=== PATIENT | female | born 1950 | race Hispanic/Latino ===

== ENCOUNTER 2018-08-12 10:14 | Inpatient (IN) | payer MEDICARE ==
[~2018-08-12] VITALS: Ht 162.6 cm; Wt 86.7 kg
[2018-08-12] MEDS ORDERED: PANTOPRAZOLE 40 MG 10ML VIAL IV NR (10:49)
--- NOTE | 2018-08-12 11:32 | Diagnostic Imaging Report ---
Examination: Single AP view of the chest. COMPARISON: None. INDICATION: Jaundice, itching DISCUSSION: Lines/tubes: None. Lungs: The lungs are well inflated and clear. There is no evidence of pneumonia or pulmonary edema. Pleura: There is no pleural effusion or pneumothorax. Heart and mediastinum: The heart and the mediastinum are unremarkable with the exception of atherosclerotic calcification of the thoracic aorta.. Bones and soft tissues: No acute bony abnormalities. IMPRESSION: 1. No acute cardiopulmonary abnormalities. Signed by: Dr. Robert Mcgee M.D. on 08/12/2018 11:29 AM
[2018-08-12 11:59] LABS: BILIRUBIN,URINE 3+ (NEGATIVE); CLARITY,URINE SL CLOUDY (CLEAR); COLOR,URINE AMBER (YELLOW); KETONES,URINE TRACE (NEGATIVE); LEUKOCYTE ESTERASE ,URINE TRACE (NEGATIVE); NITRITE,URINE NEGATIVE (NEGATIVE); PROTEIN,URINE DIPSTICK TRACE (NEGATIVE); URINE UROBILINOGEN 0.2 mg/dL (0.2 - 1)
--- NOTE | 2018-08-12 11:59 | NUR ---
UNABLE TO OBTAIN IV ACCESS AT THIS TIME.
[2018-08-12 12:00] LABS: CALCIUM OXALATE CRYSTALS,UR MANY (FEW); EPITHELIAL CELLS,URINE RARE /LPF
[2018-08-12 13:23] LABS: BASOPHILS % 0.3 % (0.0-1.0); EOSINOPHILS % 0.3 % (0.0-6.0); HEMATOCRIT 30.9 % (34.2-44.1); HEMOGLOBIN 11.4 g/dL (12.0-16.0); LYMPHOCYTES # (AUTO) 1.3 (1.0-3.2); LYMPHOCYTES % 20.5 % (18.0-39.1); MEAN CORPUSCULAR HEMOGLOBIN 31.1 pg (28-32); MEAN CORPUSCULAR HGB CONC 36.9 g/dL (31-35); MEAN CORPUSCULAR VOLUME 84.4 fL (81-99); MONOCYTES # (AUTO) 0.6 (0.2-0.8); MONOCYTES % 9.6 % (4.4-11.3); NEUTROPHILS # (AUTO) 4.4 (2.1-6.9); NEUTROPHILS % 68.8 % (38.7-80.0); PLATELET COUNT 234 x10e3/uL (140-360); RED BLOOD COUNT 3.66 x10e6/uL (3.6-5.1); RED CELL DISTRIBUTION WIDTH 19.5 % (11.7-14.4)
[2018-08-12 14:07] LABS: INR 1.23; PARTIAL THROMBOPLASTIN TIME 35.9 seconds (23.8-35.5); PROTHROMBIN TIME 16.6 seconds (11.9-14.5)
[2018-08-12 14:15] LABS: ALANINE AMINOTRANSFERASE 44 IU/L (0-55); ALBUMIN 3.4 g/dL (3.5-5.0); ALBUMIN/GLOBULIN RATIO 0.9 (0.8-2.0); ALKALINE PHOSPHATASE 506 IU/L (40-150); ANION GAP 15.8 mmol/L (8-16); BLOOD UREA NITROGEN 17 mg/dL (7-26); BUN/CREATININE RATIO 25 (6-25); CALCIUM 9.6 mg/dL (8.4-10.2); CARBON DIOXIDE 20 mmol/L (22-29); CHLORIDE 101 mmol/L (98-107); CREATINE KINASE 55 IU/L (29-168); CREATININE, SERUM 0.69 mg/dL (0.57-1.11); EST GLOMERULAR FILTRATION RATE > 60 ML/MIN (60-); GLUCOSE 139 mg/dL (74-118); LIPASE 20 U/L (8-78); MAGNESIUM 1.7 MG/DL (1.3-2.1); POTASSIUM 3.8 mmol/L (3.5-5.1); SODIUM 133 mmol/L (136-145)
[2018-08-12] MEDS ORDERED: SODIUM CHLORIDE 0.9% 1000ML 1,000 ML IV ONE (15:18)
[2018-08-12] MEDS: CEFTRIAXONE SOD 1 GM/NS 50 ML 50 ML IV SCH (16:43)
--- OUTSIDE RECORDS SUMMARY | 2018-08-12 16:45 | XMS REPORT ---
Author [facility] Address Unknown Phone Unavailable Care Team Providers Care Potato Sorter Name Role Phone Jonathan PATTERSON Unavailable Unavailable Problems This patient has no known problems. Allergies, Adverse Reactions, Alerts This patient has no known allergies or adverse reactions. Medications This patient has no known medications. Results Test Description Test Time Test Comments Text Results Atomic Results Result Comments CHEST SINGLE (PORTABLE) 2018-08-12 11:26:00 [place] [address] Patient Name: CHONG FISCHER MR #: [id number] : 1950 Age/Sex: 68/F Req #: [id number] Adm Physician: Ordered by: TAYA PATTERSON MD Report #: [id number] Location: ER Room/Bed: Procedure: [id number] DX/CHEST SINGLE (PORTABLE) Exam Date: 08/12/18 Exam Time: 1114 REPORT STATUS: Signed Examination: Single AP view of the chest. COM PARISON: None. INDICATION: Jaundice, itching DISCUSSION: Lines/tubes: None. Lungs: The lungs are well inflated and clear. There is no evidence of pneumonia or pulmonary edema. Pleura: There is no pleural effusion or pneumothorax. Heart and mediastinum: The heart and the mediastinum are unremarkable with the exception of atherosclerotic calcification of the thoracic aorta.. Bones and soft tissues: No acute bony abnormalities. IMPRESSION: 1. No acute cardiopulmonary abnormalities. Signed by: Dr. Mazin Cruz M.D. on 08/12/2018 11:29 AM Dictated By: MAZIN CRUZ MD 112 Transcribed By: VALERIE on 08/12/181128 COPY TO: TAYA PATTERSON MD
[2018-08-12] MEDS: SODIUM CHLORIDE 0.9% 1000ML 1,000 ML IV SCH (17:25)
--- NOTE | 2018-08-12 18:23 | Diagnostic Imaging Report ---
EXAM: CT Abdomen and Pelvis WITH contrast INDICATION: ^JAUNDICE. Itching all over. COMPARISON: None. TECHNIQUE: Abdomen and pelvis were scanned utilizing a multidetector helical scanner from the lung base to the pubic symphysis after administration of IV contrast. Coronal and sagittal reformations were obtained. Routine protocol was performed. Scan was performed when during portal venous phase. IV CONTRAST: 100 mL of Isovue 370 ORAL CONTRAST: Water COMPLICATIONS: None RADIATION DOSE: Total DLP: 719.05 mGy*cm Estimated effective dose: (DLP x 0.015 x size factor) mSv CTDIvol has been reviewed. It is below the limits set by the Radiation Protocol Committee (RPC). FINDINGS: LINES and TUBES: None. LOWER THORAX: There is bibasilar atelectasis. HEPATOBILIARY: No focal hepatic lesions. Significant intrahepatic and extra hepatic biliary dilatation. At the confluence of the intrahepatic bile ducts and the cystic duct it measures up to 2.0 cm (series 301, image 58). There is an acute bend resulting in mild narrowing measuring 0.9 cm (series 301, image 58). There is abrupt cut off near the ampulla measuring up to 1.1 cm (series 301, image 57). Questionable ampullary lesion measuring 1.0 cm (series 301, image 57). GALLBLADDER: There are cholecystectomy clips. SPLEEN: No splenomegaly. PANCREAS: No focal masses or ductal dilatation. Diffuse pancreatic atrophy. ADRENALS: No adrenal nodules KIDNEYS/URETERS: Kidneys enhance symmetrically. No hydronephrosis. 1.2 cm cyst in the anterior interpolar region of the right kidney. No stones. GI TRACT: Diffuse colonic wall thickening of the transverse colon and ascending colon. There is sparing of the cecum. No abnormal distention, wall thickening, or evidence of bowel obstruction in the small bowel. Appendix is not clearly identified. There is however no fat stranding or adenopathy in the right lower quadrant to suggest appendicitis. PELVIC ORGANS/BLADDER: Unremarkable. LYMPH NODES: No lymphadenopathy. VESSELS: Unremarkable. PERITONEUM / RETROPERITONEUM: No free air or fluid. BONES: Unremarkable. SOFT TISSUES: Unremarkable. IMPRESSION: 1. Significant intrahepatic and extra hepatic biliary dilatation with abrupt cutoff near the ampulla with a questionable 1.0 cm ampullary lesion. Recommend ERCP. 2. Ascending colon and transverse colonic wall thickening. This may be infectious or inflammatory. This may also be reactive secondary to hepatobiliary issues. Signed by: Dr. Sy Lazaro M.D. on 08/12/2018 6:20 PM
[2018-08-12 20:31] VITALS: BP 119/63
[2018-08-12 20:37] VITALS: BP 119/63
--- NOTE | 2018-08-12 20:40 | NUR ---
RECEIVED PATIENT FROM ER. AAOX4. NO RESP DISTRESS AT THIS TIME. DENIES PAIN. HAS IV TO L SHOULDER ARRIVED WITH BRUISING AND SWELLING, BUT NO LEAKS. C/O BURNING SENSATION WITH N/S FLUSH. NO OPEN WOUNDS. ORIENTED TO ROOM. CALL LIGHT WITHIN REACH AND INSTRUCTED TO CALL FOR ASSISTANCE. PATIENT VERBALIZED UNDERSTANDING.
[2018-08-12] MEDS ORDERED: METFORMIN HCL1000 MG PO (20:41)
[2018-08-12] MEDS ORDERED: LISINOPRIL2.5 MG PO (20:43)
[2018-08-12] MEDS ORDERED: PIOGLITAZONE HC45 MG PO (20:43)
[2018-08-12] MEDS ORDERED: LOVASTATIN20 MG (20:44)
[2018-08-12] MEDS ORDERED: VITAMIN D1000 UNI1 PO (20:46)
[2018-08-12] MEDS: INSULIN LISPRO 100 UNIT/1 ML 3ML VIAL SQ SCH (21:24)
[2018-08-12 21:30] VITALS: BP 119/63
[2018-08-12] MEDS ORDERED: SODIUM CHLORIDE 0.9% 50ML 50 ML ONE (21:51)
[2018-08-12] MEDS ORDERED: IOPAMIDOL 370 MG/ML 200 ML INFUS..BTL INJ ONE (21:51)
--- NOTE | 2018-08-12 22:30 | NUR ---
ATTEMPTED TO ACCESS NEW IV BUT WAS UNSUCCESSFUL. REPORTED TO CHARGE NURSE.
[2018-08-13] VITALS (8 sets, daily range): BP systolic 109–126; BP diastolic 54–59
[2018-08-13] MEDS: SODIUM CHLORIDE 0.9% 1000ML 1,000 ML IV SCH ×3 (02:35→22:35)
--- NOTE | 2018-08-13 06:38 | NUR ---
NEW IV ACCESS OBTAINED AT THIS TIME. OLD IV REMOVED WITH TIP INTACT. PATIENT TOLERATED PROCEDURE WELL.
[2018-08-13 06:52] LABS: BASOPHILS % 0.6 % (0.0-1.0); EOSINOPHILS # (AUTO) 0.1 (0.0-0.4); EOSINOPHILS % 0.9 % (0.0-6.0); HEMATOCRIT 30.6 % (34.2-44.1); HEMOGLOBIN 11.1 g/dL (12.0-16.0); LYMPHOCYTES # (AUTO) 0.8 (1.0-3.2); LYMPHOCYTES % 14.4 % (18.0-39.1); MEAN CORPUSCULAR HEMOGLOBIN 31.4 pg (28-32); MEAN CORPUSCULAR HGB CONC 36.3 g/dL (31-35); MEAN CORPUSCULAR VOLUME 86.4 fL (81-99); MONOCYTES # (AUTO) 0.6 (0.2-0.8); MONOCYTES % 11.6 % (4.4-11.3); NEUTROPHILS # (AUTO) 3.9 (2.1-6.9); NEUTROPHILS % 71.9 % (38.7-80.0); PLATELET COUNT 223 x10e3/uL (140-360); RED BLOOD COUNT 3.54 x10e6/uL (3.6-5.1); RED CELL DISTRIBUTION WIDTH 20.5 % (11.7-14.4)
--- NOTE | 2018-08-13 07:08 | NUR ---
RECEIVED PATIENT RESTING IN BED. RESPIRATIONS EVEN AND UNLABORED, NO ACUTE DISTRESS NOTED. CALL LIGHT WITHIN REACH. BED IN THE LOWEST POSITION.
[2018-08-13] MEDS: INSULIN LISPRO 100 UNIT/1 ML 3ML VIAL SQ SCH ×4 (07:30→21:42)
[2018-08-13 07:36] LABS: ALANINE AMINOTRANSFERASE 41 IU/L (0-55); BLOOD UREA NITROGEN 14 mg/dL (7-26); BUN/CREATININE RATIO 19 (6-25); CALCIUM 9.4 mg/dL (8.4-10.2); CARBON DIOXIDE 19 mmol/L (22-29); CHLORIDE 103 mmol/L (98-107); CREATININE, SERUM 0.72 mg/dL (0.57-1.11); EST GLOMERULAR FILTRATION RATE > 60 ML/MIN (60-); GLUCOSE 138 mg/dL (74-118); SODIUM 132 mmol/L (136-145)
[2018-08-13 07:37] LABS: ALBUMIN/GLOBULIN RATIO 0.8 (0.8-2.0); ALKALINE PHOSPHATASE 466 IU/L (40-150)
[2018-08-13] MEDS ORDERED: HYDRALAZINE HCL 20 MG/ML VIAL IV PRN (08:15)
[2018-08-13] MEDS ORDERED: DIPHENHYDRAMINE HCL 25 MG CAP PO PRN (08:15)
[2018-08-13] MEDS: PANTOPRAZOLE 40 MG 10ML VIAL IV SCH (09:02)
[2018-08-13] MEDS ORDERED: CHOLESTYRAMINE 4 GM PACKET PO PRN (11:15)
--- NOTE | 2018-08-13 11:20 | NUR ---
CALLED DR. Amadeo TERRY'S OFFICE AND SPOKE TO SUNNI IN REGARDS TO PATIENT CONSULT. SUNNI PARISH MD.
--- NOTE | 2018-08-13 11:25 | Consultation ---
DATE OF CONSULTATION: August 13, 2018 WOUND CARE CONSULTATION REASON FOR CONSULTATION: Generalized rash. HISTORY OF PRESENT ILLNESS: This 68-year-old female patient has been having extensive pruritus with scratch gross and skin breakdown to the extremities and abdomen. The patient also was getting jaundiced. She was evaluated in the ER. The patient had severe hyperbilirubinemia with bilirubin above 10. CT showed evidence of a 1.1-cm ampullary filling defect consistent with an ampullary lesion. The patient was being treated at for the rash for a few weeks. PAST MEDICAL HISTORY: Diabetes mellitus and hypertension. SURGICAL HISTORY: Cholecystectomy. PERSONAL HISTORY: Denies smoking and alcohol. GENERAL PHYSICAL EXAMINATION VITALS: Blood pressure 118/70, pulse 80. HEENT: Normal. NECK: No JVD. LUNGS: Clear. ABDOMEN: Soft. Bowel sounds present. LOWER EXTREMITIES: No edema. SKIN: She is icteric and has dry skin with scratch gross and papular eruption from chronic pruritus and itching. 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 Also, the patient has steatosis. PLAN: GI consultation and workup for ampullary lesion, most likely pancreatic cancer. May apply moist dressing and Marisol and start cholestyramine. Job#: [id number] TRINITY TAMEZ
[2018-08-13] MEDS ORDERED: DIPHENHYDRAMINE HCL INJ 50 MG/ML VIAL IV ONE (11:30)
--- NOTE | 2018-08-13 15:32 | NUR ---
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 Labs and meds reviewed. 68yo F, who was admitted for generalized rash and jaundice. GI consulted for possible ERCP. 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 Pt denied chewing/swallowing problems and nausea/vomiting. Pt was NPO; clear liquid was later ordered. Will cont to monitor. Please consult as needed. Current Diet: clear liquid diet Malnutrition Evaluation (08/13/2018) The patient does not meet criteria for a specified degree of malnutrition at this time. Will re-evaluate at follow-up as appropriate. Diet Education Needs Assessment: Diet education not indicated. Nutrition Care Level: low Signed: Christine Marsh, MS, RD, LD
[2018-08-13] MEDS: AMMONIUM LACTATE 12% LOTION 225GM BTL TOP SCH (16:19)
[2018-08-13] MEDS: PIOGLITAZONE HCL 45 MG TAB PO SCH (16:19)
[2018-08-13] MEDS: LISINOPRIL 2.5 MG TAB PO SCH (16:19)
[2018-08-13] MEDS: CEFTRIAXONE SOD 1 GM/NS 50 ML 50 ML IV SCH (16:19)
--- NOTE | 2018-08-13 19:34 | NUR ---
REPORT GIVEN TO ONCOMING NURSE, WALKING ROUNDS DONE. PATIENT RESTING IN BED. NO ACUTE DISTRESS NOTED. FAMILY AT BEDSIDE. CALL LIGHT WITHIN REACH. BED IN THE LOWEST POSITION.
[2018-08-13] MEDS ORDERED: PERMETHRIN60 GM TOP (20:02)
[2018-08-13] MEDS: SIMVASTATIN 20 MG TAB PO SCH (21:42)
[2018-08-14] VITALS: BP 112/54
--- NOTE | 2018-08-14 00:46 | NUR ---
Received patient from day nurse, patient is alert and oriented, introduced myself to patient and patient made aware of the importance of calling for help, patient verbalized understanding. safety and fall precaution maintained as per hospital protocol:bed in lowest position and locked, needed items beside bed and call hyman placed close to patient, yellow socks on patient, bed alarm set, and room made free of clutter. patient is currently stable will continue to monitor.
--- NOTE | 2018-08-14 00:51 | NUR ---
2000: patient rounded : bed in lowest position and locked, needed items beside bed and call hyman placed close to patient, yellow socks on patient, bed alarm is on, room is free of clutter. patient is currently stable will continue to monitor. 2200: patient rounded : bed in lowest position and locked, needed items beside bed and call hyman placed close to patient, yellow socks on patient, bed alarm is on, room is free of clutter. patient is currently stable will continue to monitor
[2018-08-14 04:00] VITALS: BP 126/60
[2018-08-14 06:10] LABS: BASOPHILS % 0.4 % (0.0-1.0); EOSINOPHILS # (AUTO) 0.1 (0.0-0.4); EOSINOPHILS % 1.1 % (0.0-6.0); HEMATOCRIT 28.1 % (34.2-44.1); HEMOGLOBIN 10.1 g/dL (12.0-16.0); LYMPHOCYTES # (AUTO) 1.2 (1.0-3.2); LYMPHOCYTES % 23.3 % (18.0-39.1); MEAN CORPUSCULAR HEMOGLOBIN 31.1 pg (28-32); MEAN CORPUSCULAR HGB CONC 35.9 g/dL (31-35); MEAN CORPUSCULAR VOLUME 86.5 fL (81-99); MONOCYTES # (AUTO) 0.6 (0.2-0.8); MONOCYTES % 10.9 % (4.4-11.3); NEUTROPHILS # (AUTO) 3.4 (2.1-6.9); NEUTROPHILS % 63.5 % (38.7-80.0); PLATELET COUNT 224 x10e3/uL (140-360); RED BLOOD COUNT 3.25 x10e6/uL (3.6-5.1); RED CELL DISTRIBUTION WIDTH 20.2 % (11.7-14.4)
--- NOTE | 2018-08-14 06:19 | NUR ---
0200: patient rounded : bed in lowest position and locked, needed items beside bed and call hyman placed close to patient, yellow socks on patient, bed alarm is on, room is free of clutter. patient is currently stable will continue to monitor. 0600: patient rounded : bed in lowest position and locked, needed items beside bed and call hyman placed close to patient, yellow socks on patient, bed alarm is on, room is free of clutter. patient is currently stable will continue to monitor.
[2018-08-14 06:35] LABS: ANION GAP 12.7 mmol/L (8-16); BLOOD UREA NITROGEN 10 mg/dL (7-26); BUN/CREATININE RATIO 14 (6-25); CALCIUM 9.1 mg/dL (8.4-10.2); CARBON DIOXIDE 21 mmol/L (22-29); CHLORIDE 103 mmol/L (98-107); CREATININE, SERUM 0.69 mg/dL (0.57-1.11); EST GLOMERULAR FILTRATION RATE > 60 ML/MIN (60-); GLUCOSE 94 mg/dL (74-118); MAGNESIUM 1.3 MG/DL (1.3-2.1); POTASSIUM 3.7 mmol/L (3.5-5.1); SODIUM 133 mmol/L (136-145)
--- NOTE | 2018-08-14 06:46 | NUR ---
Patient condition throughout the night was stable, report given to Nurse Mcmullen for continuity of care.
[2018-08-14 07:02] LABS: FREE T4 (FREE THYROXINE) 1.07 ng/dL (0.9-1.8); THYROID STIMULATING HORMONE 3.683 uIU/mL (0.350-4.940)
[2018-08-14] MEDS: INSULIN LISPRO 100 UNIT/1 ML 3ML VIAL SQ SCH ×4 (07:30→21:00)
[2018-08-14 08:00] VITALS: BP 129/58
[2018-08-14] MEDS: SODIUM CHLORIDE 0.9% 1000ML 1,000 ML IV SCH ×2 (08:35→18:25)
[2018-08-14 08:48] VITALS: BP 129/58
[2018-08-14] MEDS: LISINOPRIL 2.5 MG TAB PO SCH (08:48)
[2018-08-14] MEDS: PIOGLITAZONE HCL 45 MG TAB PO SCH (08:48)
[2018-08-14] MEDS: PANTOPRAZOLE 40 MG 10ML VIAL IV SCH (08:48)
[2018-08-14] MEDS: AMMONIUM LACTATE 12% LOTION 225GM BTL TOP SCH ×2 (09:25→17:08)
[2018-08-14 12:00] VITALS: BP 120/56
[2018-08-14] MEDS ORDERED: IOPAMIDOL 610MG/1ML 300 MG/ML VIAL IV ONE (13:37)
[2018-08-14] MEDS ORDERED: INDOMETHACIN 50 MG SUPP.RECT RC ONE (14:07)
[2018-08-14] MEDS ORDERED: LIDOCAINE HCL 2% LOCAL INJ 5 ML SDV VIAL INJ ONE (14:20)
[2018-08-14] MEDS ORDERED: GLUCAGON FOR INJ 1 MG VIAL ONE (14:20)
[2018-08-14] MEDS ORDERED: ROCURONIUM BROMIDE 10 MG/ML 5ML VIAL ONE (14:20)
[2018-08-14] MEDS ORDERED: LABETALOL HCL 5 MG/ML 20ML VIAL ONE (14:20)
[2018-08-14] MEDS ORDERED: PROPOFOL IV EMULSION 10 MG/ML 20 ML VIAL ONE (14:20)
[2018-08-14] MEDS ORDERED: SUCCINYLCHOLINE 200 MG/10 ML SYR ONE (14:20)
--- NOTE | 2018-08-14 15:19 | NUR ---
PT OUT FOR TESTS. CM UNABLE TO ASSESS AND GET IMM.
[2018-08-14] MEDS: CEFTRIAXONE SOD 1 GM/NS 50 ML 50 ML IV SCH (16:08)
--- NOTE | 2018-08-14 16:31 | NUR ---
Spoke with Dr. Omer regarding new surgical consult for patient.
[2018-08-14] MEDS ORDERED: MIDAZOLAM HCL 2 MG/2 ML VIAL ONE (18:21)
[2018-08-14] MEDS ORDERED: FENTANYL CITRATE/PF 100MCG/2 ML INJ ONE (18:21)
[2018-08-14 20:00] VITALS: BP 134/60
[2018-08-14] MEDS: SIMVASTATIN 20 MG TAB PO SCH (21:00)
--- NOTE | 2018-08-14 23:11 | Operative Report ---
DATE OF PROCEDURE: 08/14/2018 PROCEDURE: Endoscopic retrograde cholangiopancreatography with biopsies. ADDITIONAL REFERRING PHYSICIAN: Dr. Lj Najera. INDICATION FOR PROCEDURE: Obstructive jaundice, ampullary lesion on CT scan of the abdomen. MEDICATIONS: The patient was done under general endotracheal anesthesia. Please see anesthesiologist's note. PROCEDURE IN DETAIL: With the patient after induction of adequate general endotracheal anesthesia and in the prone position, the flexible fiberoptic Olympus ERCP scope was introduced into the esophagus and all the way down into the second portion of the duodenum. An ulcerated friable lesion was noted in the periampullary area that was impinging upon the ampulla. Despite multiple attempts, the ampulla could not be away in a common bile duct cannulating position and the common bile duct could not be cannulated. Biopsies were obtained from the lesion. The scope was subsequently withdrawn. The patient tolerated procedure well. IMPRESSION: Ulcerated friable lesion, periampullary area impinging upon the ampulla. Ampulla could not be away in common bile duct position for CBD cannulation. PLAN: Followup pathology. The patient will need IR consult for external drainage and general surgical consultation. MD RENA Ackerman/AVEL /[id number] cc: Lj Bravo MD
[2018-08-15] VITALS (7 sets, daily range): BP systolic 119–155; BP diastolic 56–68
[2018-08-15] MEDS: SODIUM CHLORIDE 0.9% 1000ML 1,000 ML IV SCH ×2 (04:45→14:42)
--- NOTE | 2018-08-15 06:00 | NUR ---
0200: patient rounded : bed in lowest position and locked, needed items beside bed and call hyman placed close to patient, yellow socks on patient, bed alarm is on, room is free of clutter. patient is currently stable will continue to monitor. 0600: patient rounded : bed in lowest position and locked, needed items beside bed and call hyman placed close to patient, yellow socks on patient, bed alarm is on, room is free of clutter. patient is currently stable will continue to monitor. 0645: Report given to telly Quarles
[2018-08-15 06:14] LABS: BASOPHILS % 0.3 % (0.0-1.0); EOSINOPHILS # (AUTO) 0.1 (0.0-0.4); EOSINOPHILS % 1.3 % (0.0-6.0); HEMATOCRIT 26.1 % (34.2-44.1); HEMOGLOBIN 9.6 g/dL (12.0-16.0); LYMPHOCYTES # (AUTO) 1.2 (1.0-3.2); MEAN CORPUSCULAR HEMOGLOBIN 31.5 pg (28-32); MEAN CORPUSCULAR HGB CONC 36.8 g/dL (31-35); MEAN CORPUSCULAR VOLUME 85.6 fL (81-99); MONOCYTES # (AUTO) 0.6 (0.2-0.8); MONOCYTES % 10.1 % (4.4-11.3); NEUTROPHILS # (AUTO) 4.4 (2.1-6.9); NEUTROPHILS % 68.8 % (38.7-80.0); PLATELET COUNT 218 x10e3/uL (140-360); RED BLOOD COUNT 3.05 x10e6/uL (3.6-5.1); RED CELL DISTRIBUTION WIDTH 20.7 % (11.7-14.4)
--- NOTE | 2018-08-15 06:15 | NUR ---
patient condition throughout the night was stable, patient endorsed to next shit(telly Quarles) for continuity of care
[2018-08-15 06:31] LABS: INR 1.31; PROTHROMBIN TIME 17.4 seconds (11.9-14.5)
[2018-08-15 06:53] LABS: ALANINE AMINOTRANSFERASE 38 IU/L (0-55); ALBUMIN 2.8 g/dL (3.5-5.0); ALBUMIN/GLOBULIN RATIO 0.8 (0.8-2.0); ALKALINE PHOSPHATASE 443 IU/L (40-150); ANION GAP 12.1 mmol/L (8-16); BLOOD UREA NITROGEN 14 mg/dL (7-26); BUN/CREATININE RATIO 20 (6-25); CALCIUM 8.9 mg/dL (8.4-10.2); CARBON DIOXIDE 22 mmol/L (22-29); CHLORIDE 107 mmol/L (98-107); CREATININE, SERUM 0.71 mg/dL (0.57-1.11); EST GLOMERULAR FILTRATION RATE > 60 ML/MIN (60-); GLUCOSE 89 mg/dL (74-118); POTASSIUM 4.1 mmol/L (3.5-5.1); SODIUM 137 mmol/L (136-145)
[2018-08-15] MEDS: INSULIN LISPRO 100 UNIT/1 ML 3ML VIAL SQ SCH ×4 (07:30→21:00)
[2018-08-15] MEDS: LISINOPRIL 2.5 MG TAB PO SCH (08:15)
[2018-08-15] MEDS: PIOGLITAZONE HCL 45 MG TAB PO SCH (08:15)
[2018-08-15] MEDS ORDERED: CHLORASEPTIC SPRAY 177 ML BTL MM PRN (09:30)
[2018-08-15] MEDS: AMMONIUM LACTATE 12% LOTION 225GM BTL TOP SCH ×2 (09:31→16:38)
[2018-08-15] MEDS: PANTOPRAZOLE 40 MG 10ML VIAL IV SCH (09:31)
--- NOTE | 2018-08-15 13:42 | Consultation ---
DATE OF CONSULTATION: August 15, 2018 CHIEF COMPLAINT: Jaundice and pleuritis. HISTORY OF PRESENT ILLNESS: Patient is a 68-year-old female who was in good health until approximately 3 months ago when she experienced increasing evidence of skin jaundice and itching. She denies abdominal pain or vomiting. No diarrhea. No fever or chills. The patient's appetite has been normal until recently. No significant weight loss. PAST MEDICAL HISTORY: Significant for hypertension and diabetes. SURGICAL HISTORY: Positive for cholecystectomy. REVIEW OF SYSTEMS: No chest pain, shortness of breath or cough. Low back pain. ALLERGIES: SHE HAS NO DRUG ALLERGIES. SOCIAL HABITS: No history of smoking or alcohol abuse. PHYSICAL EXAMINATION VITAL SIGNS: Afebrile. Vital signs are stable. GENERAL: She is awake, alert, in no apparent distress. HEENT: Sclerae are nonicteric. NECK: Supple. LUNGS: Clear. HEART: Regular rate and rhythm. ABDOMEN: Soft with some guarding in the epigastric area without rebound tenderness. EXTREMITIES: Without cyanosis or edema. LABS: White cell count 6, hemoglobin 9.6. Creatinine of 0.7. Bilirubin showed 10.6 with alkaline phosphatase of 443. CT of the abdomen revealed intrahepatic and extrahepatic biliary dilatation with cutoff near the ampulla, possible 1-cm ampullary lesion. ERCP showed ulcerated, friable lesion in the ampullary regions precluding access into the common bile duct. ASSESSMENT: Jaundice and pruritus secondary to biliary tree obstruction at the ampullary region. Biopsy pending. PLAN: Clear liquid diet. Will follow the patient's pending pathology findings. Job#: [id number]
[2018-08-15] MEDS: CEFTRIAXONE SOD 1 GM/NS 50 ML 50 ML IV SCH (16:38)
--- NOTE | 2018-08-15 20:23 | NUR ---
RECEIVED PT IN BED AOX3 RESPIRATIONS ARE EVEN AND UNLABORED .DENIES PAIN .FAMILY AT THE BEDSIDE
[2018-08-15] MEDS: SIMVASTATIN 20 MG TAB PO SCH (21:22)
[2018-08-16] VITALS (9 sets, daily range): BP systolic 123–138; BP diastolic 57–64
[2018-08-16] MEDS: SODIUM CHLORIDE 0.9% 1000ML 1,000 ML IV SCH (02:44)
[2018-08-16 03:14] LABS: BASOPHILS % 0.5 % (0.0-1.0); EOSINOPHILS # (AUTO) 0.1 (0.0-0.4); EOSINOPHILS % 1.3 % (0.0-6.0); HEMATOCRIT 26.7 % (34.2-44.1); HEMOGLOBIN 9.8 g/dL (12.0-16.0); LYMPHOCYTES # (AUTO) 1.2 (1.0-3.2); LYMPHOCYTES % 19.9 % (18.0-39.1); MEAN CORPUSCULAR HEMOGLOBIN 31.5 pg (28-32); MEAN CORPUSCULAR HGB CONC 36.7 g/dL (31-35); MEAN CORPUSCULAR VOLUME 85.9 fL (81-99); MONOCYTES # (AUTO) 0.6 (0.2-0.8); MONOCYTES % 9.5 % (4.4-11.3); NEUTROPHILS # (AUTO) 4.1 (2.1-6.9); NEUTROPHILS % 68.1 % (38.7-80.0); PLATELET COUNT 205 x10e3/uL (140-360); RED BLOOD COUNT 3.11 x10e6/uL (3.6-5.1); RED CELL DISTRIBUTION WIDTH 21.6 % (11.7-14.4)
[2018-08-16 03:32] LABS: ALANINE AMINOTRANSFERASE 40 IU/L (0-55); ALBUMIN 2.8 g/dL (3.5-5.0); ALKALINE PHOSPHATASE 479 IU/L (40-150); ANION GAP 14.7 mmol/L (8-16); BILIRUBIN,DIRECT 8.4 mg/dL (0.0-0.5); BLOOD UREA NITROGEN 11 mg/dL (7-26); BUN/CREATININE RATIO 16 (6-25); CALCIUM 8.9 mg/dL (8.4-10.2); CARBON DIOXIDE 18 mmol/L (22-29); CHLORIDE 106 mmol/L (98-107); CREATININE, SERUM 0.68 mg/dL (0.57-1.11); EST GLOMERULAR FILTRATION RATE > 60 ML/MIN (60-); GLUCOSE 85 mg/dL (74-118); POTASSIUM 3.7 mmol/L (3.5-5.1); SODIUM 135 mmol/L (136-145)
--- NOTE | 2018-08-16 06:01 | NUR ---
PT RESTING .DENIES PAIN .FAMILY AT THE BEDSIDE .CALL LIGHT WITH IN REACH .CONTINUE TO MONITOR
--- NOTE | 2018-08-16 07:08 | NUR ---
RECEIVED PATIENT RESTING IN BED. RESPIRATIONS EVEN AND UNLABORED. NO ACUTE DISTRESS NOTED. DENIES PAIN OR DISCOMFORT. DAUGHTER AT BEDSIDE. CALL LIGHT WITHIN REACH. BED IN THE LOWEST POSITION.
--- NOTE | 2018-08-16 07:22 | NUR ---
REPORT GIVEN TOT HE ON COMING NURSE
[2018-08-16] MEDS: INSULIN LISPRO 100 UNIT/1 ML 3ML VIAL SQ SCH ×4 (07:30→21:00)
[2018-08-16] MEDS: LISINOPRIL 2.5 MG TAB PO SCH (08:42)
[2018-08-16] MEDS: PANTOPRAZOLE 40 MG 10ML VIAL IV SCH (08:42)
[2018-08-16] MEDS: PIOGLITAZONE HCL 45 MG TAB PO SCH (08:42)
[2018-08-16] MEDS: AMMONIUM LACTATE 12% LOTION 225GM BTL TOP SCH ×2 (08:42→16:50)
--- NOTE | 2018-08-16 09:15 | NUR ---
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 CM/SW role and care transitions discussed. Anticipated discharge plan discussed along with duration of care. CM/SW discussed patients right to make decisions in care. CM/SW work hours given. Patient lives: [place] Admit/Transfer: ER Hospital/ER visits since last admit: NONE POA/Emergency contact: @ [phone] Current/Previous Home Health: NONE PCP/Follow-up Care: Current/Previous DME: NONE Other Services: NONE Employment Status: UNEMPLOYED Areas of Concerns: JAUNDICE AND ITCHING Referral Needs: WILL ASSESS Education Needs: NOT AT THIS TIME IMM/SALINAS given and signed (if applicable): GIVEN Goal for discharge: RETURN HOME SAFELY CM/SW left business card at the bedside with contact information. Name and number was also written on the patients whiteboard. Patient verbalized understanding of discussion. CM will follow-up with ongoing discharge and transition of care needs.
--- NOTE | 2018-08-16 14:27 | Diagnostic Imaging Report ---
EXAM: Magnetic Resonance Cholangiopancreatography (M.R.C.P.) INDICATION: ^OBSTRUCTIVE JAUNDICE COMPARISON: CT abdomen and pelvis 08/12/2018. ERCP 08/14/2018 TECHNIQUE: Multiplanar, multisequence MRCP was performed, with sequences including coronal turbo spin-echo T1-weighted scans, [facility] MRCP scans, coronal spin, coronal MPR 2, SMRCP 3D HR, [facility] MRCP KELLY performed on the scanner workstation by the technologist. IV Contrast: None Oral Contrast: None Medications: None COMPLICATIONS: None FINDINGS: LOWER THORAX: Unremarkable. HEPATOBILIARY: No focal hepatic lesions. * Significant intrahepatic biliary dilatation with being in appearance. The left biliary radicals measure up to 1.2 cm (series 8, image 20). * Multifocal beaded appearance of the intrahepatic bile ducts. * Questionable filling defects identified in the intrahepatic bile ducts (series 12, image 14) (series 11, image 15). * Common bile duct is dilated measuring 1.9 cm in diameter (series 8, image 18). * Acute tortuosity with distal common bile duct measuring 1.2 cm in diameter (series 8, image 19). This abruptly terminates at a 2.0 x 2.6 cm hypointense mass within the pancreatic head. GALLBLADDER: There are blooming artifacts at the gallbladder fossa, consistent with cholecystectomy clips. SPLEEN: No splenomegaly. PANCREAS: No focal masses or ductal dilatation. See above in hepatobiliary section. ADRENALS: No adrenal nodules KIDNEYS/URETERS: No hydronephrosis. 1.2 cm cyst in the anterior superior pole of the right kidney. 0.9 cm cyst in superior pole of the left kidney. No stones. GI TRACT: No abnormal distention, wall thickening, or evidence of bowel obstruction. LYMPH NODES: No lymphadenopathy. VESSELS: Unremarkable. PERITONEUM / RETROPERITONEUM: No free air or fluid. BONES: Unremarkable. SOFT TISSUES: Unremarkable. IMPRESSION: 1. Exam is performed without gadolinium which limits evaluation for cholangiocarcinoma. 2. 2.0 x 2.6 cm hypointense mass within the pancreatic head/ampulla causing significant intrahepatic and extra hepatic biliary dilatation. 3. Filling defects identified in the intrahepatic bile ducts, worrisome for stones or hemorrhagic products. This is less likely air related to ERCP. 4. Beaded appearance of the intrahepatic bile ducts. This raises the possibility of primary sclerosing cholangitis versus [place] cholangitis (related to the filling defects that may represent stones). Signed by: Dr. Sy Lazaro M.D. on 08/16/2018 2:23 PM
[2018-08-16] MEDS: CEFTRIAXONE SOD 1 GM/NS 50 ML 50 ML IV SCH (16:50)
--- NOTE | 2018-08-16 17:05 | NUR ---
PT OUT FOR TESTS TODAY
--- NOTE | 2018-08-16 19:27 | NUR ---
REPORT GIVEN TO ONCOMING NURSE, WALKING ROUNDS DONE. PATIENT IS RESTING IN BED. NO ACUTE DISTRESS NOTED. DAUGHTERS AT BEDSIDE. CALL LIGHT WITHIN REACH. BED IN THE LOWEST POSITION.
--- NOTE | 2018-08-16 19:44 | NUR ---
PT IS RESTING IN BED WITH FAMILY AT BEDSIDE. NO RESPIRATORY DISTRESS NOTED. BED IN THE LOWEST POSITION, LOCKED, AND CALL LIGHT WITHIN REACH. WILL CONTINUE TO MONITOR.
[2018-08-16] MEDS: SIMVASTATIN 20 MG TAB PO SCH (22:16)
[2018-08-17] VITALS (9 sets, daily range): BP systolic 115–140; BP diastolic 56–65
[2018-08-17 04:09] LABS: BASOPHILS % 0.4 % (0.0-1.0); EOSINOPHILS # (AUTO) 0.1 (0.0-0.4); EOSINOPHILS % 1.7 % (0.0-6.0); HEMATOCRIT 25.8 % (34.2-44.1); HEMOGLOBIN 9.2 g/dL (12.0-16.0); LYMPHOCYTES % 18.2 % (18.0-39.1); MEAN CORPUSCULAR HEMOGLOBIN 30.9 pg (28-32); MEAN CORPUSCULAR HGB CONC 35.7 g/dL (31-35); MEAN CORPUSCULAR VOLUME 86.6 fL (81-99); MONOCYTES # (AUTO) 0.6 (0.2-0.8); MONOCYTES % 11.8 % (4.4-11.3); NEUTROPHILS # (AUTO) 3.7 (2.1-6.9); NEUTROPHILS % 67.2 % (38.7-80.0); PLATELET COUNT 202 x10e3/uL (140-360); RED BLOOD COUNT 2.98 x10e6/uL (3.6-5.1); RED CELL DISTRIBUTION WIDTH 21.5 % (11.7-14.4)
[2018-08-17 04:30] LABS: BLOOD UREA NITROGEN 8 mg/dL (7-26); BUN/CREATININE RATIO 12 (6-25); CALCIUM 9.1 mg/dL (8.4-10.2); CHLORIDE 107 mmol/L (98-107); CREATININE, SERUM 0.68 mg/dL (0.57-1.11); EST GLOMERULAR FILTRATION RATE > 60 ML/MIN (60-); GLUCOSE 98 mg/dL (74-118); MAGNESIUM 1.4 MG/DL (1.3-2.1); POTASSIUM 3.7 mmol/L (3.5-5.1); SODIUM 136 mmol/L (136-145)
[2018-08-17 05:32] LABS: ANION GAP 12.7 mmol/L (8-16); CARBON DIOXIDE 20 mmol/L (22-29)
--- NOTE | 2018-08-17 07:00 | NUR ---
RECEIVED PATIENT RESTING IN BED. RESPIRATIONS EVEN AND UNLABORED, NO ACUTE DISTRESS NOTED. PATIENT DENIES PAIN OR DISCOMFORT AT THIS TIME. DAUGHTER AT BEDSIDE. CALL LIGHT WITHIN REACH. BED IN THE LOWEST POSITION.
[2018-08-17] MEDS: INSULIN LISPRO 100 UNIT/1 ML 3ML VIAL SQ SCH ×4 (07:30→21:00)
[2018-08-17] MEDS: PANTOPRAZOLE 40 MG 10ML VIAL IV SCH (08:03)
[2018-08-17] MEDS: PIOGLITAZONE HCL 45 MG TAB PO SCH (08:03)
[2018-08-17] MEDS: LISINOPRIL 2.5 MG TAB PO SCH (08:04)
[2018-08-17] MEDS: AMMONIUM LACTATE 12% LOTION 225GM BTL TOP SCH ×2 (08:04→16:48)
[2018-08-17] MEDS: CEFTRIAXONE SOD 1 GM/NS 50 ML 50 ML IV SCH (15:42)
--- NOTE | 2018-08-17 19:28 | NUR ---
REPORT GIVEN TO ONCOMING NURSE, WALKING ROUNDS DONE. PATIENT IS RESTING IN BED. NO ACUTE DISTRESS NOTED. DAUGHTER AT BEDSIDE. DENIES PAIN OR DISCOMFORT. CALL LIGHT WITHIN REACH. BED IN THE LOWEST POSITION.
[2018-08-17] MEDS: SIMVASTATIN 20 MG TAB PO SCH (22:03)
[2018-08-18] VITALS (8 sets, daily range): BP systolic 112–139; BP diastolic 53–63
[2018-08-18 05:57] LABS: BASOPHILS % 0.6 % (0.0-1.0); EOSINOPHILS # (AUTO) 0.1 (0.0-0.4); EOSINOPHILS % 1.7 % (0.0-6.0); HEMATOCRIT 28.9 % (34.2-44.1); HEMOGLOBIN 10.4 g/dL (12.0-16.0); LYMPHOCYTES # (AUTO) 0.9 (1.0-3.2); LYMPHOCYTES % 16.9 % (18.0-39.1); MEAN CORPUSCULAR HEMOGLOBIN 30.5 pg (28-32); MEAN CORPUSCULAR VOLUME 84.8 fL (81-99); MONOCYTES # (AUTO) 0.6 (0.2-0.8); MONOCYTES % 11.9 % (4.4-11.3); NEUTROPHILS # (AUTO) 3.7 (2.1-6.9); NEUTROPHILS % 68.2 % (38.7-80.0); PLATELET COUNT 193 x10e3/uL (140-360); RED BLOOD COUNT 3.41 x10e6/uL (3.6-5.1); RED CELL DISTRIBUTION WIDTH 22.2 % (11.7-14.4)
[2018-08-18 06:20] LABS: ALANINE AMINOTRANSFERASE 38 IU/L (0-55); ALBUMIN 2.7 g/dL (3.5-5.0); ALKALINE PHOSPHATASE 449 IU/L (40-150); ANION GAP 12.8 mmol/L (8-16); BILIRUBIN,DIRECT 8.7 mg/dL (0.0-0.5); BLOOD UREA NITROGEN 7 mg/dL (7-26); BUN/CREATININE RATIO 11 (6-25); CALCIUM 9.2 mg/dL (8.4-10.2); CARBON DIOXIDE 22 mmol/L (22-29); CHLORIDE 106 mmol/L (98-107); CREATININE, SERUM 0.64 mg/dL (0.57-1.11); EST GLOMERULAR FILTRATION RATE > 60 ML/MIN (60-); GLUCOSE 96 mg/dL (74-118); POTASSIUM 3.8 mmol/L (3.5-5.1); SODIUM 137 mmol/L (136-145)
--- NOTE | 2018-08-18 07:08 | NUR ---
Report given to oncoming nurse,walking round done.
--- NOTE | 2018-08-18 07:08 | NUR ---
RECEIVED PATIENT RESTING IN BED. NO ACUTE DISTRESS NOTED. DAUGHTER AT BEDSIDE. CALL LIGHT WITHIN REACH. BED IN THE LOWEST POSITION.
[2018-08-18] MEDS: INSULIN LISPRO 100 UNIT/1 ML 3ML VIAL SQ SCH ×4 (07:30→21:27)
[2018-08-18] MEDS: PIOGLITAZONE HCL 45 MG TAB PO SCH (09:02)
[2018-08-18] MEDS: LISINOPRIL 2.5 MG TAB PO SCH (09:02)
[2018-08-18] MEDS: PANTOPRAZOLE 40 MG 10ML VIAL IV SCH (09:02)
[2018-08-18] MEDS: AMMONIUM LACTATE 12% LOTION 225GM BTL TOP SCH ×2 (09:02→16:00)
[2018-08-18] MEDS: CEFTRIAXONE SOD 1 GM/NS 50 ML 50 ML IV SCH (15:35)
--- NOTE | 2018-08-18 19:27 | NUR ---
REPORT GIVEN TO ONCOMING NURSE, WALKING ROUNDS DONE. NO ACUTE DISTRESS NOTED. CALL LIGHT WITHIN REACH. BED IN THE LOWEST POSITION.
--- NOTE | 2018-08-18 19:44 | NUR ---
PT IS RESTING IN BED. NO RESPIRATORY DISTRESS NOTED. BED IN THE LOWEST POSITION, LOCKED, AND CALL LIGHT WITHIN REACH. WILL CONTINUE TO MONITOR.
[2018-08-18] MEDS: SIMVASTATIN 20 MG TAB PO SCH (21:23)
[2018-08-19 00:56] VITALS: BP 128/61
[2018-08-19 04:05] LABS: HEMATOCRIT 26.8 % (34.2-44.1); HEMOGLOBIN 9.7 g/dL (12.0-16.0); MEAN CORPUSCULAR HEMOGLOBIN 31.4 pg (28-32); MEAN CORPUSCULAR HGB CONC 36.2 g/dL (31-35); MEAN CORPUSCULAR VOLUME 86.7 fL (81-99); PLATELET COUNT 207 x10e3/uL (140-360); RED BLOOD COUNT 3.09 x10e6/uL (3.6-5.1); RED CELL DISTRIBUTION WIDTH 22.3 % (11.7-14.4)
[2018-08-19 04:25] LABS: ALANINE AMINOTRANSFERASE 38 IU/L (0-55); ALBUMIN 2.8 g/dL (3.5-5.0); ALKALINE PHOSPHATASE 443 IU/L (40-150); ANION GAP 11.7 mmol/L (8-16); BILIRUBIN,DIRECT 9.3 mg/dL (0.0-0.5); BLOOD UREA NITROGEN 7 mg/dL (7-26); BUN/CREATININE RATIO 10 (6-25); CALCIUM 9.3 mg/dL (8.4-10.2); CARBON DIOXIDE 22 mmol/L (22-29); CHLORIDE 103 mmol/L (98-107); CREATININE, SERUM 0.68 mg/dL (0.57-1.11); EST GLOMERULAR FILTRATION RATE > 60 ML/MIN (60-); GLUCOSE 115 mg/dL (74-118); MAGNESIUM 1.5 MG/DL (1.3-2.1); POTASSIUM 3.7 mmol/L (3.5-5.1); SODIUM 133 mmol/L (136-145)
[2018-08-19 06:09] VITALS: BP 146/65
[2018-08-19 06:41] LABS: PLATELET ESTIMATE ADEQUATE
[2018-08-19 06:42] LABS: ANISOCYTOSIS MODERATE; HYPOCHROMASIA MODERATE; MICROCYTOSIS MODERATE; PLATELET MORPHOLOGY COMMENT MODERATE LARGE; RBC MORPHOLOGY COMMENT ABNORMAL
[2018-08-19 08:00] VITALS: BP 124/58
[2018-08-19 08:01] VITALS: BP 124/58
--- NOTE | 2018-08-19 08:15 | NUR ---
Visit made by the Spiritual Care Department Pastoral Visitor, Kaleb Cortez. PV provided pastoral presence, hospitality, communion, and supportive listening. Pastoral Visitor informed pt/family of the scope of [employer] and availability. DOMONIQUE PICHARDO Property Handler Spiritual Care Department O: [phone] Pager: [phone] ([phone] number calling from)
[2018-08-19] MEDS: INSULIN LISPRO 100 UNIT/1 ML 3ML VIAL SQ SCH ×4 (09:19→21:00)
[2018-08-19] MEDS: PIOGLITAZONE HCL 45 MG TAB PO SCH (09:20)
[2018-08-19] MEDS: LISINOPRIL 2.5 MG TAB PO SCH (09:20)
[2018-08-19] MEDS: PANTOPRAZOLE 40 MG 10ML VIAL IV SCH (09:20)
[2018-08-19] MEDS: AMMONIUM LACTATE 12% LOTION 225GM BTL TOP SCH ×2 (09:20→18:16)
[2018-08-19 12:00] VITALS: BP 117/58
--- NOTE | 2018-08-19 16:45 | NUR ---
Received call from Dr. Jim Paz to let me know that biopsy results are negative and for me to call Dr. Montes De Oca and let him know. Paged Dr. Monets De Oca and spoke with him and let him know biopsy results and read MRCP results to him @ [phone]. Dr. Montes De Oca was here to see pt and and family. Dr. Montes De Oca explained procedure to family and patient.
--- NOTE | 2018-08-19 18:00 | NUR ---
After speaking to family pt has agreed to do procedure. Dr. Omer was came back to speak to patient and family.
--- NOTE | 2018-08-19 19:20 | NUR ---
Patient not in room (Rm 299) at this time. Pt visiting as a patient in room 206. Patient appear slightly jaundiced due to elevated bilirubin levels. Family with patient. Patient ambulatory prn. Patient denies any discomfort or pain at this time.
[2018-08-19 20:00] VITALS: BP 132/60
[2018-08-19] MEDS: SIMVASTATIN 20 MG TAB PO SCH (21:03)
[2018-08-20] VITALS: BP 114/53
--- NOTE | 2018-08-20 03:00 | NUR ---
Dr. Jim Paz saw patient during early rounds.
[2018-08-20 04:00] VITALS: BP 143/65
[2018-08-20 04:49] LABS: BASOPHILS % 0.4 % (0.0-1.0); EOSINOPHILS # (AUTO) 0.1 (0.0-0.4); EOSINOPHILS % 1.4 % (0.0-6.0); HEMATOCRIT 25.4 % (34.2-44.1); HEMOGLOBIN 9.3 g/dL (12.0-16.0); LYMPHOCYTES # (AUTO) 1.1 (1.0-3.2); LYMPHOCYTES % 18.6 % (18.0-39.1); MEAN CORPUSCULAR HEMOGLOBIN 31.2 pg (28-32); MEAN CORPUSCULAR HGB CONC 36.6 g/dL (31-35); MEAN CORPUSCULAR VOLUME 85.2 fL (81-99); MONOCYTES # (AUTO) 0.7 (0.2-0.8); MONOCYTES % 11.8 % (4.4-11.3); NEUTROPHILS # (AUTO) 3.8 (2.1-6.9); NEUTROPHILS % 67.3 % (38.7-80.0); PLATELET COUNT 191 x10e3/uL (140-360); RED BLOOD COUNT 2.98 x10e6/uL (3.6-5.1); RED CELL DISTRIBUTION WIDTH 22.4 % (11.7-14.4)
[2018-08-20 05:00] LABS: ANION GAP 10.9 mmol/L (8-16); BLOOD UREA NITROGEN 6 mg/dL (7-26); BUN/CREATININE RATIO 9 (6-25); CALCIUM 9.2 mg/dL (8.4-10.2); CARBON DIOXIDE 24 mmol/L (22-29); CHLORIDE 103 mmol/L (98-107); CREATININE, SERUM 0.64 mg/dL (0.57-1.11); EST GLOMERULAR FILTRATION RATE > 60 ML/MIN (60-); GLUCOSE 111 mg/dL (74-118); MAGNESIUM 1.4 MG/DL (1.3-2.1); POTASSIUM 3.9 mmol/L (3.5-5.1); SODIUM 134 mmol/L (136-145)
[2018-08-20 06:44] LABS: ANISOCYTOSIS SLIGHT; HYPOCHROMASIA SLIGHT; PLATELET ESTIMATE ADEQUATE; PLATELET MORPHOLOGY COMMENT FEW LARGE; RBC MORPHOLOGY COMMENT NORMAL; STOMATOCYTES SLIGHT
[2018-08-20 08:00] VITALS: BP 132/60
[2018-08-20] MEDS: PANTOPRAZOLE 40 MG 10ML VIAL IV SCH (09:07)
[2018-08-20] MEDS: PIOGLITAZONE HCL 45 MG TAB PO SCH (09:07)
[2018-08-20] MEDS: LISINOPRIL 2.5 MG TAB PO SCH (09:07)
[2018-08-20] MEDS: AMMONIUM LACTATE 12% LOTION 225GM BTL TOP SCH ×2 (09:08→17:26)
[2018-08-20] MEDS: INSULIN LISPRO 100 UNIT/1 ML 3ML VIAL SQ SCH ×4 (09:29→20:26)
[2018-08-20 12:00] VITALS: BP 130/60
--- NOTE | 2018-08-20 12:30 | NUR ---
Dr. Omer here to see pt and states that procedure can be done at this hospital. Procedure will probably be done this week per Dr. Omer, waiting for OR to become available.
[2018-08-20 16:00] VITALS: BP 131/59
--- NOTE | 2018-08-20 17:37 | NUR ---
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 Labs and meds reviewed. BG 120 190. Visited pt in the room. Pt tolerated full liquids well. Possible procedure tomorrow. Pt denied any nausea or vomiting. LBM 08/20. No chewing or swallowing difficulty noted. Will cont to monitor. Please consult as needed. (08/13) Chart reviewed. Labs and meds reviewed. 68yo F, who was admitted for generalized rash and jaundice. GI consulted for possible ERCP. 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 Pt denied chewing/swallowing problems and nausea/vomiting. Pt was NPO; clear liquid was later ordered. Will cont to monitor. Please consult as needed. Current Diet: full liquid diet Malnutrition Evaluation (08/20/2018) Energy intake: <75% of estimated energy requirements for >7 days Weight loss: None per chart Fat loss: N/A Muscle loss: N/A Diet Education Needs Assessment: Diet education not indicated. Nutrition Care Level: mod Signed: Christine Marsh, , RD, LD
--- NOTE | 2018-08-20 19:20 | NUR ---
Patient visited in room during nursing rounds. Patient alert and oriented x3 but Welsh speaking only. Family at bedside visiting pt. Pt and pt family aware of possible surgery by Dr. Omer sometime this week and that it will be done here at [facility]. Pt appear jaundiced due to elevated bilirubin levels. No c/o pain or discomfort. Call hyman within reach. Will monitor closely.
[2018-08-20 20:00] VITALS: BP 126/58
[2018-08-20] MEDS: SIMVASTATIN 20 MG TAB PO SCH (20:26)
--- NOTE | 2018-08-20 21:00 | NUR ---
Dr. Bravo on the unit and visited patient. MD aware of patient condition. MD ordered AM labs (08/21/18).
[2018-08-21] VITALS (8 sets, daily range): BP systolic 101–144; BP diastolic 54–65
[2018-08-21 06:07] LABS: BASOPHILS % 0.3 % (0.0-1.0); EOSINOPHILS # (AUTO) 0.1 (0.0-0.4); HEMATOCRIT 27.7 % (34.2-44.1); HEMOGLOBIN 10.1 g/dL (12.0-16.0); LYMPHOCYTES # (AUTO) 1.2 (1.0-3.2); LYMPHOCYTES % 20.1 % (18.0-39.1); MEAN CORPUSCULAR HEMOGLOBIN 31.3 pg (28-32); MEAN CORPUSCULAR HGB CONC 36.5 g/dL (31-35); MEAN CORPUSCULAR VOLUME 85.8 fL (81-99); MONOCYTES # (AUTO) 0.7 (0.2-0.8); MONOCYTES % 11.8 % (4.4-11.3); NEUTROPHILS # (AUTO) 3.9 (2.1-6.9); NEUTROPHILS % 66.3 % (38.7-80.0); PLATELET COUNT 204 x10e3/uL (140-360); RED BLOOD COUNT 3.23 x10e6/uL (3.6-5.1); RED CELL DISTRIBUTION WIDTH 22.7 % (11.7-14.4)
[2018-08-21 06:25] LABS: ALANINE AMINOTRANSFERASE 39 IU/L (0-55); ALBUMIN 2.9 g/dL (3.5-5.0); ALKALINE PHOSPHATASE 483 IU/L (40-150); BILIRUBIN,DIRECT 9.8 mg/dL (0.0-0.5); BLOOD UREA NITROGEN 7 mg/dL (7-26); BUN/CREATININE RATIO 10 (6-25); CALCIUM 9.7 mg/dL (8.4-10.2); CARBON DIOXIDE 25 mmol/L (22-29); CHLORIDE 100 mmol/L (98-107); EST GLOMERULAR FILTRATION RATE > 60 ML/MIN (60-); GLUCOSE 116 mg/dL (74-118); SODIUM 133 mmol/L (136-145)
--- NOTE | 2018-08-21 07:08 | NUR ---
RECEIVED PATIENT SITTING UP IN CHAIR. NO ACUTE DISTRESS NOTED. DENIES PAIN OR DISCOMFORT. CALL LIGHT WITHIN REACH. BED IN THE LOWEST POSITION.
[2018-08-21] MEDS: INSULIN LISPRO 100 UNIT/1 ML 3ML VIAL SQ SCH ×4 (07:30→22:05)
[2018-08-21 08:08] LABS: ANISOCYTOSIS MODERATE; HYPOCHROMASIA MODERATE; RBC MORPHOLOGY COMMENT ABNORMAL; TARGET CELLS FEW
[2018-08-21 08:09] LABS: PLATELET ESTIMATE ADEQUATE; PLATELET MORPHOLOGY COMMENT NORMAL; STOMATOCYTES SLIGHT
[2018-08-21] MEDS: PIOGLITAZONE HCL 45 MG TAB PO SCH (09:00)
[2018-08-21] MEDS: LISINOPRIL 2.5 MG TAB PO SCH (09:00)
[2018-08-21] MEDS: AMMONIUM LACTATE 12% LOTION 225GM BTL TOP SCH ×2 (09:00→16:32)
[2018-08-21] MEDS: PANTOPRAZOLE 40 MG 10ML VIAL IV SCH (09:00)
--- NOTE | 2018-08-21 14:47 | NUR ---
PER DR. MCKOY PATIENT IS HAVING SX TOMORROW MORNING, SHE IS TO RECEIVED FFP TONIGHT, WILL NOTIFY NIGHT NURSE.
[2018-08-21] MEDS ORDERED: HEPARIN SOD/SOD CHLORIDE 1,000 ML ONE (15:51)
[2018-08-21] MEDS ORDERED: SODIUM CHLORIDE 0.9% 250ML 250 ML IV ONE (16:30)
--- NOTE | 2018-08-21 19:23 | NUR ---
REPORT GIVEN TO ONCOMING NURSE, WALKING ROUNDS COMPLETED. PATIENT IS RESTING IN BED. NO ACUTE DISTRESS NOTED. FAMILY AT BEDSIDE. CALL LIGHT WITHIN REACH. BED IN THE LOWEST POSITION.
[2018-08-21] MEDS: SIMVASTATIN 20 MG TAB PO SCH (22:03)
--- NOTE | 2018-08-21 23:20 | NUR ---
STONER OUT LINE USE FOR CONSENT FOR BLOOD PRODUCT. STONER OUT NUMBER [id number]. WILL CONTINUE TO MONITOR.
[2018-08-21] MEDS ORDERED: SODIUM CHLORIDE 0.9% 250ML 250 ML ONE (23:56)
[2018-08-22] VITALS (10 sets, daily range): BP systolic 106–136; BP diastolic 49–61
[2018-08-22] MEDS ORDERED: SODIUM CHLORIDE 0.9% 250ML 250 ML ONE (01:57)
[2018-08-22] MEDS ORDERED: HEPARIN SOD (PORCINE) 5,000 UNIT/ML VIAL SC ONE (06:00)
[2018-08-22 06:33] LABS: BASOPHILS % 0.2 % (0.0-1.0); EOSINOPHILS % 0.5 % (0.0-6.0); HEMATOCRIT 26.1 % (34.2-44.1); HEMOGLOBIN 9.4 g/dL (12.0-16.0); LYMPHOCYTES # (AUTO) 0.8 (1.0-3.2); LYMPHOCYTES % 14.9 % (18.0-39.1); MEAN CORPUSCULAR HEMOGLOBIN 30.9 pg (28-32); MEAN CORPUSCULAR VOLUME 85.9 fL (81-99); MONOCYTES # (AUTO) 0.6 (0.2-0.8); MONOCYTES % 11.3 % (4.4-11.3); NEUTROPHILS % 72.7 % (38.7-80.0); PLATELET COUNT 192 x10e3/uL (140-360); RED BLOOD COUNT 3.04 x10e6/uL (3.6-5.1); RED CELL DISTRIBUTION WIDTH 22.9 % (11.7-14.4)
[2018-08-22 06:43] LABS: INR 1.18
--- NOTE | 2018-08-22 06:50 | NUR ---
REPORT RECEIVED FROM NIGHT NURSE. PATIENT OFF THE UNIT AND IS IN THE OR FOR PROCEDURE TODAY.
[2018-08-22 06:51] LABS: ANION GAP 13.9 mmol/L (8-16); BLOOD UREA NITROGEN 6 mg/dL (7-26); BUN/CREATININE RATIO 9 (6-25); CALCIUM 9.7 mg/dL (8.4-10.2); CARBON DIOXIDE 23 mmol/L (22-29); CHLORIDE 101 mmol/L (98-107); CREATININE, SERUM 0.69 mg/dL (0.57-1.11); EST GLOMERULAR FILTRATION RATE > 60 ML/MIN (60-); GLUCOSE 138 mg/dL (74-118); POTASSIUM 3.9 mmol/L (3.5-5.1); SODIUM 134 mmol/L (136-145)
[2018-08-22] MEDS: INSULIN LISPRO 100 UNIT/1 ML 3ML VIAL SQ SCH ×4 (07:30→21:00)
[2018-08-22] MEDS: AMMONIUM LACTATE 12% LOTION 225GM BTL TOP SCH ×2 (09:00→17:00)
[2018-08-22] MEDS ORDERED: VECURONIUM BROMIDE FOR INJ 20 MG VIAL ONE (09:07)
[2018-08-22 11:11] LABS: HEMATOCRIT 23.9 % (34.2-44.1); HEMOGLOBIN 8.6 g/dL (12.0-16.0)
[2018-08-22] MEDS ORDERED: CEFOXITIN SOD 1 GM VIAL ONE ×2 (13:59→17:44)
[2018-08-22 14:23] LABS: HEMATOCRIT 27.4 % (34.2-44.1); HEMOGLOBIN 9.8 g/dL (12.0-16.0)
[2018-08-22] MEDS ORDERED: MUPIROCIN 2% OINT 22 GM TUBE ONE (14:51)
--- NOTE | 2018-08-22 15:55 | Diagnostic Imaging Report ---
Examination: Single AP view of the chest. COMPARISON: Chest radiograph 08/12/2018. INDICATION: Status post central line placement. DISCUSSION: Limited study secondary to patient rotation and portable technique. Lines/tubes: Interval placement of right IJ central line with tip in the expected position of the cavoatrial junction. Interval placement of enteric tube which terminates in the expected location of the stomach, with the side port below the GE junction. Lungs: Interval development of perihilar and interstitial opacities as well as patchy opacities in the bilateral upper lungs. Pleura: There is no pleural effusion or pneumothorax. Heart and mediastinum: Apparent mild widening of the left upper mediastinum likely reflects patient rotation and vascular congestion. There is mild cardiomegaly. Atherosclerotic calcifications of the aortic arch. Bones and soft tissues: No acute osseous abnormality. Upper abdomen: There are surgical dee overlying the upper abdomen. There is an upper abdominal drain which terminates in the left upper quadrant. IMPRESSION: Interval placement of right IJ central line which terminates at the cavoatrial junction. No evidence of pneumothorax. Interval development of perihilar / interstitial opacities with patchy upper lung opacities, which could represent pulmonary edema or pneumonia in the appropriate clinical setting. Follow chest radiograph is recommended. Signed by: Dr. Serge Virk MD on 08/22/2018 3:51 PM
[2018-08-22] MEDS: MORPHINE SULFATE INJ 4 MG/ML INJ 1ML IV PRN ×2 (16:25→22:40)
[2018-08-22] MEDS ORDERED: CEFOXITIN 2GM/ D5W 50ML 50 ML IV SCH (16:30)
[2018-08-22] MEDS: LACTATED RINGER'S 1,000 ML IV SCH ×2 (16:48→23:28)
--- NOTE | 2018-08-22 17:00 | NUR ---
PATIENT WITH LOW TEMP 93 ORAL. APPLIED ABIMAEL HACKETT
[2018-08-22] MEDS: PANTOPRAZOLE 40 MG 10ML VIAL IV SCH (17:30)
[2018-08-22] MEDS ORDERED: LIDOCAINE HCL 2% LOCAL INJ 5 ML SDV VIAL INJ ONE (17:44)
[2018-08-22] MEDS ORDERED: NEOSTIGMINE 5 MG/5ML SYR ONE (17:44)
[2018-08-22] MEDS ORDERED: GLYCOPYRROLATE INJ 1MG/ 5 ML SYR ONE (17:44)
[2018-08-22] MEDS ORDERED: PHENYLEPHRINE HCL 1% 10 MG/ML VIAL ONE (17:44)
[2018-08-22] MEDS ORDERED: EPHEDRINE SULFATE INJ 50 MG/10 ML SYR ONE (17:44)
[2018-08-22] MEDS ORDERED: ROCURONIUM BROMIDE 10 MG/ML 5ML VIAL ONE (17:44)
[2018-08-22] MEDS ORDERED: SEVOFLURANE INHAL SOLN 250 ML PEN BTL ONE (17:44)
[2018-08-22] MEDS ORDERED: ONDANSETRON HCL INJ 2MG/ML 2ML 2 MG/ML VIAL ONE (17:44)
[2018-08-22] MEDS ORDERED: PROPOFOL IV EMULSION 10 MG/ML 20 ML VIAL ONE (17:44)
[2018-08-22] MEDS ORDERED: KETAMINE HCL INJ 50 MG/ML 10 ML VIAL ONE (17:54)
[2018-08-22] MEDS ORDERED: MIDAZOLAM HCL 2 MG/2 ML VIAL ONE (17:54)
[2018-08-22] MEDS ORDERED: FENTANYL CITRATE/PF 100MCG/2 ML INJ ONE (17:54)
--- NOTE | 2018-08-22 19:30 | NUR ---
Received patient hemodynamically stable, on a Ángel hugger temp of 95.5. NGT on LCS, minimal output. ARMANDO drain active complains of pain a score of 5, pain medicine already administered. Reassured
--- NOTE | 2018-08-22 21:00 | NUR ---
Temp improved to 97.3, taken off the Ángel hugger, for close monitoring. Patient remains lethargic.
[2018-08-22] MEDS: ONDANSETRON HCL INJ 2MG/ML 2ML 2 MG/ML VIAL IV PRN (21:30)
--- NOTE | 2018-08-22 23:00 | NUR ---
Temp remains stable off the Ángel hugger, 98,3, Patient given morphine for pain and reassured. Vitals remain stable
[2018-08-22] MEDS: ENOXAPARIN SOD INJ 40 MG/0.4 ML SYR SC SCH (23:29)
[2018-08-23] VITALS (27 sets, daily range): BP systolic 78–128; BP diastolic 26–61
[2018-08-23 04:47] LABS: BASOPHILS % 0.1 % (0.0-1.0); HEMOGLOBIN 8.9 g/dL (12.0-16.0); LYMPHOCYTES # (AUTO) 0.5 (1.0-3.2); LYMPHOCYTES % 3.9 % (18.0-39.1); MEAN CORPUSCULAR HEMOGLOBIN 30.9 pg (28-32); MEAN CORPUSCULAR HGB CONC 35.6 g/dL (31-35); MEAN CORPUSCULAR VOLUME 86.8 fL (81-99); MONOCYTES # (AUTO) 0.6 (0.2-0.8); MONOCYTES % 4.3 % (4.4-11.3); NEUTROPHILS % 91.3 % (38.7-80.0); PLATELET COUNT 199 x10e3/uL (140-360); RED BLOOD COUNT 2.88 x10e6/uL (3.6-5.1); RED CELL DISTRIBUTION WIDTH 21.6 % (11.7-14.4)
[2018-08-23 06:04] LABS: ALANINE AMINOTRANSFERASE 40 IU/L (0-55); ALBUMIN 2.3 g/dL (3.5-5.0); ALKALINE PHOSPHATASE 335 IU/L (40-150); ANION GAP 11.2 mmol/L (8-16); BLOOD UREA NITROGEN 12 mg/dL (7-26); BUN/CREATININE RATIO 14 (6-25); CALCIUM 8.1 mg/dL (8.4-10.2); CARBON DIOXIDE 22 mmol/L (22-29); CHLORIDE 106 mmol/L (98-107); CREATININE, SERUM 0.88 mg/dL (0.57-1.11); EST GLOMERULAR FILTRATION RATE > 60 ML/MIN (60-); GLUCOSE 190 mg/dL (74-118); MAGNESIUM 1.4 MG/DL (1.3-2.1); PHOSPHORUS 4.8 MG/DL (2.3-4.7); POTASSIUM 4.2 mmol/L (3.5-5.1); SODIUM 135 mmol/L (136-145)
[2018-08-23 06:28] LABS: CALCIUM IONIZED 1.1 mmol/L (1.09-1.30)
[2018-08-23] MEDS: MORPHINE SULFATE INJ 4 MG/ML INJ 1ML IV PRN ×2 (06:30→18:50)
--- NOTE | 2018-08-23 06:30 | NUR ---
Patient repositioned given a CHG wipe and pain medicine. Calm no complaints raised
--- NOTE | 2018-08-23 07:06 | NUR ---
Handed over stable
[2018-08-23 07:26] LABS: BAND NEUTROPHILS % (MANUAL) 2 %; LYMPHOCYTES % (MANUAL) 5 % (19-48); MONOCYTES % (MANUAL) 1 % (3.4-9.0); NEUTROPHILS % (MANUAL) 92 % (40-74)
[2018-08-23 07:28] LABS: PLATELET ESTIMATE ADEQUATE; PLATELET MORPHOLOGY COMMENT NORMAL; RBC MORPHOLOGY COMMENT ABNORMAL
[2018-08-23] MEDS: INSULIN LISPRO 100 UNIT/1 ML 3ML VIAL SQ SCH ×4 (07:30→21:52)
[2018-08-23 07:31] LABS: TARGET CELLS MANY
[2018-08-23 07:32] LABS: STOMATOCYTES SLIGHT
[2018-08-23 07:33] LABS: ANISOCYTOSIS MODERATE
[2018-08-23] MEDS: CEFOXITIN 2GM/ D5W 50ML 50 ML IV SCH ×3 (07:45→16:00)
--- NOTE | 2018-08-23 08:30 | NUR ---
Dr Omer to bedside.
[2018-08-23] MEDS: AMMONIUM LACTATE 12% LOTION 225GM BTL TOP SCH ×2 (09:06→18:59)
[2018-08-23] MEDS: LACTATED RINGER'S 1,000 ML IV SCH (09:06)
[2018-08-23] MEDS: PANTOPRAZOLE 40 MG 10ML VIAL IV SCH (09:06)
[2018-08-23] MEDS ORDERED: SODIUM CHLORIDE 0.9% 1000ML 1,000 ML ONE (09:55)
[2018-08-23] MEDS ORDERED: SODIUM CHLORIDE 0.9% 1000ML 1,000 ML IV ONE (10:00)
[2018-08-23] MEDS ORDERED: CENTRAL TPN FORMULA 1 BAG IV SCH ×2 (11:45→20:00)
[2018-08-23 14:00] LABS: BILIRUBIN,DIRECT 7.6 mg/dL (0.0-0.5); TRIGLYCERIDES 137 MG/DL (0-149)
[2018-08-23] MEDS ORDERED: SODIUM CHLORIDE 0.9% 1000ML 1,000 ML IV SCH (14:15)
--- NOTE | 2018-08-23 15:00 | NUR ---
Nutrition Intervention Note RD Recommendation(s) for Physician: -Current standard PN (30% dextrose, 10% AA) order at 57mL/hr with daily 25g lipids, providing 1200kcal, 69g protein, and 1368mL fluids. meet 100% of est calorie need and 83% of est protein need -Rec to increase AA to 15% to more adequately meet her protein needs -Check BMP, Phos, Mag daily; Prealbumin, LFT and TG levels weekly -Continue with TPN per MD until diet is advanced and intake is >50%. Plan of Care: RD following, monitoring for tolerance and adequacy, TPN Nutrition reason for involvement: Follow up RD Assessment (08/23) Pt was discussed during AM rounds. Pt remained severely jaundice. 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 Pt hasnt pass gas since surgery. Pt has been NPO/clear liquid/full liquid x 10days. PN was scheduled to start TPN this evening; order has been placed. Will continue to monitor and follow. (08/20) Chart reviewed. Labs and meds reviewed. BG 120 190. Visited pt in the room. Pt tolerated full liquids well. Possible procedure tomorrow. Pt denied any nausea or vomiting. LBM 08/20. No chewing or swallowing difficulty noted. Will cont to monitor. Please consult as needed. (08/13) Chart reviewed. Labs and meds reviewed. 68yo F, who was admitted for generalized rash and jaundice. GI consulted for possible ERCP. Visited pt in room who denied significant wt loss, denied decrease in appetite [employer]IC[employer]ICER. Pt denied chewing/swallowing problems and nausea/vomiting. Pt was NPO; clear liquid was later ordered. Will cont to monitor. Please consult as needed. 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 Will re-evaluate at follow-up as appropriate. Energy intake: <75% of estimated energy requirements for >7 days Weight loss: Unable to evaluate since weights have been inconsistent Fat loss: N/A Muscle loss: N/A Supporting Evidence: Fluid accumulation: unable to evaluate Functional Status: no changes Nutrition Prescription (Diet Order): NPO Estimated Nutritional Needs: Calories: 1210 1375kcal(22-25kcal/kg/d) Weight used: IBW Protein: 83 138g (1.5-2.5g/kg/d) Weight used: IBW Diet Adequacy: Not meeting calorie needs, Not meeting protein needs Diet Education Needs Assessment: Diet education indicated, but patient not appropriate for education at this time. Nutrition Care Level: high Nutrition Diagnosis: Inadequate oral intake related to acute illness as evidenced by pt requiring PN as main source of nutrition. Goal: Patient will meet 75-100% of estimated needs by follow up Progress: N/A Interventions: Composition, Rate, Route Monitoring/Evaluation: Total energy intake, Total protein intake, Formula/Solution, Weight change Signed: Christine Marsh, MS, RD, LD
[2018-08-23] MEDS: VASOPRESSIN 100 UNIT in DEXTROSE 5% 100ML 100 ML IV SCH (15:15)
[2018-08-23] MEDS ORDERED: SODIUM CHLORIDE 0.9% 250ML 250 ML IV ONE (16:00)
--- NOTE | 2018-08-23 16:43 | NUR ---
1st unit PRBCs infusing after receiving orders from Dr Omer for 2 FFP and 2 PRBCs. Language line utilized to update patient and family on condition and interventions. Dr Lang informed of consult and orders rec'd.
--- NOTE | 2018-08-23 17:04 | Operative Report ---
DATE OF PROCEDURE: 08/22/2018 SURGEON: Robert Omer MD PREOPERATIVE DIAGNOSIS: Ampullary tumor. POSTOPERATIVE DIAGNOSIS: Ampullary tumor. OPERATIVE PROCEDURE: Pancreaticoduodenectomy. MEASUREMENT TECHNICIAN: None. ANESTHESIA: General endotracheal, Dr. Maldonado. INDICATIONS: A 68-year-old female, presented with abdominal pain and jaundice and was found to have ampullary lesions both during ERCP and on CT scan of abdomen. The patient has consented for the surgical procedure of pancreaticoduodenectomy with all attendant risks discussed. 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 DESCRIPTION OF PROCEDURE: The patient was brought to the OR, intubated. Abdomen was prepped with alcohol and draped in a sterile fashion. Bilateral subcostal chevron incision was made extending to the fascia and the rectus muscles were bilaterally divided entering the peritoneal cavity. The liver was noted to be mildly cirrhotic and no palpable mets noted. The celiac regions showed no enlarged nodes. The roots of the mesentery were also free. We then approached the ciara hepatis area and the gallbladder had been removed from prior surgery. Adhesions were taken down with cautery. Dilated bile duct was noted overlying bile duct was clear. We proceeded to dissect out the gastroduodenal artery, which was then doubly ligated with 2-0 stitch tie and divided. The duodenum was kocherized bilaterally for palpation of the head of the pancreas. Since the tumor seemed to be resectable, we will proceed with mobilizations of the distal stomach and using a LASHAUN stapler, the antrum was divided just proximal to the pylorus. Following the middle colic vein, the inferior border of the pancreas was exposed and a tunnel created beneath the neck of the pancreas without difficulty, lifting it off the portal vein and superior mesenteric vein with a Janett vein. The bile duct was then divided at this point just above the first portion of the duodenum with the distal bile duct ligated with 2-0 silk ties and the proximal end controlled with the large clips and bile duct divided. The ligament of Treitz was taken down and the proximal jejunum was divided with a LASHAUN stapler approximately 10 cm distal to the ligament of Treitz and the mesentery to this portion was taken down with the LigaSure instrument and the proximal jejunum was then passed behind the superior mesenteric vessels to the right side of it. The neck of the pancreas was then divided with knife with proximal end on the side of the head of pancreas controlled with TL30 stapler. Bleeding from the posterior aspect of the pancreatic stump, we controlled with [id number] stitch of 3-0 Vicryl. At all times, the pancreatic duct opening controlled with a pediatric 8-[place] Islander catheter. We then proceeded to remove the uncinate process of the pancreas, which was noted to be large and fibrotic and this was controlled with a combination of 2-0 silk stitch tie and finally the TL60 stapler was used to remove the uncinate process after it was mobilized flush to the portal vein. Specimens were removed and submitted to pathology, which confirmed clear margin at the pancreatic neck. Hemostasis was achieved. We then proceeded to reconstitute the digestive tract. The jejunum was then brought to the right side of the transverse colon mesentery and a biliary-jejunostomy anastomosis was created first with interrupted 4-0 Vicryl stitches. Approximately 10 cm to the staple line, which will be the area of the gastrojejunostomy. Next, the jejunum was divided with LASHAUN stapler approximately 40 to 50 cm to the biliary-jejunostomy anastomosis and the efferent loop was then brought to the left side of the middle colic vessel of the transverse mesocolon to position for the pancreaticojejunostomy, which was carried out in two layers with 3-0 silk stitch for the pancreatic parenchyma and seromuscular wall of jejunum in an end-to-side fashion according to the Geoffreyumgart technique. Duct mucosal anastomosis was carried out with interrupted 4-0 Vicryl stitch with the pediatric indwelling tube in place to ensure patency. After the stitches were placed, the stent was removed. Additional stiches placed to complete the layers between the pancreatic capsule and seromuscular of the jejunum. We then performed the gastrojejunostomy next between the distal stomach to the jejunum at the staple ends 10 cm proximal to the biliary-jejunostomy anastomosis. This was carried out in 2 layers with external seromuscular stitch of 3-0 silk and running interlocking inner layers of 3-0 Vicryl. The last anastomosis was jejunojejunostomy between the afferent loop coming off the biliary-jejunostomy anastomosis to the jejunal loops 40 cm from the pancreaticojejunostomy anastomosis. This was established with LASHAUN stapler and TL60 instrument. A mesenteric defect to this anastomosis was closed with running 3-0 silk stitch. Operative field was irrigated with copious saline solution. Hemostasis was achieved. A 19-[place] Islander Morgan drain placed in the Rizo pouch area adjacent to the separate anastomosis and taken out through separate stab wound incision in the right upper quadrant. We then closed the abdomen by approximating the peritoneum with running 0 Vicryl, the anterior fascia was closed with running 0 PDS, skin was closed with dee. The patient was then extubated and transported to ICU in guarded condition. ESTIMATED BLOOD LOSS: 800 mL. Robert Omer MD DNSandra/MODL /[id number]
[2018-08-23] MEDS: ENOXAPARIN SOD INJ 40 MG/0.4 ML SYR SC SCH (18:59)
[2018-08-23 19:07] LABS: ALBUMIN 2.2 g/dL (3.5-5.0); ALBUMIN/GLOBULIN RATIO 0.7 (0.8-2.0); ANION GAP 13.7 mmol/L (8-16); CALCIUM 8.1 mg/dL (8.4-10.2); CREATININE, SERUM 1.67 mg/dL (0.57-1.11); POTASSIUM 4.7 mmol/L (3.5-5.1)
[2018-08-23 23:31] LABS: HEMOGLOBIN 8.7 g/dL (12.0-16.0)
[2018-08-23 23:36] LABS: INR 1.44; PROTHROMBIN TIME 18.1 seconds (11.9-14.5)
[2018-08-24] VITALS (29 sets, daily range): BP systolic 74–128; BP diastolic 33–56
[2018-08-24] MEDS ORDERED: SODIUM CHLORIDE 0.9% 250ML 250 ML IV ONE ×4 (00:15→20:00)
--- NOTE | 2018-08-24 00:50 | NUR ---
2245 08/23/18 blood lab results given to Dr. Alexandre Omer whom ordered 1prbc to give now, hold 1prbc. give 2nd unit if hr remains >100bpm. Give 1 jumbo ffp as well. I called blood bank, tech stated 1prbc ready at this time and can pick unit up now. When I retrieved blood from blood bank, blood not ready and need to order unit to give. Blood bank will call unit when available to be administered.
[2018-08-24] MEDS: CEFOXITIN 2GM/ D5W 50ML 50 ML IV SCH ×3 (01:01→16:32)
[2018-08-24] MEDS: INSULIN LISPRO 100 UNIT/1 ML 3ML VIAL SQ SCH ×4 (01:45→17:12)
[2018-08-24 04:25] LABS: BASOPHILS % 0.2 % (0.0-1.0); HEMATOCRIT 23.2 % (34.2-44.1); HEMOGLOBIN 7.9 g/dL (12.0-16.0); LYMPHOCYTES # (AUTO) 0.8 (1.0-3.2); LYMPHOCYTES % 5.9 % (18.0-39.1); MEAN CORPUSCULAR HEMOGLOBIN 30.3 pg (28-32); MEAN CORPUSCULAR HGB CONC 34.1 g/dL (31-35); MEAN CORPUSCULAR VOLUME 88.9 fL (81-99); MONOCYTES # (AUTO) 0.9 (0.2-0.8); MONOCYTES % 6.8 % (4.4-11.3); NEUTROPHILS # (AUTO) 11.2 (2.1-6.9); NEUTROPHILS % 86.4 % (38.7-80.0); PLATELET COUNT 150 x10e3/uL (140-360); RED BLOOD COUNT 2.61 x10e6/uL (3.6-5.1); RED CELL DISTRIBUTION WIDTH 19.9 % (11.7-14.4)
[2018-08-24 04:45] LABS: ANION GAP 11.4 mmol/L (8-16); CALCIUM 7.7 mg/dL (8.4-10.2); CREATININE, SERUM 2.23 mg/dL (0.57-1.11); POTASSIUM 4.4 mmol/L (3.5-5.1)
[2018-08-24] MEDS ORDERED: FUROSEMIDE INJ 10 MG/ML 2 ML VIAL IV ONE (04:45)
--- NOTE | 2018-08-24 05:25 | NUR ---
I called lab and spoke with Christina at [phone]. blood not ready at this time and should be ready soon. lab to call ICU when ready for fruit or nut picker. updated family with delay and blood will be ready soon.
--- NOTE | 2018-08-24 05:26 | NUR ---
nursing supervisor gas meter repair updated earlier of blood status.
--- NOTE | 2018-08-24 06:39 | NUR ---
notified Dr. Omer of blood status and am labs and vital signs and output. waiting for blood to be ready from lab
[2018-08-24 07:25] LABS: MAGNESIUM 1.7 MG/DL (1.3-2.1)
[2018-08-24] MEDS: AMMONIUM LACTATE 12% LOTION 225GM BTL TOP SCH ×2 (09:39→16:48)
[2018-08-24] MEDS: PANTOPRAZOLE 40 MG 10ML VIAL IV SCH (09:39)
[2018-08-24] MEDS ORDERED: LORAZEPAM INJ 2 MG/ML VIAL IV PRN ×2 (10:30)
[2018-08-24] MEDS ORDERED: PHYTONADIONE 10 MG/ML AMP SQ ONE (11:15)
[2018-08-24] MEDS: VASOPRESSIN 100 UNIT in DEXTROSE 5% 100ML 100 ML IV SCH (15:15)
[2018-08-24] MEDS ORDERED: ROCURONIUM BROMIDE 10 MG/ML 5ML VIAL ONE (15:19)
[2018-08-24] MEDS ORDERED: CEFAZOLIN SOD 1 GM VIAL ONE (15:19)
[2018-08-24] MEDS ORDERED: LIDOCAINE HCL 2% LOCAL INJ 5 ML SDV VIAL INJ ONE (15:19)
[2018-08-24] MEDS ORDERED: SEVOFLURANE INHAL SOLN 250 ML PEN BTL ONE (15:19)
[2018-08-24] MEDS ORDERED: LIDOCAINE HCL 2% JELLY 5 ML TUBE ONE (15:19)
[2018-08-24] MEDS ORDERED: ETOMIDATE 2 MG/ML 10 ML INJ IV ONE (15:19)
--- NOTE | 2018-08-24 16:33 | Consultation ---
DATE OF CONSULTATION: 08/24/2018 Nephrology Consultation Note REASON FOR CONSULTATION: Acute kidney injury, oliguric. HISTORY OF PRESENT ILLNESS: The patient is a 68-year-old female, who was in good health until approximately 3 months ago, when she experienced increasing pruritus and itching. At that time, she denies any abdominal pain or any vomiting, diarrhea, fevers, or chills. Imaging studies were consistent with hematuria with an extrahepatic biliary dilatation . ERCP showed ulceration and friable lesion in the ampulla region occluding access in the common bile duct according to the reports. The patient underwent a pancreaticoduodenectomy performed on 08/22/2018 by General Surgery, Dr. Omer. Nephrology was consulted due to underlying acute kidney injury and worsening urine output. Currently, the patient's urine output is about 345 mL over the last 24 hours. Total output shows 1030 some blood in the ARMANDO drain. Creatinine shows to be 2.3, with prior creatinines showing consistent to be normal on admission. The patient was hypotensive and required some blood products yesterday, likely leading to the etiology of her acute kidney injury. Currently, her urine output is good and very dark in color. The patient is seen and evaluated at bedside in the ICU. Currently, she is stable. Blood pressure 116/51. She was doing well and I talked to the daughter at bedside. . She was found to have jaundice. REVIEW OF SYSTEMS: Pertinent negatives: No reports of any chest pain, palpitation, nausea, vomiting, diarrhea, dysuria, hematuria, frequency, urgency, lightheadedness, dizziness, abdominal pain, headaches, shortness of breath, cough, congestion, fever, or any other complaints. The rest of the 14-point review of systems are reviewed with the patient and are negative. ALLERGIES: NO KNOWN DRUG ALLERGIES. HOME MEDICATIONS: She takes 20 mg a day, metformin 1000 mg p.o. b.i.d., lisinopril 2.5 mg daily, pioglitazone 45 mg daily. PAST MEDICAL HISTORY: Hypertension, hyperlipidemia, ampullary lesions. PAST SURGICAL HISTORY: Recent pancreaticoduodenectomy. FAMILY HISTORY: Diabetes. SOCIAL HISTORY: good social support. PHYSICAL EXAMINATION: VITAL SIGNS: Temperature is 99.5, pulse 96, respiratory rate , blood pressure systolic is 122/51 on the arterial line. She is 99% on 2 L nasal cannula. GENERAL: Not in acute distress. Alert and oriented x3. Cooperative on examination. HEENT: Head is normocephalic, atraumatic. Eyes, pupils equal and reactive to light bilaterally. Extraocular movements are intact bilaterally. NECK: Supple. Good range of motion throughout. No evidence of erythema or exudates in the posterior pharynx. Has poor dentition. PULMONARY: Clear to auscultation bilaterally. No wheezing, rales, or rhonchi. No crackles appreciated. CARDIOVASCULAR: Positive S1 and S2. No murmur or gallop appreciated. ABDOMEN: Soft, nondistended, and nontender to palpation. Bowel sounds present. MUSCULOSKELETAL: Strength is 5/5 throughout . NEUROLOGIC: Cranial nerves II through XII grossly intact. . PSYCHIATRIC: Normal affect and mood. EXTREMITIES: No edema. Good range of motion throughout. LABORATORY DATA: Lab findings show a white count of 12.9, hemoglobin 7.9, hematocrit is 23, platelets of 150. Coagulation; PT 18, INR 1.44, PTT 35.9. Chemistry; sodium 135, potassium 4.4, chloride 103, bicarb 22, anion gap 11.4, BUN 34, creatinine is 2.2, glucose is 330. A1c 6.9. Magnesium is 1.7, phosphorus is 4.8. CA-19-9 was found to be elevated. UA none. Microbiology and urine cultures were negative. IMAGING STUDIES: Chest x-ray on 08/22/2018 showed some evidence of interstitial opacity and upper lung opacities, concerning for underlying pulmonary edema, possible pneumonia. IMPRESSION: 1. Acute kidney injury, likely secondary to hypotension leading to likely acute tubular necrosis. 2. Oliguric. 3. Status post pancreatoduodenectomy. 4. Hypotension, now resolved. PLAN: At this time, from a renal standpoint, her kidney function in the past was normal. This was all acute in nature. It seems like it started rising yesterday . Yesterday, the patient had significant amount of blood loss from her ARMANDO drain and was found to be hypotensive. underlying etiology of the rise in creatinine is from hypotension. creatinine now is 2.23. At this time, there is no indication for and rest of the electrolytes are stable and her labs are stable as well. Her urine output is good. We are going to match TPN with fluids up to 100 mL/h, but she is currently getting significant amount of blood products due to a low hemoglobin level. So at this time, we are just going to wait for the blood products to be completed and monitor urine output closely. Once she is better and she has significant edema, I will consider giving her some diuretics later today. I will go ahead and get a repeat chemistry later this afternoon at 1700 hours. I will go ahead and order some urine electrolytes, urine sodium, urine chloride, urine creatinine as well. They did not do renal ultrasounds here on the weekend, so we will defer that hopefully on Sunday. She is otherwise stable from a renal standpoint, but we will have to monitor very closely. MD JOCELYN Finley/MITCHL /[id number]
[2018-08-24 17:32] LABS: HEMATOCRIT 22.7 % (34.2-44.1); HEMOGLOBIN 7.8 g/dL (12.0-16.0)
[2018-08-24 17:33] LABS: INR 0.91; PROTHROMBIN TIME 12.7 seconds (11.9-14.5)
[2018-08-24 17:37] LABS: CALCIUM 8.3 mg/dL (8.4-10.2); CREATININE, SERUM 1.65 mg/dL (0.57-1.11)
[2018-08-24] MEDS ORDERED: FENTANYL CITRATE/PF 100MCG/2 ML INJ ONE (18:18)
[2018-08-24] MEDS ORDERED: MORPHINE SULFATE INJ 10 MG/ML ONE (18:18)
--- NOTE | 2018-08-24 19:00 | NUR ---
Rec'd pt lethargic, resp rate even and unlabored, VSS. pt has ARMANDO draining excessive amount of sanguineous drainage. called nuclear Med for ETA of staff for VQ scan, waiting on follow up call. will continue to monitor
--- NOTE | 2018-08-24 19:02 | NUR ---
Rec'd order per Dr. Omer to infuse 1 unit PRBCs.
--- NOTE | 2018-08-24 19:18 | NUR ---
started infusing PRBCs
[2018-08-24] MEDS ORDERED: HEPARIN SOD/SOD CHLORIDE 1,000 ML ONE (20:28)
[2018-08-24] MEDS: CENTRAL TPN FORMULA 1 BAG IV SCH (20:53)
[2018-08-24] MEDS: INSULIN GLARGINE 100 UNITS/ML VIAL SQ SCH (21:00)
--- NOTE | 2018-08-24 21:02 | NUR ---
pt departed ICU to OR with OR nursing staff, Anesthesiologist and Surgeon Dr. Omer
[2018-08-25] VITALS (27 sets, daily range): BP systolic 91–141; BP diastolic 43–71
[2018-08-25] MEDS: CEFOXITIN 2GM/ D5W 50ML 50 ML IV SCH
[2018-08-25] MEDS ORDERED: PROPOFOL IV EMULSION 10MG/ML 100 ML ONE (00:40)
[2018-08-25] MEDS: PROPOFOL IV EMULSION 10MG/ML 100 ML IV SCH ×2 (00:45→09:19)
[2018-08-25] MEDS ORDERED: SODIUM CHLORIDE 0.9% 1000ML 1,000 ML ONE (00:46)
[2018-08-25 01:12] LABS: BASOPHILS % 0.2 % (0.0-1.0); HEMATOCRIT 31.9 % (34.2-44.1); HEMOGLOBIN 10.9 g/dL (12.0-16.0); LYMPHOCYTES # (AUTO) 0.8 (1.0-3.2); LYMPHOCYTES % 8.5 % (18.0-39.1); MEAN CORPUSCULAR HEMOGLOBIN 29.3 pg (28-32); MEAN CORPUSCULAR HGB CONC 34.2 g/dL (31-35); MONOCYTES # (AUTO) 0.7 (0.2-0.8); MONOCYTES % 8.2 % (4.4-11.3); NEUTROPHILS # (AUTO) 7.2 (2.1-6.9); NEUTROPHILS % 80.7 % (38.7-80.0); PLATELET COUNT 151 x10e3/uL (140-360); RED BLOOD COUNT 3.72 x10e6/uL (3.6-5.1); RED CELL DISTRIBUTION WIDTH 17.9 % (11.7-14.4)
[2018-08-25 01:21] LABS: MEAN CORPUSCULAR VOLUME 85.8 fL (81-99)
[2018-08-25 01:22] LABS: CALCIUM 8.1 mg/dL (8.4-10.2); CREATININE, SERUM 1.29 mg/dL (0.57-1.11)
--- NOTE | 2018-08-25 02:07 | Diagnostic Imaging Report ---
EXAMINATION: CHEST SINGLE (PORTABLE) COMPARISON: Chest x-ray 08/22/2018 INDICATION: ^check ETT placement ^[id number] ^0115 DISCUSSION: Frontal view of the chest obtained at 0112 hours. HEART AND MEDIASTINUM: The heart is top normal in size and stable LINES: Endotracheal tube terminates approximately 4 cm above the rafa. Right IJ catheter terminates in the SVC. Enteric tube extends past the diaphragm. LUNGS: Mild vascular congestion. Perihilar interstitial opacities show some improvement. There is posterior right basilar atelectasis and retrocardiac airspace disease. PLEURA: No large effusions. No pneumothorax. BONES AND SOFT TISSUES: Stable degenerative changes of the spine. No focal osseous lesions. The soft tissues are normal. IMPRESSION: 1. Support devices as described above. 2. Improved perihilar interstitial opacities. Persistent vascular congestion. Bibasilar airspace opacities suggestive of atelectasis or infiltrate. Signed by: Dr. Jose E Scott MD on 08/25/2018 2:04 AM
[2018-08-25] MEDS: SODIUM CHLORIDE 0.9% 1000ML 1,000 ML IV SCH ×2 (03:05→23:23)
[2018-08-25 05:15] LABS: BASOPHILS % 0.2 % (0.0-1.0); HEMATOCRIT 31.1 % (34.2-44.1); HEMOGLOBIN 10.6 g/dL (12.0-16.0); LYMPHOCYTES # (AUTO) 0.7 (1.0-3.2); LYMPHOCYTES % 8.4 % (18.0-39.1); MEAN CORPUSCULAR HEMOGLOBIN 29.7 pg (28-32); MEAN CORPUSCULAR HGB CONC 34.1 g/dL (31-35); MEAN CORPUSCULAR VOLUME 87.1 fL (81-99); MONOCYTES # (AUTO) 0.7 (0.2-0.8); NEUTROPHILS # (AUTO) 6.5 (2.1-6.9); NEUTROPHILS % 80.6 % (38.7-80.0); PLATELET COUNT 136 x10e3/uL (140-360); RED BLOOD COUNT 3.57 x10e6/uL (3.6-5.1); RED CELL DISTRIBUTION WIDTH 17.9 % (11.7-14.4)
[2018-08-25] MEDS: CEFOXITIN 1GM/ D5W 50ML 50 ML IV SCH ×3 (05:15→18:39)
[2018-08-25 05:44] LABS: ANION GAP 11.1 mmol/L (8-16); CALCIUM 8.1 mg/dL (8.4-10.2); CREATININE, SERUM 1.18 mg/dL (0.57-1.11); MAGNESIUM 2.1 MG/DL (1.3-2.1); POTASSIUM 4.1 mmol/L (3.5-5.1)
[2018-08-25] MEDS: INSULIN LISPRO 100 UNIT/1 ML 3ML VIAL SQ SCH ×4 (06:41→18:26)
[2018-08-25 07:01] LABS: CLARITY,URINE HAZY (CLEAR); COLOR,URINE AMBER (YELLOW); LEUKOCYTE ESTERASE ,URINE NEGATIVE (NEGATIVE); NITRITE,URINE NEGATIVE (NEGATIVE)
[2018-08-25 07:02] LABS: BACTERIA,URINE FEW /HPF; BILIRUBIN,URINE 2+ (NEGATIVE); EPITHELIAL CELLS,URINE FEW /LPF; KETONES,URINE NEGATIVE (NEGATIVE); PROTEIN,URINE DIPSTICK 1+ (NEGATIVE); RBC,URINE >50 /HPF (0-5); URINE UROBILINOGEN 0.2 mg/dL (0.2 - 1); WBC,URINE (MAN) 0-5 /HPF (0-5)
[2018-08-25 07:28] LABS: CREATININE,URINE RANDOM 64.62 mg/dL (47-110); SODIUM,URINE 33 mmol/L
[2018-08-25 08:53] LABS: EOSINOPHIL SMEAR,URINE NONE SEEN (NONE SEEN)
[2018-08-25] MEDS: PANTOPRAZOLE 40 MG 10ML VIAL IV SCH (09:18)
[2018-08-25] MEDS: ONDANSETRON HCL INJ 2MG/ML 2ML 2 MG/ML VIAL IV PRN (09:19)
[2018-08-25] MEDS: AMMONIUM LACTATE 12% LOTION 225GM BTL TOP SCH ×2 (09:27→16:30)
--- NOTE | 2018-08-25 10:27 | Operative Report ---
DATE OF PROCEDURE: 08/24/2018 SURGEON: Robert Omer MD PREOPERATIVE DIAGNOSIS: Intraabdominal bleeding, post whipping procedure. POSTOPERATIVE DIAGNOSIS: Intraabdominal bleeding, post whipping procedure. OPERATIVE PROCEDURE: Resection of jejunojejunostomy with recreations of jejunojejunostomy. ANESTHESIA: General endotracheal. INDICATIONS FOR SURGERY: A 68-year-old female, 2 days status post whipping procedure for ampullary tumor with evidence of intraabdominal bleeding from drainage output of sanguinous fluid along with multiple units of packed red cell and FFP transfusion without improvement in the hemoglobin level. At this point in time, the family has consented for reexploration and control of intraabdominal bleeding. PROCEDURE FINDING: Large intraluminal and extraluminal clots at the jejunojejunostomy anastomosis secondary to staple line bleeding. DESCRIPTION OF PROCEDURE: The patient was brought to the OR, intubated. Abdomen was then prepped with alcohol and draped in a sterile fashion. The staple and suture from prior procedure were removed entering the peritoneal cavity without difficulty. The previous anastomosis area was then approached at the upper abdomen above the transverse colon. All the anastomosis seemed to be intact with no active bleeding seen at this area of the Morgan drain in the Rizo pouch. At this point, irrigation was carried out. The omentum was then placed to feel the area of the biliary jejunostomy and pancreaticojejunostomy anastomosis. We then looked in the lower abdomen at the side of the jejunojejunostomy and found large amount of clots both intraluminal and extraluminal at the jejunojejunostomy. At this point, decision was made to resect the jejunojejunostomy and recreations of the intestinal continuity by jejunojejunostomy anastomosis x2. This was carried out first between the rg limb to the pancreatojejunostomy to establish continuity of the jejunum using the staple technique with a firing of LASHAUN and TL-60 instrument. Prior to closure of opening in the bowel, the staple line was examined and some oozing from staple line was oversewed with [id number] stitch of 3-0 Vicryl. This ensured hemostasis inside the lumen. Approximately 20 cm distal to this anastomosis, the afferent limb from the biliary jejunostomy anastomosis was then reconnected to the rg limb off the pancreatojejunostomy using hand sewing techniques in 2 layers with Lembert stitch of 3-0 silk for the external layers and the inner layers of 3-0 Vicryl full thickness running stitch. Mesenteric defects were closed with interrupted 3-0 silk stitches. Operative field was irrigated with copious saline solution, hemostasis was achieved. We removed approximately total of a liter of clots both intraluminal and extraluminal. With hemostasis achieved, we closed the abdomen approximating the posterior fascia running 0 Vicryl, anterior fascia closure running 0 PDS, skin was closed with dee. The patient was then transported and intubated in guarded condition to recovery room. Estimated blood loss as mentioned, total of 1 L including clots. The patient was transfused with 2 units of Paxil, 1 unit of FFP and 1 unit of platelets intraoperatively. MD AGAPITO Kitchen/AVEL /[id number]
[2018-08-25 11:56] LABS: ABG HCO3 21 mmol/L (23-28); ABG PCO2 36 mmHg (41-51); ABG PH 7.38 (7.31-7.41); ABG PO2 92 mmHg (80-105)
[2018-08-25] MEDS: FENTANYL CITRATE INJ 2,000 MCG in SODIUM CHLORIDE 0.9% 250ML 210 ML IV PRN ×2 (12:53→21:10)
--- NOTE | 2018-08-25 13:13 | Progress Note ---
DATE: 08/25/2018 Nephrology Progress Note SUBJECTIVE: The patient overnight had to be intubated due to respiratory failure. From a renal standpoint, she is doing much better. She has good urine output improved. She is not hypotensive. OBJECTIVE: VITAL SIGNS: Temperature is 98.6, pulse is 100, respiratory rate is 14. Pulse ox is 100%. She is on mechanical ventilator. Blood pressure is 109/49. GENERAL: She is intubated and sedated. HEENT: Head is normocephalic and atraumatic. Eyes; pupils are equal, round, and reactive to light bilaterally. Extraocular movements are intact bilaterally. NECK: Supple. Good range of motion. No evidence of . PULMONARY: Clear to auscultation bilaterally. No wheezing, no rales, no rhonchi. She is intubated. CARDIOVASCULAR: Positive S1 and S2. No murmur or gallop appreciated. ABDOMEN: Soft, nondistended, and nontender to palpation. Bowel sounds are present. MUSCULOSKELETAL: She is intubated. NEUROLOGIC: Intubated. PSYCHIATRIC: Intubated. EXTREMITIES: No edema. Good range of motion throughout. LABORATORY DATA: Lab findings show white count 8.1, hemoglobin 10.6, hematocrit is 31, platelets are 136. Coagulation; PT 12, INR 0.91. Chemistry; sodium 138, potassium 4.1, chloride 110, bicarb 21, anion gap is 11, BUN 37, creatinine is 1.1, glucose is 342, calcium is 8.1, magnesium is 2.1. IMAGING STUDIES: Chest x-ray shows persistent vascular congestion. It shows infiltrate. IMPRESSION: 1. Acute kidney injury secondary to hypotension leading to acute ATN. 2. Oliguria. 3. Status post pancreaticoduodenectomy. 4. Hypotension. 5. Respiratory failure, now intubated. PLAN: At this time, her renal function actually improved blood pressure. Urine output was 1.6 L produced. Her creatinine today is 1.18. . Her electrolytes are stable. She is not acidotic. At this time, from the renal standpoint, we will continue same plan of care and monitor her very closely. Get mann.mckay kang. MD JOCELYN Finley/AVEL /[id number]
[2018-08-25 14:35] LABS: BASOPHILS % 0.3 % (0.0-1.0); EOSINOPHILS % 0.1 % (0.0-6.0); HEMATOCRIT 35.2 % (34.2-44.1); HEMOGLOBIN 11.8 g/dL (12.0-16.0); LYMPHOCYTES # (AUTO) 1.2 (1.0-3.2); LYMPHOCYTES % 10.7 % (18.0-39.1); MEAN CORPUSCULAR HEMOGLOBIN 29.6 pg (28-32); MEAN CORPUSCULAR HGB CONC 33.5 g/dL (31-35); MEAN CORPUSCULAR VOLUME 88.2 fL (81-99); MONOCYTES # (AUTO) 1.3 (0.2-0.8); MONOCYTES % 11.1 % (4.4-11.3); NEUTROPHILS # (AUTO) 8.6 (2.1-6.9); NEUTROPHILS % 75.7 % (38.7-80.0); PLATELET COUNT 169 x10e3/uL (140-360); RED BLOOD COUNT 3.99 x10e6/uL (3.6-5.1); RED CELL DISTRIBUTION WIDTH 18.9 % (11.7-14.4)
[2018-08-25] MEDS: VASOPRESSIN 100 UNIT in DEXTROSE 5% 100ML 100 ML IV SCH (14:43)
[2018-08-25 14:51] LABS: ANION GAP 12.2 mmol/L (8-16); CALCIUM 8.5 mg/dL (8.4-10.2); CREATININE, SERUM 1.47 mg/dL (0.57-1.11); POTASSIUM 4.2 mmol/L (3.5-5.1)
--- NOTE | 2018-08-25 15:10 | NUR ---
Visit made by the Spiritual Care Department Pastoral Visitor, Jenni Cervantes. PV provided pastoral presence, communion, prayer, hospitality, and supportive listening. Pastoral Visitor informed pt/family of the scope of [employer] and availability. DOMONIQUE PICHARDO Cashier Clerk Spiritual Care Department O: [phone] Pager: [phone] ([phone] number calling from)
--- NOTE | 2018-08-25 18:43 | Consultation ---
DATE OF CONSULTATION: 08/25/2018 Pulmonary Critical Care Consultation REASON FOR CONSULTATION: ICU management, ventilator management. HISTORY OF PRESENT ILLNESS: Ms. Goodwin is a 68-year-old female, initially admitted on the with a complaint of jaundice for 2 months. She was evaluated by Surgery. The patient had diarrhea at that time, surgical evaluation was done by Dr. Omer. 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 The patient tolerated the procedure, however, over a period of next 3 days, the patient had episodes of bleeding from the abdomen. She was taken back to the OR last night and operative note shows that the patient had large intraluminal and extraluminal clots at jejunojejunostomy from staple line bleeding. This was repaired. The patient had a ARMANDO drain and she was transferred back to ICU, intubated. She has a 7.0 tube. She was on 500 tidal volume at the rate of 14 and a PEEP of 4. She has developed renal failure since she has been in the hospital. Her creatinine on the 1st was 1.67 and now it is 1.18. She is arousable. She is on propofol, following commands. REVIEW OF SYSTEMS: Unable to elicit any because the patient is sedated. PAST MEDICAL HISTORY: Pancreatoduodenectomy, Whipple's procedure. The patient possibly was not diabetic, but now she is on insulin and her blood sugars were high. PAST SURGICAL HISTORY: History of cholecystectomy. FAMILY AND SOCIAL HISTORY: She does not smoke, does not drink. PHYSICAL EXAMINATION: VITAL SIGNS: Temperature 97.4, pulse of 99, blood pressure 105/46, respiratory rate of 18, O2 sat is 100%. She is on mechanical ventilator with a FiO2 of 40%. HEENT: Head is atraumatic and normocephalic. Pupils are reactive. NECK: Supple. CHEST: Clear to auscultation bilaterally. She has ARMANDO drain. ABDOMEN: Soft. EXTREMITIES: No pedal edema. NEUROLOGIC: She is sedated and intubated. LABORATORY DATA: Sodium 138, potassium 4.1, chloride 110, BUN 37, creatinine 1.18. Creatinine was 1.67 on the 1st. INR is 0.91. White count of 8000, hemoglobin 10.6, platelets 136. Chest x-ray, reviewed the images. It is showing some increased infiltrate on the right lower lobe and vascular congestion, possibly left lower lobe atelectasis, but no focal infiltrate. ASSESSMENT: Ms. Goodwin is a [id number], status post Whipple's procedure, postoperative complications with intraluminal bleeding and bleeding from jejunojejunostomy anastomosis site, status post exploratory laparotomy with removal of hematoma, now has ARMANDO drain and the patient is intubated with a 7.0 tube. She is currently on TPN. Current problems: 1. Status post Whipple's procedure. 2. Acute respiratory insufficiency in postoperative period. 3. Possibly diabetes, no history of diabetes. 4. Anemia. 5. 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 PLAN: Check the ABG, reduce the tidal volume to 450, increase the PEEP to 5, add fentanyl for better pain control. Blood pressure has been marginal, we will hold off on the Lasix. At this point, may need some diuretics as the patient appears to be fluid overload with TPN. Consider diuretics once the blood pressure is somewhat stable, possibly in a.m. Not ready for extubation at this point. The patient is postoperative, cannot start on DVT prophylaxis with Lovenox, the patient has SCDs. Discussed with daughter at bedside in detail. Critical care time spent is 45 minutes. MD GALI Cruz/AVEL /[id number]
[2018-08-25] MEDS: CENTRAL TPN FORMULA 1 BAG IV SCH (20:56)
[2018-08-25] MEDS ORDERED: INSULIN GLARGINE 100 UNITS/ML VIAL SQ SCH (21:00)
[2018-08-25] MEDS: INSULIN GLARGINE 100 UNITS/ML VIAL SQ SCH (21:12)
[2018-08-26] VITALS (26 sets, daily range): BP systolic 88–128; BP diastolic 38–76
[2018-08-26 05:07] LABS: BASOPHILS % 0.4 % (0.0-1.0); EOSINOPHILS # (AUTO) 0.1 (0.0-0.4); EOSINOPHILS % 0.6 % (0.0-6.0); HEMATOCRIT 32.3 % (34.2-44.1); HEMOGLOBIN 10.7 g/dL (12.0-16.0); LYMPHOCYTES # (AUTO) 0.9 (1.0-3.2); LYMPHOCYTES % 9.9 % (18.0-39.1); MEAN CORPUSCULAR HEMOGLOBIN 29.6 pg (28-32); MEAN CORPUSCULAR HGB CONC 33.1 g/dL (31-35); MEAN CORPUSCULAR VOLUME 89.2 fL (81-99); MONOCYTES # (AUTO) 1.1 (0.2-0.8); NEUTROPHILS # (AUTO) 7.2 (2.1-6.9); NEUTROPHILS % 75.1 % (38.7-80.0); PLATELET COUNT 151 x10e3/uL (140-360); RED BLOOD COUNT 3.62 x10e6/uL (3.6-5.1); RED CELL DISTRIBUTION WIDTH 19.1 % (11.7-14.4)
[2018-08-26 05:35] LABS: ANION GAP 9.4 mmol/L (8-16); CALCIUM 8.4 mg/dL (8.4-10.2); CREATININE, SERUM 1.01 mg/dL (0.57-1.11); MAGNESIUM 2.4 MG/DL (1.3-2.1); POTASSIUM 4.4 mmol/L (3.5-5.1)
[2018-08-26] MEDS: CEFOXITIN 1GM/ D5W 50ML 50 ML IV SCH ×4 (06:28→18:08)
[2018-08-26] MEDS: INSULIN LISPRO 100 UNIT/1 ML 3ML VIAL SQ SCH ×4 (06:38→19:23)
[2018-08-26] MEDS: PANTOPRAZOLE 40 MG 10ML VIAL IV SCH (08:38)
[2018-08-26] MEDS: AMMONIUM LACTATE 12% LOTION 225GM BTL TOP SCH ×2 (09:00→17:00)
[2018-08-26] MEDS: FENTANYL CITRATE INJ 2,000 MCG in SODIUM CHLORIDE 0.9% 250ML 210 ML IV PRN ×2 (09:00→20:43)
--- NOTE | 2018-08-26 09:06 | NUR ---
attempted to wean vent with dr. simms present. hr 130's, bp 128/57, rr 14-17. pt calm and denies any distress at this time. sats 98% abg completed. will attempt wean of vent again tomorrow as patient is not ready today. Family at bedside and updated with plan of care.
[2018-08-26] MEDS ORDERED: SODIUM BICARBONATE 8.4% INJ 50 ML SYR IV STA (10:14)
--- NOTE | 2018-08-26 10:28 | NUR ---
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
[2018-08-26 11:04] LABS: ABG HCO3 19 mmol/L (23-28); ABG PCO2 41 mmHg (41-51); ABG PH 7.27 (7.31-7.41); ABG PO2 106 mmHg (80-105)
[2018-08-26] MEDS ORDERED: CENTRAL TPN FORMULA 1 BAG IV SCH ×2 (12:15→20:00)
--- NOTE | 2018-08-26 13:04 | Progress Note ---
DATE: 08/26/2018 Nephrology Progress Note SUBJECTIVE: The patient is doing much better. She is still intubated, but she is off sedation. Her pH was 7.25, but unexplanatory, could be from the hyperchloremic metabolic acidosis leading to lower bicarb. She is still very tachycardic and difficult to extubate. LABORATORY DATA: Lab findings show white count is 9.5, hemoglobin is 10.7, hematocrit is 32, platelets of 161. Sodium 138, potassium 4.4, chloride 113, bicarb 20, anion gap of , BUN 40, creatinine 1, and glucose 195. Urinalysis; urine eosinophils was none seen. OBJECTIVE: VITAL SIGNS: Temperature is 97.8, pulse 135, blood pressure 128/57, respiratory rate is 14. She is saturating 100% on mechanical ventilator. GENERAL: Not in acute distress, alert and oriented x2, cooperative on examination. HEENT: Head is normocephalic, atraumatic. Eyes, pupils equal and reactive to light bilaterally. Extraocular movements are intact bilaterally. NECK: Supple. Good range of motion throughout. No evidence of erythema or exudates in the posterior pharynx. Has poor dentition. PULMONARY: Clear to auscultation bilaterally. No wheezing, rales, rhonchi, or crackles appreciated. CARDIOVASCULAR: Positive S1 and S2. No murmur, rub or gallop appreciated. ABDOMEN: Soft, nondistended, and nontender to palpation. Bowel sounds present. MUSCULOSKELETAL: Strength is 5/5 throughout . NEUROLOGIC: Cranial nerves II through XII are grossly intact. IMPRESSION: 1. Acute kidney injury secondary to hypotension leading to acute tubular necrosis, now resolved. 2. Nonoliguria. 3. Status post pancreatoduodenectomy. 4. Hypotension, improved. 5. Respiratory failure, still intubated. 6. Non-anion gap hyperchloremic metabolic acidosis. PLAN: At this time her slight acidosis is due to hyperchloremia from MS. Her net positive is only approximately 300 mL in 24 hours. She shows no evidence of any edema on examination. At this time, I will continue with TPN and normal saline. I will give one amp of sodium bicarbonate. There is no indication for any bicarb drip or any Lasix. However, she is making good urine and electrolytes are stable. We will continue same plan of care. Monitor very closely. We will repeat labs in the morning. MD JOCELYN Finley/AVEL /[id number]
--- NOTE | 2018-08-26 15:15 | NUR ---
Nutrition Intervention Note RD Recommendation(s) for Physician: -Current standard PN (30% dextrose, 10% AA) order at 57mL/hr with daily 25g lipids, providing 1200kcal, 69g protein, and 1368mL fluids. meet 100% of est calorie need and 83% of est protein need -Rec to increase AA to 15% to more adequately meet her protein needs -Check BMP, Phos, Mag daily; Prealbumin, LFT and TG levels weekly -Continue with TPN per MD until diet is advanced and intake is >50%. Plan of Care: RD following, monitoring for tolerance and adequacy, TPN Nutrition reason for involvement: Follow up RD Assessment (08/26) Pt went into OR for repair of large intraluminal and extraluminal clots at jejunojejunostomy from staple line bleeding on 08/25. Pt remained intubated. NGT to suction. No pressor meds. Last phosphorus was drawn on 08/23. No sign of refeeding syndrome with normal K and Na, high Mg. Flatus absent. No BM since 08/21. Current PN was appropriate. Will continue to monitor and follow. (08/23) Pt was discussed during AM rounds. Pt remained severely jaundice. 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 Pt hasnt pass gas since surgery. Pt has been NPO/clear liquid/full liquid x 10days. PN was scheduled to start TPN this evening; order has been placed. Will continue to monitor and follow. (08/20) Chart reviewed. Labs and meds reviewed. BG 120 190. Visited pt in the room. Pt tolerated full liquids well. Possible procedure tomorrow. Pt denied any nausea or vomiting. LBM 08/20. No chewing or swallowing difficulty noted. Will cont to monitor. Please consult as needed. (08/13) Chart reviewed. Labs and meds reviewed. 68yo F, who was admitted for generalized rash and jaundice. GI consulted for possible ERCP. 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 Pt denied chewing/swallowing problems and nausea/vomiting. Pt was NPO; clear liquid was later ordered. Will cont to monitor. Please consult as needed. 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 Will re-evaluate at follow-up as appropriate. Energy intake: <75% of estimated energy requirements for >7 days Weight loss: Unable to evaluate since weights have been inconsistent Fat loss: N/A Muscle loss: N/A Supporting Evidence: Fluid accumulation: unable to evaluate Functional Status: no changes Nutrition Prescription (Diet Order): NPO Estimated Nutritional Needs: Calories: 1210 1375kcal (22-25kcal/kg/d) Weight used: IBW Protein: 83 138g (1.5-2.5g/kg/d) Weight used: IBW Diet Adequacy: meeting calorie needs, meeting protein needs Diet Education Needs Assessment: Diet education indicated, but patient not appropriate for education at this time. Nutrition Care Level: high Nutrition Diagnosis: Inadequate oral intake related to acute illness as evidenced by pt requiring PN as main source of nutrition. Goal: Patient will meet 75-100% of estimated needs by follow up Progress: Goal met Interventions: Composition, Rate, Route Monitoring/Evaluation: Total energy intake, Total protein intake, Formula/Solution, Weight change Signed: Christine Marsh, MS, RD, LD
--- NOTE | 2018-08-26 20:11 | NUR ---
nursing report givne to scene shifter
[2018-08-26] MEDS: SODIUM CHLORIDE 0.9% 1000ML 1,000 ML IV SCH (20:34)
[2018-08-26] MEDS: ENOXAPARIN SOD INJ 40 MG/0.4 ML SYR SC SCH (21:11)
[2018-08-26] MEDS: INSULIN GLARGINE 100 UNITS/ML VIAL SQ SCH (21:12)
[2018-08-27] VITALS (25 sets, daily range): BP systolic 102–168; BP diastolic 42–95
[2018-08-27] MEDS: INSULIN LISPRO 100 UNIT/1 ML 3ML VIAL SQ SCH ×4 (00:12→18:44)
[2018-08-27] MEDS: CEFOXITIN 1GM/ D5W 50ML 50 ML IV SCH ×4 (00:15→18:45)
[2018-08-27 05:08] LABS: BASOPHILS % 0.4 % (0.0-1.0); EOSINOPHILS # (AUTO) 0.1 (0.0-0.4); HEMATOCRIT 30.8 % (34.2-44.1); LYMPHOCYTES # (AUTO) 0.7 (1.0-3.2); MEAN CORPUSCULAR HEMOGLOBIN 29.9 pg (28-32); MEAN CORPUSCULAR HGB CONC 32.5 g/dL (31-35); MONOCYTES # (AUTO) 1.2 (0.2-0.8); MONOCYTES % 13.4 % (4.4-11.3); NEUTROPHILS # (AUTO) 6.9 (2.1-6.9); NEUTROPHILS % 74.9 % (38.7-80.0); PLATELET COUNT 149 x10e3/uL (140-360); RED BLOOD COUNT 3.34 x10e6/uL (3.6-5.1); RED CELL DISTRIBUTION WIDTH 19.8 % (11.7-14.4)
[2018-08-27 05:10] LABS: MEAN CORPUSCULAR VOLUME 92.2 fL (81-99)
[2018-08-27 05:22] LABS: INR 0.99; PROTHROMBIN TIME 13.6 seconds (11.9-14.5)
[2018-08-27 05:23] LABS: PARTIAL THROMBOPLASTIN TIME 42.8 seconds (23.8-35.5)
[2018-08-27 05:31] LABS: ALANINE AMINOTRANSFERASE 33 IU/L (0-55); ALBUMIN 1.5 g/dL (3.5-5.0); ALBUMIN/GLOBULIN RATIO 0.5 (0.8-2.0); ALKALINE PHOSPHATASE 144 IU/L (40-150); BLOOD UREA NITROGEN 39 mg/dL (7-26); BUN/CREATININE RATIO 43 (6-25); CALCIUM 8.3 mg/dL (8.4-10.2); CARBON DIOXIDE 22 mmol/L (22-29); CHLORIDE 120 mmol/L (98-107); EST GLOMERULAR FILTRATION RATE > 60 ML/MIN (60-); GLUCOSE 109 mg/dL (74-118); SODIUM 146 mmol/L (136-145)
[2018-08-27] MEDS: PANTOPRAZOLE 40 MG 10ML VIAL IV SCH (08:23)
[2018-08-27] MEDS: AMMONIUM LACTATE 12% LOTION 225GM BTL TOP SCH ×2 (09:00→17:00)
--- NOTE | 2018-08-27 09:09 | NUR ---
patient extubated at 0848am per MD order. Dr. Albright, myself and respiratory therapist present during extubation. patient sats 99%, hr 104, rr 13, bp 120/53. pt calm and sitting in upright position. no distress at this time. pt denies any sob or pain. patient daughter at bedside.
[2018-08-27 09:29] LABS: ABG HCO3 20 mmol/L (23-28); ABG PCO2 40 mmHg (41-51); ABG PH 7.31 (7.31-7.41); ABG PO2 126 mmHg (80-105)
[2018-08-27 10:00] LABS: EOSINOPHILS % (MANUAL) 2 % (0-7); LYMPHOCYTES % (MANUAL) 7 % (19-48); MONOCYTES % (MANUAL) 12 % (3.4-9.0); MYELOCYTES % (MANUAL) 1 % (0-0); NEUTROPHILS % (MANUAL) 78 % (40-74)
[2018-08-27] MEDS: DEXTROSE 5% 1,000 ML IV SCH (10:00)
[2018-08-27 10:01] LABS: PLATELET ESTIMATE ADEQUATE; PLATELET MORPHOLOGY COMMENT NORMAL; RBC MORPHOLOGY COMMENT NORMAL
[2018-08-27 10:24] LABS: ABG HCO3 19 mmol/L (23-28); ABG PCO2 39 mmHg (41-51); ABG PH 7.31 (7.31-7.41); ABG PO2 116 mmHg (80-105)
--- NOTE | 2018-08-27 12:04 | Progress Note ---
DATE: 08/27/2018 Nephrology Progress Note SUBJECTIVE: The patient is doing much better today with no complaints. Sodium level went up, we will change it to D5 at 50 mL/h. PHYSICAL EXAMINATION: GENERAL: The patient is still intubated. VITAL SIGNS: Temperature 99, pulse is 104, respiratory rate is 14, blood pressure 120/80, pulse ox 99% on nasal cannula 4 L. GENERAL: Not in acute distress. Oriented x3. Cooperative on examination. HEENT: Head is normocephalic, atraumatic. Eyes, pupils equal, round, reactive to light. Extraocular is intact. NECK: Supple. Good range of motion throughout. No evidence of erythema or exudates in the posterior pharynx. Has poor dentition. PULMONARY: Clear to auscultation bilaterally. No wheezing, no rales, no rhonchi, no crackles appreciated. CARDIOVASCULAR: Positive S1 and S2. No murmurs, rubs, or gallops appreciated. ABDOMEN: Soft, nondistended, and nontender to palpation. Bowel sounds are present. MUSCULOSKELETAL: Strength is 5/5 throughout. NEUROLOGIC: Cranial nerves II through XII are grossly intact. . PSYCHIATRIC: Normal affect and mood. EXTREMITIES: No edema. Good range of motion throughout. LABORATORY DATA: Lab findings show white count 9.8, hemoglobin 10, hematocrit 31, platelets of 149. Coagulation: PT 13, INR 0.99, PTT 42. Chemistry: Sodium 142, potassium 4, chloride 120, bicarb 22, anion gap of 8, BUN 39, creatinine is 0.9, glucose is 109, calcium is 8.3, AST 67, ALT 33. Microbiology, none. IMAGING STUDIES: None. IMPRESSION: 1. Acute kidney injury secondary to hypotension leading to acute tubular necrosis, now resolved. 2. Nonoliguria. 3. Status post pancreatoduodenectomy. 4. Hypotension, resolved. 5. Respiratory failure, now doing well. 6. Non-anion gap hyperchloremic metabolic acidosis. 7. Mild hypernatremia. PLAN: Change IV fluids to D5 at 50 mL/h. Continue with TPN. Has good urine output. We will get repeat labs in the morning. Rest electrolytes are stable. We will continue to monitor very closely. MD JOCELYN Finley/AVEL /[id number]
[2018-08-27] MEDS ORDERED: CENTRAL TPN FORMULA 1 BAG IV SCH (14:04)
[2018-08-27 14:13] LABS: BASOPHILS % 0.4 % (0.0-1.0); EOSINOPHILS # (AUTO) 0.1 (0.0-0.4); EOSINOPHILS % 0.7 % (0.0-6.0); HEMOGLOBIN 10.2 g/dL (12.0-16.0); LYMPHOCYTES # (AUTO) 0.6 (1.0-3.2); LYMPHOCYTES % 5.9 % (18.0-39.1); MEAN CORPUSCULAR HEMOGLOBIN 29.7 pg (28-32); MEAN CORPUSCULAR HGB CONC 31.9 g/dL (31-35); MEAN CORPUSCULAR VOLUME 93.3 fL (81-99); MONOCYTES # (AUTO) 0.7 (0.2-0.8); MONOCYTES % 7.5 % (4.4-11.3); NEUTROPHILS # (AUTO) 8.2 (2.1-6.9); PLATELET COUNT 158 x10e3/uL (140-360); RED BLOOD COUNT 3.43 x10e6/uL (3.6-5.1); RED CELL DISTRIBUTION WIDTH 19.9 % (11.7-14.4)
[2018-08-27] MEDS ORDERED: MORPHINE SULFATE 2 MG/ML SYR 1ML IV PRN (14:15)
[2018-08-27] MEDS: ENOXAPARIN SOD INJ 40 MG/0.4 ML SYR SC SCH (18:45)
--- NOTE | 2018-08-27 21:27 | NUR ---
nursing report given to night filler JEANETTE Monahan
[2018-08-27] MEDS: INSULIN GLARGINE 100 UNITS/ML VIAL SQ SCH (21:47)
[2018-08-28] VITALS (20 sets, daily range): BP systolic 112–145; BP diastolic 48–62
[2018-08-28] MEDS: CEFOXITIN 1GM/ D5W 50ML 50 ML IV SCH ×5 (00:47→23:49)
[2018-08-28] MEDS: INSULIN LISPRO 100 UNIT/1 ML 3ML VIAL SQ SCH ×5 (00:48→23:48)
[2018-08-28 05:10] LABS: BASOPHILS # (AUTO) 0.1 (0.0-0.1); BASOPHILS % 0.5 % (0.0-1.0); EOSINOPHILS # (AUTO) 0.1 (0.0-0.4); EOSINOPHILS % 1.5 % (0.0-6.0); HEMATOCRIT 31.9 % (34.2-44.1); HEMOGLOBIN 10.2 g/dL (12.0-16.0); LYMPHOCYTES # (AUTO) 0.6 (1.0-3.2); LYMPHOCYTES % 6.6 % (18.0-39.1); MEAN CORPUSCULAR HEMOGLOBIN 29.7 pg (28-32); MONOCYTES # (AUTO) 1.1 (0.2-0.8); MONOCYTES % 11.8 % (4.4-11.3); NEUTROPHILS # (AUTO) 7.4 (2.1-6.9); NEUTROPHILS % 77.5 % (38.7-80.0); PLATELET COUNT 153 x10e3/uL (140-360); RED BLOOD COUNT 3.43 x10e6/uL (3.6-5.1); RED CELL DISTRIBUTION WIDTH 19.9 % (11.7-14.4)
[2018-08-28 05:33] LABS: ANION GAP 8.9 mmol/L (8-16); BLOOD UREA NITROGEN 36 mg/dL (7-26); BUN/CREATININE RATIO 46 (6-25); CALCIUM 8.7 mg/dL (8.4-10.2); CARBON DIOXIDE 20 mmol/L (22-29); CHLORIDE 117 mmol/L (98-107); CREATININE, SERUM 0.78 mg/dL (0.57-1.11); EST GLOMERULAR FILTRATION RATE > 60 ML/MIN (60-); GLUCOSE 113 mg/dL (74-118); MAGNESIUM 1.9 MG/DL (1.3-2.1); POTASSIUM 3.9 mmol/L (3.5-5.1); SODIUM 142 mmol/L (136-145)
[2018-08-28 07:00] LABS: EOSINOPHILS % (MANUAL) 1 % (0-7); LYMPHOCYTES % (MANUAL) 8 % (19-48); MONOCYTES % (MANUAL) 11 % (3.4-9.0); NEUTROPHILS % (MANUAL) 78 % (40-74); PLATELET ESTIMATE ADEQUATE
[2018-08-28 07:01] LABS: PLATELET MORPHOLOGY COMMENT NORMAL; RBC MORPHOLOGY COMMENT NORMAL
[2018-08-28] MEDS: MORPHINE SULFATE INJ 4 MG/ML INJ 1ML IV PRN (08:38)
[2018-08-28] MEDS: PANTOPRAZOLE 40 MG 10ML VIAL IV SCH (09:00)
[2018-08-28] MEDS: AMMONIUM LACTATE 12% LOTION 225GM BTL TOP SCH ×2 (09:00→17:00)
[2018-08-28] MEDS: DEXTROSE 5% 1,000 ML IV SCH (09:15)
--- NOTE | 2018-08-28 13:50 | Progress Note ---
DATE: 08/28/2018 Nephrology Progress Note SUBJECTIVE: The patient is at baseline . Very minimal bowel sounds. Her labs reviewed and stable. From the renal standpoint, her labs are improved. She has good urine output. OBJECTIVE: VITAL SIGNS: Temperature is 98.1, pulse 75, respiratory rate is 19, and blood pressure 139/64, and pulse ox 100% on 2 L nasal cannula. GENERAL: Has an NG tube. In no acute distress. Alert and oriented x3. Cooperative on exam. HEENT: Head is normocephalic and atraumatic. Eyes, pupils equal, round, and reactive to light bilaterally. Extraocular movements are intact bilaterally. NECK: Supple. Good range of motion throughout. No evidence of erythema or exudates in the posterior pharynx. Poor dentition. PULMONARY: Clear to auscultation bilaterally. No wheezing, rales, or rhonchi are appreciated. CARDIOVASCULAR: Positive S1, S2. No murmurs or gallops. ABDOMEN: Soft, nondistended, nontender to palpation. Bowel sounds present. MUSCULOSKELETAL: Strength is 5/5 throughout warm to touch. PSYCHIATRIC: Normal affect and mood. EXTREMITIES: . LABORATORY DATA: White count 9.5, hemoglobin 10.2, hematocrit 32, and platelets of 153. Chemistry: Sodium 142, potassium 3.9, chloride 117, bicarb 20, anion gap , BUN 36, and creatinine 0.78. IMPRESSION: 1. Acute kidney injury secondary to hypotension leading to acute tubular necrosis. 2. Oliguria. 3. Status post pancreaticoduodenectomy. 4. Hypotension. 5. Respiratory failure, now extubated. PLAN: At this time, her creatinine improved to 0.78. BUN is elevated due to TPN. At this time, her electrolytes are stable. We will get a.m. labs. We will monitor chemistries closely. Continue with IV TPN. From a renal standpoint, she is doing well. MD JOCELYN Finley/AVEL /[id number]
--- NOTE | 2018-08-28 16:30 | NUR ---
Rec'd verbal order per Dr. Bravo, it is ok for pt to transfer out of ICU if ok w/Dr. Omer.
[2018-08-28] MEDS: ENOXAPARIN SOD INJ 40 MG/0.4 ML SYR SC SCH (18:06)
--- NOTE | 2018-08-28 19:30 | NUR ---
Received patient stable in bed, no complaints raised, on TPN and dextrose 5%. Remains NPO, NGT connected to low continuous suction. Has a Pitt, ARMANDO and Carmen drain in place
[2018-08-28] MEDS: CENTRAL TPN FORMULA 1 BAG IV SCH (20:00)
[2018-08-28] MEDS: INSULIN GLARGINE 100 UNITS/ML VIAL SQ SCH (20:47)
[2018-08-29] VITALS (12 sets, daily range): BP systolic 121–149; BP diastolic 47–72
--- NOTE | 2018-08-29 05:00 | NUR ---
PATIENT GIVEN A BED BATH, CHG WIPE DONE, PT STABLE
[2018-08-29 05:19] LABS: BASOPHILS # (AUTO) 0.1 (0.0-0.1); BASOPHILS % 0.6 % (0.0-1.0); EOSINOPHILS # (AUTO) 0.1 (0.0-0.4); HEMATOCRIT 33.2 % (34.2-44.1); HEMOGLOBIN 10.6 g/dL (12.0-16.0); LYMPHOCYTES # (AUTO) 0.6 (1.0-3.2); LYMPHOCYTES % 6.4 % (18.0-39.1); MEAN CORPUSCULAR HEMOGLOBIN 29.6 pg (28-32); MEAN CORPUSCULAR HGB CONC 31.9 g/dL (31-35); MEAN CORPUSCULAR VOLUME 92.7 fL (81-99); MONOCYTES % 11.4 % (4.4-11.3); NEUTROPHILS # (AUTO) 6.9 (2.1-6.9); NEUTROPHILS % 78.2 % (38.7-80.0); PLATELET COUNT 173 x10e3/uL (140-360); RED BLOOD COUNT 3.58 x10e6/uL (3.6-5.1); RED CELL DISTRIBUTION WIDTH 19.6 % (11.7-14.4)
[2018-08-29 05:36] LABS: ANION GAP 8.7 mmol/L (8-16); BLOOD UREA NITROGEN 34 mg/dL (7-26); BUN/CREATININE RATIO 45 (6-25); CALCIUM 8.5 mg/dL (8.4-10.2); CARBON DIOXIDE 20 mmol/L (22-29); CHLORIDE 112 mmol/L (98-107); CREATININE, SERUM 0.76 mg/dL (0.57-1.11); EST GLOMERULAR FILTRATION RATE > 60 ML/MIN (60-); GLUCOSE 181 mg/dL (74-118); MAGNESIUM 1.5 MG/DL (1.3-2.1); POTASSIUM 3.7 mmol/L (3.5-5.1); SODIUM 137 mmol/L (136-145)
[2018-08-29] MEDS: INSULIN LISPRO 100 UNIT/1 ML 3ML VIAL SQ SCH ×4 (06:00→23:54)
[2018-08-29] MEDS: CEFOXITIN 1GM/ D5W 50ML 50 ML IV SCH ×4 (06:00→23:46)
--- NOTE | 2018-08-29 06:34 | Diagnostic Imaging Report ---
EXAMINATION: CHEST SINGLE (PORTABLE) INDICATION: Shortness of breath ^sob COMPARISON: Chest x-ray 08/25/2018 FINDINGS: AP view TUBES and LINES: Endotracheal tube tip approximately 5.4 cm above the rafa. NG/J-tube tip extends out of the field of view. Right IJ catheter tip projects over the lower SVC. LUNGS: Stable central venous congestion and interstitial edema. PLEURA: Small left pleural effusion. No pneumothorax. HEART AND MEDIASTINUM: The cardiomediastinal silhouette is unremarkable. There are atherosclerotic calcifications within the aorta. BONES AND SOFT TISSUES: No acute osseous lesion. Soft tissues are unremarkable. UPPER ABDOMEN: No free air under the diaphragm. IMPRESSION: Interstitial edema and small left pleural effusion with adjacent atelectasis. Signed by: DR. Jakob Love MD on 08/29/2018 6:30 AM
--- NOTE | 2018-08-29 06:55 | NUR ---
Patient handed over stable
[2018-08-29] MEDS: AMMONIUM LACTATE 12% LOTION 225GM BTL TOP SCH ×2 (09:00→17:59)
[2018-08-29] MEDS: DEXTROSE 5% 1,000 ML IV SCH (09:30)
--- NOTE | 2018-08-29 09:30 | NUR ---
PATIENT GIVEN ABOUT 100 CCS OF WATER, TOLERATED WELL. NGT TUBE DRAINAGE IS EQUAL TO WHAT IS PUT IN
--- NOTE | 2018-08-29 10:55 | NUR ---
FAMILY REFUSING [facility] WANTS TO GO HOME WITH HOME HEALTH WHEN READY PER MADELINE WITH DR MCKOY PT DOWNGRADED TODAY TO IMCU STILL NOT PASSING GAS REMAINS NPO TPN
[2018-08-29 11:32] LABS: BAND NEUTROPHILS % (MANUAL) 1 %; EOSINOPHILS % (MANUAL) 2 % (0-7); LYMPHOCYTES % (MANUAL) 5 % (19-48); MONOCYTES % (MANUAL) 12 % (3.4-9.0); NEUTROPHILS % (MANUAL) 80 % (40-74)
[2018-08-29] MEDS: PANTOPRAZOLE 40 MG 10ML VIAL IV SCH (11:38)
--- NOTE | 2018-08-29 14:05 | Progress Note ---
DATE: 08/29/2018 Nephrology Progress Note SUBJECTIVE: The patient is . She is doing well. OBJECTIVE: VITAL SIGNS: Temperature is , pulse 71, respiratory rate 18, blood pressure 121/47, and pulse ox 99% on room air. GENERAL: In no acute distress. Alert and oriented x3. Cooperative on examination. HEENT: Head is normocephalic and atraumatic. Eyes, pupils equal, round, and reactive to light bilaterally. Extraocular movements are intact bilaterally. NECK: Supple. Good range of motion throughout. No evidence of erythema or exudates in the posterior pharynx. Has poor dentition. PULMONARY: Clear to auscultation bilaterally. No wheezing, rales, or rhonchi are appreciated. CARDIOVASCULAR: Positive S1, S2. No murmurs or gallops. ABDOMEN: Soft, nondistended, nontender to palpation. Bowel sounds present. MUSCULOSKELETAL: Strength is 5/5 throughout . NEUROLOGIC: Cranial nerves II through XII are grossly intact . PSYCHIATRIC: Normal affect and mood. EXTREMITIES: No edema. Good range of motion throughout. LABORATORY DATA: White count , hemoglobin 10.6, hematocrit 33, and platelets of 123. Chemistry: Sodium 137, potassium , chloride 112, bicarb 20, anion gap , BUN 34, and creatinine 0.76. . IMPRESSION: 1. Acute kidney injury secondary to hypotension leading to acute tubular necrosis, now resolved. 2. Status post pancreaticoduodenectomy. 3. Hypotension, resolved. 4. Respiratory failure, resolved. PLAN: Continue with same plan of care. She is on IV TPN. We will continue to monitor. MD JOCELYN Finley/MODL /[id number]
--- NOTE | 2018-08-29 14:58 | NUR ---
Nutrition Intervention Note RD Recommendation(s) for Physician: -Continue with current TPN order per MD until diet is advanced and intake is >50%. -Check BMP, Phos, Mag daily; Prealbumin, LFT and TG levels weekly Plan of Care: RD following, monitoring for tolerance and adequacy, TPN Nutrition reason for involvement: Follow up RD Assessment (08/29) Pt was discussed during AM rounds. Pt was awake and alert. Walked with PT this AM. Visited pt in the room. TPN still running at 57mL/hr. K, Na and Mg WNL. No phos for today. Pt denied any nausea or vomiting. Flatus absent. Current PN was appropriate. Will continue to monitor and follow. (08/26) Pt went into OR for repair of large intraluminal and extraluminal clots at jejunojejunostomy from staple line bleeding on 08/25. Pt remained intubated. NGT to suction. No pressor meds. Last phosphorus was drawn on 08/23. No sign of refeeding syndrome with normal K and Na, high Mg. Flatus absent. No BM since 08/21. Current PN was appropriate. Will continue to monitor and follow. (08/23) Pt was discussed during AM rounds. Pt remained severely jaundice. 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 Pt hasnt pass gas since surgery. Pt has been NPO/clear liquid/full liquid x 10days. PN was scheduled to start TPN this evening; order has been placed. Will continue to monitor and follow. (08/20) Chart reviewed. Labs and meds reviewed. BG 120 190. Visited pt in the room. Pt tolerated full liquids well. Possible procedure tomorrow. Pt denied any nausea or vomiting. LBM 08/20. No chewing or swallowing difficulty noted. Will cont to monitor. Please consult as needed. (08/13) Chart reviewed. Labs and meds reviewed. 68yo F, who was admitted for generalized rash and jaundice. GI consulted for possible ERCP. 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 Pt denied chewing/swallowing problems and nausea/vomiting. Pt was NPO; clear liquid was later ordered. Will cont to monitor. Please consult as needed. 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 Will re-evaluate at follow-up as appropriate. Energy intake: <75% of estimated energy requirements for >7 days Weight loss: Unable to evaluate since weights have been inconsistent Fat loss: N/A Muscle loss: N/A Supporting Evidence: Fluid accumulation: unable to evaluate Functional Status: no changes Nutrition Prescription (Diet Order): NPO Estimated Nutritional Needs: Calories: 1210 1375kcal (22-25kcal/kg/d) Weight used: IBW Protein: 83 138g (1.5-2.5g/kg/d) Weight used: IBW Diet Adequacy: meeting calorie needs, meeting protein needs Diet Education Needs Assessment: Diet education indicated, but patient not appropriate for education at this time. Nutrition Care Level: high Nutrition Diagnosis: Inadequate oral intake related to acute illness as evidenced by pt requiring PN as main source of nutrition. Goal: Patient will meet 75-100% of estimated needs by follow up Progress: Goal met Interventions: Composition, Rate, Route Monitoring/Evaluation: Total energy intake, Total protein intake, Formula/Solution, Weight change Signed: Christine Marsh, MS, RD, LD
[2018-08-29 15:16] LABS: BASOPHILS % 0.3 % (0.0-1.0); EOSINOPHILS % 0.3 % (0.0-6.0); HEMATOCRIT 32.4 % (34.2-44.1); HEMOGLOBIN 10.6 g/dL (12.0-16.0); LYMPHOCYTES # (AUTO) 0.6 (1.0-3.2); LYMPHOCYTES % 6.7 % (18.0-39.1); MEAN CORPUSCULAR HEMOGLOBIN 29.9 pg (28-32); MEAN CORPUSCULAR HGB CONC 32.7 g/dL (31-35); MEAN CORPUSCULAR VOLUME 91.5 fL (81-99); MONOCYTES # (AUTO) 0.9 (0.2-0.8); MONOCYTES % 9.7 % (4.4-11.3); NEUTROPHILS # (AUTO) 7.6 (2.1-6.9); NEUTROPHILS % 79.5 % (38.7-80.0); PLATELET COUNT 171 x10e3/uL (140-360); RED BLOOD COUNT 3.54 x10e6/uL (3.6-5.1); RED CELL DISTRIBUTION WIDTH 19.3 % (11.7-14.4)
--- NOTE | 2018-08-29 15:30 | NUR ---
Pt arrived on unit from ICU at this time. Pt is aox4 and able to verbalize, but [place] speaking only. Pt has ARMANDO drain to right lower ext. with serosanguineous drainage. Pinrose drain to left upper quadrant. Pt is NPO but allowed chips and sips. Pt is on TPN at 57ml/hr to right IJ central line.
[2018-08-29 15:34] LABS: ANION GAP 9.3 mmol/L (8-16); BLOOD UREA NITROGEN 32 mg/dL (7-26); BUN/CREATININE RATIO 41 (6-25); CALCIUM 8.4 mg/dL (8.4-10.2); CARBON DIOXIDE 19 mmol/L (22-29); CHLORIDE 111 mmol/L (98-107); CREATININE, SERUM 0.78 mg/dL (0.57-1.11); EST GLOMERULAR FILTRATION RATE > 60 ML/MIN (60-); GLUCOSE 186 mg/dL (74-118); POTASSIUM 3.3 mmol/L (3.5-5.1); SODIUM 136 mmol/L (136-145)
[2018-08-29] MEDS: ENOXAPARIN SOD INJ 40 MG/0.4 ML SYR SC SCH (17:58)
[2018-08-29] MEDS ORDERED: SODIUM CHLORIDE 0.9% 250ML 250 ML ONE (18:15)
--- NOTE | 2018-08-29 19:57 | NUR ---
Received change of shift report from AM nurse. Rounds completed.
[2018-08-29] MEDS: CENTRAL TPN FORMULA 1 BAG IV SCH (20:00)
[2018-08-29] MEDS: INSULIN GLARGINE 100 UNITS/ML VIAL SQ SCH (22:03)
[2018-08-30] VITALS (8 sets, daily range): BP systolic 136–149; BP diastolic 8–63
--- NOTE | 2018-08-30 | NUR ---
Patient in bed with daughter at bedside. Pt portuguese speaking. Denies pain at this time. IV to right neck dry and intact. ARMANDO drain out 400cc bloody fluids.
[2018-08-30] MEDS: CEFOXITIN 1GM/ D5W 50ML 50 ML IV SCH ×3 (05:21→17:23)
[2018-08-30] MEDS: INSULIN LISPRO 100 UNIT/1 ML 3ML VIAL SQ SCH ×3 (05:34→18:00)
[2018-08-30 05:53] LABS: BASOPHILS % 0.4 % (0.0-1.0); EOSINOPHILS # (AUTO) 0.1 (0.0-0.4); HEMATOCRIT 31.8 % (34.2-44.1); HEMOGLOBIN 10.3 g/dL (12.0-16.0); LYMPHOCYTES # (AUTO) 0.9 (1.0-3.2); LYMPHOCYTES % 9.2 % (18.0-39.1); MEAN CORPUSCULAR HEMOGLOBIN 29.6 pg (28-32); MEAN CORPUSCULAR HGB CONC 32.4 g/dL (31-35); MEAN CORPUSCULAR VOLUME 91.4 fL (81-99); MONOCYTES # (AUTO) 0.9 (0.2-0.8); MONOCYTES % 10.1 % (4.4-11.3); NEUTROPHILS # (AUTO) 7.2 (2.1-6.9); NEUTROPHILS % 76.6 % (38.7-80.0); PLATELET COUNT 179 x10e3/uL (140-360); RED BLOOD COUNT 3.48 x10e6/uL (3.6-5.1); RED CELL DISTRIBUTION WIDTH 19.4 % (11.7-14.4)
[2018-08-30 06:14] LABS: ANION GAP 9.7 mmol/L (8-16); BLOOD UREA NITROGEN 34 mg/dL (7-26); BUN/CREATININE RATIO 45 (6-25); CALCIUM 8.3 mg/dL (8.4-10.2); CARBON DIOXIDE 20 mmol/L (22-29); CHLORIDE 111 mmol/L (98-107); CREATININE, SERUM 0.75 mg/dL (0.57-1.11); EST GLOMERULAR FILTRATION RATE > 60 ML/MIN (60-); GLUCOSE 212 mg/dL (74-118); MAGNESIUM 1.6 MG/DL (1.3-2.1); POTASSIUM 3.7 mmol/L (3.5-5.1); SODIUM 137 mmol/L (136-145)
--- NOTE | 2018-08-30 06:39 | NUR ---
Patient resting quitly at this time. No noted pain or discomfort noted. Continue monitor.
[2018-08-30 08:06] LABS: EOSINOPHILS % (MANUAL) 2 % (0-7); LYMPHOCYTES % (MANUAL) 3 % (19-48); MONOCYTES % (MANUAL) 9 % (3.4-9.0); NEUTROPHILS % (MANUAL) 83 % (40-74)
[2018-08-30] MEDS: AMMONIUM LACTATE 12% LOTION 225GM BTL TOP SCH ×2 (09:00→17:00)
[2018-08-30] MEDS: PANTOPRAZOLE 40 MG 10ML VIAL IV SCH (09:23)
--- NOTE | 2018-08-30 11:49 | NUR ---
CALL PLACED OUT TO DR. PATINO AT 1143-RECEIVED CALL BACK FROM DR. PATINO AT 1144. INFORMED DR. PATINO THAT MICHELLE VOMITED SMALL GREEN LIQUID AND HAD A BM WITH BLOOD NOTED. RECEIVED NEW ORDER FOR BODY FLUID AMYLASE.
--- NOTE | 2018-08-30 14:42 | NUR ---
CALL PLACED OUT TO DR. MCKOY REGARDING TPN ORDER- AWAITING CALLBACK.
--- NOTE | 2018-08-30 14:56 | NUR ---
SPOKE WITH JUAN SHRESTHA N.P. REGARDING TPN- NO NEW CHANGES ON TPN; PHARMACY CALLED AND MADE AWARE OF NO CHANGES ON TPN. ORDER TO CONSULT DIETARY. SPOKE WITH VIRAL GAINES, REGARDING TPN- NO CHANGES NEEDED.
[2018-08-30] MEDS: ENOXAPARIN SOD INJ 40 MG/0.4 ML SYR SC SCH (17:23)
--- NOTE | 2018-08-30 19:40 | NUR ---
PATIENT VOMITED 20CC OF GREEN VOMIT (TWO TIMES TODAY)- DR. PATINO AWARE. NO NEW ORDERS GIVEN.
[2018-08-30] MEDS: MORPHINE SULFATE INJ 4 MG/ML INJ 1ML IV PRN (19:46)
[2018-08-30] MEDS: ONDANSETRON HCL INJ 2MG/ML 2ML 2 MG/ML VIAL IV PRN (19:46)
--- NOTE | 2018-08-30 19:54 | NUR ---
PATIENT IS IN STABLE CONDITION WITH NO S/S OF RESPIRATORY DISTRESS. PATIENT C/O ABD PAIN 12/02- IV MORPHINE AND ZOFRAN ADMINISTERED TO PATIENT. ARMANDO DRAIN DRAINED. TPN INFUSING. DR. PATINO INFORMED PATIENT VOMITED TWICE TODAY SMALL AMOUNTS OF GREEN LIQUID AFTER DRINKING WATER AND HAD 2 BM'S DURING DAY SHIFT. BED ALARM ON. DAUGHTER PRESENT IN ROOM. CALL LIGHT IS WITHIN REACH, INSTRUCTED TO CALL FOR ASSISTANCE NEEDED. REPORT GIVEN TO ONCOMING NURSE.
--- NOTE | 2018-08-30 20:02 | NUR ---
PT IS RESTING IN BED WITH DAUGHTER AT BEDSIDE. NO RESPIRATORY DISTRESS NOTED. BED IN THE LOWEST POSITION, LOCKED, AND CALL LIGHT WITHIN REACH. WILL CONTINUE TO MONITOR.
[2018-08-30] MEDS: INSULIN GLARGINE 100 UNITS/ML VIAL SQ SCH (21:00)
[2018-08-30] MEDS: CENTRAL TPN FORMULA 1 BAG IV SCH (21:01)
--- NOTE | 2018-08-30 21:51 | Diagnostic Imaging Report ---
EXAM: CT Abdomen and Pelvis WITH contrast INDICATION: ^POST OP PAIN AND EMESIS COMPARISON: MRCP 08/16/2017. CT abdomen pelvis with 08/12/2018 TECHNIQUE: Abdomen and pelvis were scanned utilizing a multidetector helical scanner from the lung base to the pubic symphysis after administration of IV contrast. Coronal and sagittal reformations were obtained. Routine protocol was performed. Scan was performed when during portal venous phase. IV CONTRAST: 100 mL of Isovue 370 ORAL CONTRAST: Water COMPLICATIONS: None RADIATION DOSE: Total DLP: 716.08 mGy*cm Estimated effective dose: (DLP x 0.015 x size factor) mSv CTDIvol has been reviewed. It is below the limits set by the Radiation Protocol Committee (RPC). FINDINGS: LINES and TUBES: Right quadrant subhepatic biliary drain extending along the superior aspect of the expected pancreatic head. LOWER THORAX: Small bilateral pleural effusions and associated atelectasis. HEPATOBILIARY: No focal hepatic lesions. No biliary ductal dilation. Pneumobilia. GALLBLADDER: No radio-opaque stones or sludge. No wall thickening. SPLEEN: No splenomegaly. PANCREAS: Postoperative changes of a Whipple's procedure. Extensive postoperative changes in the surgical bed. There is a 2.7 x 7.5 cm fluid collection containing air extending inferiorly (series 2, image 48). ADRENALS: No adrenal nodules KIDNEYS/URETERS: Kidneys enhance symmetrically. No hydronephrosis. 1.3 cm right renal cyst. No stones. GI TRACT: No abnormal distention, wall thickening, or evidence of bowel obstruction. Appendix is not visualized. PELVIC ORGANS/BLADDER: Unremarkable. LYMPH NODES: No lymphadenopathy. VESSELS: High-grade narrowing at the portal confluence. PERITONEUM / RETROPERITONEUM: No free air or fluid. BONES: Unremarkable. SOFT TISSUES: Overlying skin dee. IMPRESSION: 1. 2.7 x 7.5 cm fluid collection extending inferiorly from the surgical bed. 2. Small bilateral pleural effusion. Signed by: Dr. Sy Lazaro M.D. on 08/30/2018 9:48 PM
--- NOTE | 2018-08-30 22:07 | NUR ---
SPOKE TO DR PATINO AND REPORTED THE RESULT OF THE CT OF THE ABDOMEN. WILL CONTINUE TO MONITOR.
[2018-08-30] MEDS ORDERED: IOPAMIDOL 370 MG/ML 200 ML INFUS..BTL INJ ONE (22:52)
[2018-08-30] MEDS ORDERED: SODIUM CHLORIDE 0.9% 50ML 50 ML ONE (22:52)
[2018-08-31] VITALS (8 sets, daily range): BP systolic 122–142; BP diastolic 53–59
[2018-08-31] MEDS: CEFOXITIN 1GM/ D5W 50ML 50 ML IV SCH ×2 (00:13→05:36)
[2018-08-31] MEDS: INSULIN LISPRO 100 UNIT/1 ML 3ML VIAL SQ SCH ×4 (00:20→17:54)
[2018-08-31] MEDS: ONDANSETRON HCL INJ 2MG/ML 2ML 2 MG/ML VIAL IV PRN ×2 (03:25→11:31)
[2018-08-31] MEDS: PANTOPRAZOLE 40 MG 10ML VIAL IV SCH ×2 (04:09→16:16)
[2018-08-31 06:32] LABS: BASOPHILS # (AUTO) 0.1 (0.0-0.1); BASOPHILS % 0.4 % (0.0-1.0); EOSINOPHILS % 0.1 % (0.0-6.0); HEMATOCRIT 31.3 % (34.2-44.1); HEMOGLOBIN 10.2 g/dL (12.0-16.0); LYMPHOCYTES # (AUTO) 0.9 (1.0-3.2); MEAN CORPUSCULAR HEMOGLOBIN 30.1 pg (28-32); MEAN CORPUSCULAR HGB CONC 32.6 g/dL (31-35); MEAN CORPUSCULAR VOLUME 92.3 fL (81-99); MONOCYTES # (AUTO) 1.1 (0.2-0.8); MONOCYTES % 7.9 % (4.4-11.3); NEUTROPHILS # (AUTO) 11.1 (2.1-6.9); NEUTROPHILS % 82.8 % (38.7-80.0); PLATELET COUNT 195 x10e3/uL (140-360); RED BLOOD COUNT 3.39 x10e6/uL (3.6-5.1)
[2018-08-31 06:58] LABS: ALANINE AMINOTRANSFERASE 62 IU/L (0-55); ALBUMIN 1.5 g/dL (3.5-5.0); ALBUMIN/GLOBULIN RATIO 0.4 (0.8-2.0); ALKALINE PHOSPHATASE 281 IU/L (40-150); ANION GAP 9.9 mmol/L (8-16); BLOOD UREA NITROGEN 35 mg/dL (7-26); BUN/CREATININE RATIO 38 (6-25); CALCIUM 8.3 mg/dL (8.4-10.2); CARBON DIOXIDE 19 mmol/L (22-29); CHLORIDE 112 mmol/L (98-107); CREATININE, SERUM 0.91 mg/dL (0.57-1.11); EST GLOMERULAR FILTRATION RATE > 60 ML/MIN (60-); GLUCOSE 271 mg/dL (74-118); LIPASE 8 U/L (8-78); POTASSIUM 3.9 mmol/L (3.5-5.1); SODIUM 137 mmol/L (136-145)
--- NOTE | 2018-08-31 07:30 | NUR ---
PATIENT IN STABLE CONDITION WITH NO S/S OF RESPIRATORY DISTRESS. NO PAIN VOICED. TELEMETRY APPLIED. ARMANDO TO RQ AND ANIBAL TO LQ- DRAINING NOTED IN ARMANDO DRAIN. DAUGHTER PRESENT IN ROOM. TPN INFUSING. CALL LIGHT IS WITHIN REACH, INSTRUCTED TO CALL FOR ASSISTANCE NEEDED.
[2018-08-31] MEDS: AMMONIUM LACTATE 12% LOTION 225GM BTL TOP SCH ×2 (07:38→16:06)
[2018-08-31] MEDS: PIPER-TAZ 3.375 GM 50 ML IV SCH ×2 (11:26→17:52)
[2018-08-31] MEDS: MORPHINE SULFATE INJ 4 MG/ML INJ 1ML IV PRN (16:15)
[2018-08-31] MEDS: ENOXAPARIN SOD INJ 40 MG/0.4 ML SYR SC SCH (16:16)
--- NOTE | 2018-08-31 19:03 | NUR ---
PATIENT VOMITED 30CC TODAY (ONCE) AND DR. PATINO WAS MADE AWARE. PATIENT AND PATIENT'S VITALS ARE STABLE.
--- NOTE | 2018-08-31 19:04 | NUR ---
PATIENT IS RESTING IN BED- IN STABLE CONDITION WITH NO S/S OF RESPIRATORY DISTRESS. NO PAIN VOICED. TELEMETRY APPLIED. ARMANDO DRAINING. TPN INFUSING. DAUGHTER PRESENT IN ROOM. CALL LIGHT IS WITHIN REACH, INSTRUCTED TO CALL FOR ASSISTANCE NEEDED. REPORT GIVEN TO ONCOMING NURSE.
[2018-08-31] MEDS: CENTRAL TPN FORMULA 1 BAG IV SCH (20:18)
[2018-08-31] MEDS: INSULIN GLARGINE 100 UNITS/ML VIAL SQ SCH (20:19)
[2018-08-31 21:22] LABS: CLARITY,URINE SL CLOUDY (CLEAR); COLOR,URINE AMBER (YELLOW)
[2018-08-31 21:23] LABS: LEUKOCYTE ESTERASE ,URINE NEGATIVE (NEGATIVE); NITRITE,URINE NEGATIVE (NEGATIVE); PROTEIN,URINE DIPSTICK 2+ (NEGATIVE)
[2018-08-31 21:24] LABS: BILIRUBIN,URINE 2+ (NEGATIVE); KETONES,URINE TRACE (NEGATIVE); URINE UROBILINOGEN 1 mg/dL (0.2 - 1)
[2018-08-31 21:25] LABS: BACTERIA,URINE MODERATE /HPF; EPITHELIAL CELLS,URINE MODERATE /LPF; MUCUS,URINE FEW (RARE); RBC,URINE >50 /HPF (0-5)
[2018-09-01] VITALS (8 sets, daily range): BP systolic 112–151; BP diastolic 49–74
[2018-09-01] MEDS: PIPER-TAZ 3.375 GM 50 ML IV SCH ×5 (00:21→23:37)
[2018-09-01] MEDS: INSULIN LISPRO 100 UNIT/1 ML 3ML VIAL SQ SCH ×5 (00:22→23:38)
[2018-09-01] MEDS: PANTOPRAZOLE 40 MG 10ML VIAL IV SCH ×2 (03:22→15:18)
[2018-09-01 06:28] LABS: BASOPHILS # (AUTO) 0.1 (0.0-0.1); BASOPHILS % 0.3 % (0.0-1.0); EOSINOPHILS # (AUTO) 0.1 (0.0-0.4); EOSINOPHILS % 0.4 % (0.0-6.0); HEMATOCRIT 30.4 % (34.2-44.1); HEMOGLOBIN 9.9 g/dL (12.0-16.0); LYMPHOCYTES # (AUTO) 1.2 (1.0-3.2); LYMPHOCYTES % 7.3 % (18.0-39.1); MEAN CORPUSCULAR HEMOGLOBIN 30.1 pg (28-32); MEAN CORPUSCULAR HGB CONC 32.6 g/dL (31-35); MEAN CORPUSCULAR VOLUME 92.4 fL (81-99); MONOCYTES # (AUTO) 1.2 (0.2-0.8); MONOCYTES % 7.5 % (4.4-11.3); NEUTROPHILS # (AUTO) 13.6 (2.1-6.9); NEUTROPHILS % 82.6 % (38.7-80.0); PLATELET COUNT 210 x10e3/uL (140-360); RED BLOOD COUNT 3.29 x10e6/uL (3.6-5.1); RED CELL DISTRIBUTION WIDTH 20.4 % (11.7-14.4)
[2018-09-01 07:00] LABS: ANION GAP 10.7 mmol/L (8-16); BLOOD UREA NITROGEN 36 mg/dL (7-26); BUN/CREATININE RATIO 46 (6-25); CALCIUM 8.4 mg/dL (8.4-10.2); CARBON DIOXIDE 18 mmol/L (22-29); CHLORIDE 112 mmol/L (98-107); CREATININE, SERUM 0.79 mg/dL (0.57-1.11); EST GLOMERULAR FILTRATION RATE > 60 ML/MIN (60-); GLUCOSE 206 mg/dL (74-118); PHOSPHORUS 2.8 MG/DL (2.3-4.7); POTASSIUM 3.7 mmol/L (3.5-5.1); SODIUM 137 mmol/L (136-145)
--- NOTE | 2018-09-01 07:12 | NUR ---
PATIENT IS AWAKE, ALERT, AND IN STABLE CONDITION WITH NO S/S OF RESPIRATORY DISTRESS. PATIENT DENIES ANY PAIN. TELEMETRY APPLIED. ARMANDO DRAIN INTACT AND DRAINING. ANIBAL INTACT- NO DRAINAGE NOTED. TPN INFUSING. DAUGHTER PRESENT IN ROOM. CALL LIGHT IS WITHIN REACH, INSTRUCTED TO CALL FOR ASSISTANCE NEEDED.
[2018-09-01] MEDS: AMMONIUM LACTATE 12% LOTION 225GM BTL TOP SCH ×2 (08:33→16:06)
[2018-09-01] MEDS: ONDANSETRON HCL INJ 2MG/ML 2ML 2 MG/ML VIAL IV PRN (11:55)
--- NOTE | 2018-09-01 12:52 | NUR ---
CALL PLACED OUT TO DR. PATINO REGARDING UPDATE ON PATIENT'S CONDITION- AWAITING CALLBACK. PATIENT VOMITED 200CC OF GREEN LIQUID AFTER MOVING BACK INTO BED. PATIENT REMAINS IN STABLE CONDITION.
--- NOTE | 2018-09-01 14:40 | Diagnostic Imaging Report ---
Exam: KUB - 2 views. Clinical History: Vomiting. Comparison: CT abdomen/pelvis 08/30/2018. Findings: Exam is somewhat limited by soft tissue attenuation. Surgical dee project over the bilateral abdomen. There is a right-sided surgical drain which terminates in the upper mid abdomen. Nonobstructive bowel gas pattern. Impression: Nonobstructive bowel gas pattern. Postsurgical changes with surgical drain overlying the upper midline abdomen. Signed by: Dr. Serge Virk MD on 09/01/2018 2:37 PM
--- NOTE | 2018-09-01 16:35 | NUR ---
Visit made by the Spiritual Care Department Pastoral Visitor, Kaleb Cortez. PV provided pastoral presence, hospitality, and supportive listening. Pastoral Visitor informed pt/family of the scope of [employer] Com[employer]itor Services and availability. DOMONIQUE PICHARDO Measurement Specialist Spiritual Care Department O: [phone] Pager: [phone] ([phone] number calling from)
[2018-09-01] MEDS: ENOXAPARIN SOD INJ 40 MG/0.4 ML SYR SC SCH (17:37)
--- NOTE | 2018-09-01 19:21 | NUR ---
PATIENT IN STABLE CONDITION WITH NO S/S OF RESPIRATORY DISTRESS. NO PAIN VOICED. TPN INFUSING. ARMANDO DRAIN AND ANIBAL INTACT; ARMANDO DRAINING. DAUGHTER PRESENT IN ROOM. PATIENT'S FEET ELEVATED PER PILLOW. CALL LIGHT IS WITHIN REACH, INSTRUCTED TO CALL FOR ASSISTANCE NEEDED. REPORT GIVEN TO ONCOMING NURSE.
[2018-09-01] MEDS: CENTRAL TPN FORMULA 1 BAG IV SCH (20:44)
[2018-09-01] MEDS: INSULIN GLARGINE 100 UNITS/ML VIAL SQ SCH (20:44)
[2018-09-01] MEDS: METOCLOPRAMIDE HCL 10 MG/2ML VIAL IV SCH (21:22)
--- NOTE | 2018-09-01 22:40 | NUR ---
PER DR Jim TERRY TRANSDERM SCOP PATCH 1.5MG 72H. WILL CONTINUE TO MONITOR.
[2018-09-01] MEDS: SCOPOLAMINE 1.5 MG PATCH TOP SCH (22:53)
[2018-09-02] VITALS (7 sets, daily range): BP systolic 106–147; BP diastolic 41–68
[2018-09-02] MEDS: MORPHINE SULFATE INJ 4 MG/ML INJ 1ML IV PRN ×2 (00:46→22:23)
[2018-09-02] MEDS: ONDANSETRON HCL INJ 2MG/ML 2ML 2 MG/ML VIAL IV PRN ×2 (00:46→17:55)
[2018-09-02] MEDS: PANTOPRAZOLE 40 MG 10ML VIAL IV SCH ×2 (03:08→15:45)
[2018-09-02] MEDS: METOCLOPRAMIDE HCL 10 MG/2ML VIAL IV SCH ×3 (05:49→21:10)
[2018-09-02] MEDS: PIPER-TAZ 3.375 GM 50 ML IV SCH ×3 (05:49→18:00)
[2018-09-02] MEDS: INSULIN LISPRO 100 UNIT/1 ML 3ML VIAL SQ SCH ×3 (05:52→18:00)
[2018-09-02 07:06] LABS: HEMATOCRIT 30.4 % (34.2-44.1); HEMOGLOBIN 9.6 g/dL (12.0-16.0); MEAN CORPUSCULAR HGB CONC 31.6 g/dL (31-35); PLATELET COUNT 212 x10e3/uL (140-360); RED CELL DISTRIBUTION WIDTH 20.8 % (11.7-14.4)
[2018-09-02 07:50] LABS: AMYLASE 12 U/L (25-125); ANION GAP 10.6 mmol/L (8-16); BLOOD UREA NITROGEN 35 mg/dL (7-26); BUN/CREATININE RATIO 45 (6-25); CALCIUM 8.4 mg/dL (8.4-10.2); CARBON DIOXIDE 18 mmol/L (22-29); CHLORIDE 116 mmol/L (98-107); CREATININE, SERUM 0.78 mg/dL (0.57-1.11); EST GLOMERULAR FILTRATION RATE > 60 ML/MIN (60-); GLUCOSE 223 mg/dL (74-118); POTASSIUM 3.6 mmol/L (3.5-5.1); SODIUM 141 mmol/L (136-145)
--- NOTE | 2018-09-02 08:00 | NUR ---
PT UP IN BED AWAKE ,ASSISTED UP TO CHAIR,DR PATINO HERE.
[2018-09-02 08:18] LABS: PHOSPHORUS 2.9 MG/DL (2.3-4.7)
--- NOTE | 2018-09-02 10:00 | NUR ---
ASSISTED PT BACK TO BED,TOLERATED WELL.PIN MATTHEW DRAIN REMOVED ORDERED,COVERED WITH 4X4 MN AMT DRAINAGE
[2018-09-02] MEDS: AMMONIUM LACTATE 12% LOTION 225GM BTL TOP SCH ×2 (11:00→17:00)
[2018-09-02] MEDS ORDERED: CENTRAL TPN FORMULA 1 BAG IV SCH ×2 (11:30→20:00)
--- NOTE | 2018-09-02 13:00 | NUR ---
pt ambulated pt in garcia tolerated well.
--- NOTE | 2018-09-02 14:51 | NUR ---
20 DAY MCR RECERT PLACED ON FRONT OF CHART FOR DR MCKOY TO SIGN PT UNABLE TO TOLERATE PO THIS WEEKEND BACK TO NPO TPN
[2018-09-02 15:19] LABS: BASOPHILS # (AUTO) 0.1 (0.0-0.1); BASOPHILS % 0.5 % (0.0-1.0); EOSINOPHILS # (AUTO) 0.1 (0.0-0.4); EOSINOPHILS % 0.4 % (0.0-6.0); HEMOGLOBIN 10.4 g/dL (12.0-16.0); LYMPHOCYTES # (AUTO) 1.1 (1.0-3.2); LYMPHOCYTES % 7.1 % (18.0-39.1); MEAN CORPUSCULAR HEMOGLOBIN 30.4 pg (28-32); MEAN CORPUSCULAR HGB CONC 31.5 g/dL (31-35); MEAN CORPUSCULAR VOLUME 96.5 fL (81-99); MONOCYTES # (AUTO) 0.7 (0.2-0.8); MONOCYTES % 4.3 % (4.4-11.3); NEUTROPHILS % 86.2 % (38.7-80.0); PLATELET COUNT 236 x10e3/uL (140-360); RED BLOOD COUNT 3.42 x10e6/uL (3.6-5.1); RED CELL DISTRIBUTION WIDTH 21.1 % (11.7-14.4)
[2018-09-02] MEDS: ENOXAPARIN SOD INJ 40 MG/0.4 ML SYR SC SCH (17:00)
--- NOTE | 2018-09-02 17:49 | Diagnostic Imaging Report ---
Examination: Single AP view of the chest. COMPARISON: Single chest 08/29/2018 INDICATION: Suspected pneumonia. IMPRESSION: 1. Lines and Tubes: Unchanged right-sided IJ central line with distal tip projecting in the proximal SVC. Previously visualized enteric tube has been removed. 2. Lungs are well-inflated. No definite consolidation. Bilateral perihilar interstitial opacities, likely reflecting mild interstitial edema/fluid overload. 3. Stable enlargement of the cardiac silhouette. Central pulmonary venous congestion. 4. No acute bony abnormalities. Degenerative changes of the thoracic spine. Signed by: Dr. Sebastian Lauren M.D. on 09/02/2018 5:45 PM
--- NOTE | 2018-09-02 18:05 | NUR ---
pt up in chair denies pain,c/o nausea medicated
--- NOTE | 2018-09-02 19:15 | NUR ---
patient received awake, alert, lying quietly in bed. no c/o pain noted. tpn infusing without difficulty. dressing to abd remains c,d, i. pm assessment complete. patient instructed to call for assistance when needed.
[2018-09-02] MEDS: INSULIN GLARGINE 100 UNITS/ML VIAL SQ SCH (21:00)
--- NOTE | 2018-09-02 22:23 | NUR ---
patient medicated with morphine 2 mg ivp for c/o abd pain 01/01 at this time.
[2018-09-03] VITALS (7 sets, daily range): BP systolic 127–134; BP diastolic 53–68
--- NOTE | 2018-09-03 02:30 | NUR ---
patient oob to bsc with assistance. patient voids tea colored urine to bsc. no c/o pain noted at this time. tpn continues to infuse without difficulty. 0300 labs collected at this time. daughter remains at the bedside.
[2018-09-03 03:05] LABS: BASOPHILS # (AUTO) 0.1 (0.0-0.1); BASOPHILS % 0.3 % (0.0-1.0); EOSINOPHILS # (AUTO) 0.1 (0.0-0.4); EOSINOPHILS % 0.5 % (0.0-6.0); HEMATOCRIT 31.4 % (34.2-44.1); HEMOGLOBIN 10.1 g/dL (12.0-16.0); LYMPHOCYTES # (AUTO) 1.9 (1.0-3.2); MEAN CORPUSCULAR HGB CONC 32.2 g/dL (31-35); MONOCYTES % 6.1 % (4.4-11.3); NEUTROPHILS # (AUTO) 12.7 (2.1-6.9); NEUTROPHILS % 79.7 % (38.7-80.0); PLATELET COUNT 257 x10e3/uL (140-360); RED BLOOD COUNT 3.37 x10e6/uL (3.6-5.1); RED CELL DISTRIBUTION WIDTH 20.9 % (11.7-14.4)
[2018-09-03] MEDS: PANTOPRAZOLE 40 MG 10ML VIAL IV SCH ×2 (03:07→15:45)
[2018-09-03 03:15] LABS: MEAN CORPUSCULAR VOLUME 93.2 fL (81-99)
[2018-09-03 03:23] LABS: ANION GAP 10.5 mmol/L (8-16); BLOOD UREA NITROGEN 34 mg/dL (7-26); BUN/CREATININE RATIO 41 (6-25); CALCIUM 8.6 mg/dL (8.4-10.2); CARBON DIOXIDE 17 mmol/L (22-29); CHLORIDE 115 mmol/L (98-107); CREATININE, SERUM 0.82 mg/dL (0.57-1.11); EST GLOMERULAR FILTRATION RATE > 60 ML/MIN (60-); GLUCOSE 184 mg/dL (74-118); MAGNESIUM 1.9 MG/DL (1.3-2.1); POTASSIUM 3.5 mmol/L (3.5-5.1); SODIUM 139 mmol/L (136-145)
--- NOTE | 2018-09-03 04:30 | NUR ---
Dr. Zaragoza here to see patient. Dr. Zaragoza made aware of patients reaction to zithromax. Dr. Zaragoza will d/c this medication this am. Addendum: 09/03/18 at 0432 by Gretta Reyes RN error --wrong patient.
[2018-09-03] MEDS: METOCLOPRAMIDE HCL 10 MG/2ML VIAL IV SCH ×3 (05:05→21:48)
[2018-09-03] MEDS: PIPER-TAZ 3.375 GM 50 ML IV SCH ×5 (05:05→23:38)
[2018-09-03] MEDS: INSULIN LISPRO 100 UNIT/1 ML 3ML VIAL SQ SCH ×5 (05:59→23:39)
--- NOTE | 2018-09-03 07:25 | NUR ---
PT UP IN BED DENIES PAIN NO DISTRESS NOTED,ARMANDO DRAIN IN PLACE,SEROUS DRAINAGE,DRSG CD&I
[2018-09-03] MEDS: ONDANSETRON HCL INJ 2MG/ML 2ML 2 MG/ML VIAL IV PRN (11:08)
--- NOTE | 2018-09-03 11:08 | NUR ---
PHYSICAL THERAPY HERE ,PT VOMITED BILE COLORED EMESIS,MEDICATED.
[2018-09-03] MEDS: AMMONIUM LACTATE 12% LOTION 225GM BTL TOP SCH ×2 (11:20→17:00)
--- NOTE | 2018-09-03 12:43 | NUR ---
ORDER FOR [facility] REC'D PT SIGNED CONSENT FOR KB[employer] USED MOT SIGNED AND IN ENVELOPE AT DESK SUSANA WITH FELICIA NOTIFIED OF CONSULT PLAN DC TODAY
--- NOTE | 2018-09-03 13:30 | NUR ---
SPOKE WITH DR PATINO INFORMED OF NAUSEA AND VOMITING,CT SCAN ORDETED.
[2018-09-03] MEDS ORDERED: DIATRIZOATE MEGL/DIATRIZOA SOD 30 ML BTL PO ONE (14:27)
[2018-09-03 16:40] LABS: CLARITY,URINE HAZY (CLEAR); COLOR,URINE BROWN (YELLOW); LEUKOCYTE ESTERASE ,URINE TRACE (NEGATIVE); NITRITE,URINE NEGATIVE (NEGATIVE)
[2018-09-03 16:41] LABS: BILIRUBIN,URINE 2+ (NEGATIVE); KETONES,URINE TRACE (NEGATIVE); PROTEIN,URINE DIPSTICK 2+ (NEGATIVE); URINE UROBILINOGEN 1 mg/dL (0.2 - 1)
[2018-09-03 16:48] LABS: BACTERIA,URINE MANY /HPF
--- NOTE | 2018-09-03 16:49 | NUR ---
DC ON HOLD PT HAS VOMITED X [address] ABD ORDERED SUSANA NOTIFIED
--- NOTE | 2018-09-03 17:50 | Diagnostic Imaging Report ---
EXAM: CT Abdomen and Pelvis WITHOUT contrast INDICATION: ^R/O OBSTRUCTION ORAL CONTRAST ONLY^Y. UTI. Jaundice. COMPARISON: CT abdomen and pelvis 08/30/2018. TECHNIQUE: Abdomen and pelvis were scanned utilizing a multidetector helical scanner from the lung base to the pubic symphysis without administration of IV contrast. Absence of intravenous contrast decreases sensitivity for detection of focal lesions and vascular pathology. Coronal and sagittal reformations were obtained. Routine protocol was performed. IV CONTRAST: None ORAL CONTRAST: Gastrografin COMPLICATIONS: None RADIATION DOSE: Total DLP: 760.32 mGy*cm Estimated effective dose: (DLP x 0.015 x size factor) mSv CTDIvol has been reviewed. It is below the limits set by the Radiation Protocol Committee (RPC). Dose modulation, iterative reconstruction, and/or weight based adjustment of the mA/kV was utilized to reduce the radiation dose to as low as reasonably achievable. FINDINGS: LINES and TUBES: Right quadrant subhepatic biliary drain extending along the superior aspect of the expected pancreatic head. LOWER THORAX: Slight increased small bilateral pleural effusions. Bilateral lower lobe atelectasis is unchanged. Increasing groundglass opacities and atelectasis in the in the right middle and lingula, consistent with mild edema. HEPATOBILIARY: No focal hepatic lesions. No biliary ductal dilation. Previous pneumobilia has resolved.. GALLBLADDER: There are cholecystectomy clips. SPLEEN: No splenomegaly. PANCREAS: See below in GI tract section. Postoperative changes of a Whipple's procedure. Extensive postoperative changes in the surgical bed. There is a 2.7 x 7.5 cm fluid collection containing air extending inferiorly (series 2, image 48). ADRENALS: No adrenal nodules KIDNEYS/URETERS: Kidneys enhance symmetrically. No hydronephrosis. 1.3 cm right renal cyst. No stones. GI TRACT: Previous surgery on the gastric antrum, which was previously described as Whipple's procedure was inaccurate. With positive oral contrast, there is better delineation of the GI tract. There are post operative changes of distal gastrectomy with direct re-anastomosis to a small bowel loop. There is postoperative wall edema. This courses to the expected location of the first and second segment of the duodenum. However, this then extends anteriorly, instead of crossing to the left. In the area where the duodenum should cross to the left of the midline, there are 2 bowel sutures and significant phlegmon and inflammatory changes. The pancreatic head at this point is not well visualized and was previously interpreted as having a Whipple's procedure. 2.7 x 6.8 cm gas containing structure extending inferiorly from the pancreatic head along the anterior aspect of the mesentery (series 2, 51) remains unchanged. Previously 2.7 x 7.5 cm. Additional small bowel sutures in the left abdomen remain present. Oral contrast is seen passing into the ileum and portions of the ascending colon with no evidence of obstruction. Appendix is not visualized. PELVIC ORGANS/BLADDER: Unremarkable. LYMPH NODES: No lymphadenopathy. VESSELS: High-grade narrowing at the portal confluence. PERITONEUM / RETROPERITONEUM: No free air or fluid. BONES: Unremarkable. SOFT TISSUES: Overlying skin dee. IMPRESSION: 1. Unchanged 2.7 x 6.8 cm fluid collection extending inferiorly from the surgical bed. 2. Positive oral contrast extends to the ascending colon without evidence of obstruction. There is post operative wall edema of the gastric antrum. 3. Increasing small bilateral pleural effusion with likely developing edema. 4. Previous pneumobilia has resolved. No definite biliary ductal dilatation. Signed by: Dr. Sy Lazaro M.D. on 09/03/2018 5:46 PM
--- NOTE | 2018-09-03 18:19 | NUR ---
Nutrition Intervention Note RD Recommendation(s) for Physician: -Continue with current TPN order per MD until diet is advanced and intake is >50%. -Check BMP, Phos, Mag daily; Prealbumin, LFT and TG levels weekly Plan of Care: RD following, monitoring for tolerance and adequacy, TPN Nutrition reason for involvement: Follow up RD Assessment (09/03) Pt was discussed during AM rounds. Currently on IV abx, Zofran and Reglan. Per JEANETTE Sharp, pt had nausea and vomited x2 this AM. Visited pt in the room. TPN still running at 57mL/hr. IVF at 5mL/hr. Pt reported feeling hungry and wanted to eat. Flatus present. CT abd/pel pending. Will continue to monitor and follow. (08/29) Pt was discussed during AM rounds. Pt was awake and alert. Walked with PT this AM. Visited pt in the room. TPN still running at 57mL/hr. K, Na and Mg WNL. No phos for today. Pt denied any nausea or vomiting. Flatus absent. Current PN was appropriate. Will continue to monitor and follow. (08/26) Pt went into OR for repair of large intraluminal and extraluminal clots at jejunojejunostomy from staple line bleeding on 08/25. Pt remained intubated. NGT to suction. No pressor meds. Last phosphorus was drawn on 08/23. No sign of refeeding syndrome with normal K and Na, high Mg. Flatus absent. No BM since 08/21. Current PN was appropriate. Will continue to monitor and follow. (08/23) Pt was discussed during AM rounds. Pt remained severely jaundice. 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 Pt hasnt pass gas since surgery. Pt has been NPO/clear liquid/full liquid x 10days. PN was scheduled to start TPN this evening; order has been placed. Will continue to monitor and follow. (08/20) Chart reviewed. Labs and meds reviewed. BG 120 190. Visited pt in the room. Pt tolerated full liquids well. Possible procedure tomorrow. Pt denied any nausea or vomiting. LBM 08/20. No chewing or swallowing difficulty noted. Will cont to monitor. Please consult as needed. (08/13) Chart reviewed. Labs and meds reviewed. 68yo F, who was admitted for generalized rash and jaundice. GI consulted for possible ERCP. 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 Pt was NPO; clear liquid was later ordered. Will cont to monitor. Please consult as needed. 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 Will re-evaluate at follow-up as appropriate. Energy intake: <75% of estimated energy requirements for >7 days Weight loss: Unable to evaluate since weights have been inconsistent Fat loss: N/A Muscle loss: N/A Supporting Evidence: Fluid accumulation: unable to evaluate Functional Status: no changes Nutrition Prescription (Diet Order): NPO Estimated Nutritional Needs: Calories: 1210 1375kcal (22-25kcal/kg/d) Weight used: IBW Protein: 83 138g (1.5-2.5g/kg/d) Weight used: IBW Diet Adequacy: meeting calorie needs, meeting protein needs Diet Education Needs Assessment: Diet education indicated, but patient not appropriate for education at this time. Nutrition Care Level: mod Nutrition Diagnosis: Inadequate oral intake related to acute illness as evidenced by pt requiring PN as main source of nutrition. Goal: Patient will meet 75-100% of estimated needs by follow up Progress: Goal met Interventions: Composition, Rate, Route Monitoring/Evaluation: Total energy intake, Total protein intake, Formula/Solution, Weight change Signed: Christine Marsh, , RD, LD
--- NOTE | 2018-09-03 18:36 | NUR ---
PT TURNED REPOSITIONED FOR COMFORT.TPN INFUSING ,NO C/O PAIN ARMANDO DRAIN IN PLACE.
--- NOTE | 2018-09-03 19:15 | NUR ---
patient received awake, alert, lying quietly in bed. no c/o pain noted. tpn continues to infuse without difficulty. pm assessment complete. family noted at the bedside. patient/family instructed to call for assistance when needed.
[2018-09-03] MEDS: CENTRAL TPN FORMULA 1 BAG IV SCH (20:00)
[2018-09-03] MEDS: INSULIN GLARGINE 100 UNITS/ML VIAL SQ SCH (21:00)
[2018-09-03] MEDS ORDERED: METOCLOPRAMIDE HCL 10 MG/2ML VIAL IV ONE (23:30)
[2018-09-03] MEDS ORDERED: ALBUMIN 25% 25GM 100ML 0.25 GM/ML BTL IV ONE (23:30)
[2018-09-03] MEDS ORDERED: ALBUMIN 25% 12.5GM 50ML 100 ML IV ONE (23:57)
[2018-09-04] VITALS (7 sets, daily range): BP systolic 106–183; BP diastolic 56–77
[2018-09-04] MEDS ORDERED: ALBUMIN 25% 12.5GM 50ML 100 ML IV ONE ×2 (00:31→05:40)
[2018-09-04] MEDS: MORPHINE SULFATE INJ 4 MG/ML INJ 1ML IV PRN (01:20)
--- NOTE | 2018-09-04 01:20 | NUR ---
patient oob to chair for approx 30 minutes. patient back to bed with assistance. patient medicated with morphine 2 mg ivp for c/o abd pain 01/01. will continue to monitor.
[2018-09-04 03:48] LABS: BASOPHILS % 0.3 % (0.0-1.0); EOSINOPHILS # (AUTO) 0.1 (0.0-0.4); EOSINOPHILS % 0.7 % (0.0-6.0); HEMATOCRIT 27.4 % (34.2-44.1); HEMOGLOBIN 8.8 g/dL (12.0-16.0); LYMPHOCYTES # (AUTO) 1.4 (1.0-3.2); MEAN CORPUSCULAR HEMOGLOBIN 30.1 pg (28-32); MEAN CORPUSCULAR HGB CONC 32.1 g/dL (31-35); MEAN CORPUSCULAR VOLUME 93.8 fL (81-99); MONOCYTES % 8.1 % (4.4-11.3); NEUTROPHILS # (AUTO) 10.1 (2.1-6.9); NEUTROPHILS % 78.6 % (38.7-80.0); PLATELET COUNT 245 x10e3/uL (140-360); RED BLOOD COUNT 2.92 x10e6/uL (3.6-5.1); RED CELL DISTRIBUTION WIDTH 20.9 % (11.7-14.4)
[2018-09-04 04:14] LABS: ALANINE AMINOTRANSFERASE 46 IU/L (0-55); ALBUMIN 2.4 g/dL (3.5-5.0); ALBUMIN/GLOBULIN RATIO 0.8 (0.8-2.0); ALKALINE PHOSPHATASE 306 IU/L (40-150); ANION GAP 10.5 mmol/L (8-16); BLOOD UREA NITROGEN 34 mg/dL (7-26); BUN/CREATININE RATIO 43 (6-25); CALCIUM 8.5 mg/dL (8.4-10.2); CARBON DIOXIDE 20 mmol/L (22-29); CHLORIDE 113 mmol/L (98-107); CREATININE, SERUM 0.79 mg/dL (0.57-1.11); EST GLOMERULAR FILTRATION RATE > 60 ML/MIN (60-); GLUCOSE 114 mg/dL (74-118); POTASSIUM 3.5 mmol/L (3.5-5.1); SODIUM 140 mmol/L (136-145)
[2018-09-04] MEDS: METOCLOPRAMIDE HCL 10 MG/2ML VIAL IV SCH ×4 (05:25→23:22)
[2018-09-04] MEDS: PIPER-TAZ 3.375 GM 50 ML IV SCH ×3 (05:25→17:08)
[2018-09-04] MEDS: PANTOPRAZOLE 40 MG 10ML VIAL IV SCH ×2 (05:25→15:20)
[2018-09-04] MEDS: INSULIN LISPRO 100 UNIT/1 ML 3ML VIAL SQ SCH ×3 (05:27→18:01)
[2018-09-04] MEDS: ALBUMIN 25% 25GM 100ML 0.25 GM/ML BTL IV SCH ×2 (06:00→11:55)
--- NOTE | 2018-09-04 07:08 | NUR ---
RECEIVED PATIENT RESTING IN BED. NO ACUTE DISTRESS NOTED. DENIES PAIN OR DISCOMFORT. DAUGHTER AT BEDSIDE. CALL LIGHT WITHIN REACH. BED IN THE LOWEST POSITION.
[2018-09-04] MEDS: AMMONIUM LACTATE 12% LOTION 225GM BTL TOP SCH ×2 (09:00→16:44)
--- NOTE | 2018-09-04 11:58 | NUR ---
NOTIFIED YAMILET CORREA OF RR OF 30, ORDERED A STAT CHEST X-RAY. PATIENT IS NOT IN DISTRESS AT THIS TIME.
[2018-09-04] MEDS ORDERED: LORAZEPAM INJ 2 MG/ML VIAL IV ONE (12:15)
[2018-09-04] MEDS ORDERED: IPRATROPIUM BROMIDE 0.02% 2.5 ML NEB NEB PRN (13:00)
[2018-09-04] MEDS: IPRATROPIUM BROMIDE 0.02% 2.5 ML NEB NEB SCH ×2 (13:00→20:18)
[2018-09-04] MEDS ORDERED: LEVALBUTEROL HCL SOLN NEBU 0.63 MG/3 ML NEB INH PRN (13:00)
[2018-09-04] MEDS: LEVALBUTEROL HCL SOLN NEBU 0.63 MG/3 ML NEB INH SCH ×2 (13:00→20:18)
[2018-09-04] MEDS: FUROSEMIDE INJ 10 MG/ML 4 ML VIAL IV SCH (13:16)
--- NOTE | 2018-09-04 14:21 | NUR ---
RE-ASSESSED PATIENT AFTER ADMINISTRATION OF LASIX, RESPIRATIONS ARE EVEN AND UNLABORED, RR OF 24 AT THIS TIME.
--- NOTE | 2018-09-04 14:22 | Diagnostic Imaging Report ---
EXAMINATION: CHEST SINGLE (PORTABLE) INDICATION: Wheezing, shortness of breath. COMPARISON: Chest radiograph 09/02/[address] abdomen/pelvis 09/03/2018. FINDINGS: TUBES and LINES: Right IJ non tunneled central line terminates in the expected location of the proximal SVC LUNGS: Persistent patchy opacities in the bilateral mid and lower lung zones. Bilateral perihilar and interstitial opacities. PLEURA: Small bilateral pleural effusions, right greater than left. No evidence of pneumothorax. HEART AND MEDIASTINUM: The cardiomediastinal silhouette is unremarkable. Atherosclerotic calcifications of the aortic arch. BONES AND SOFT TISSUES: No acute osseous abnormality. UPPER ABDOMEN: No free air under the diaphragm. IMPRESSION: Findings of moderate pulmonary interstitial edema. Small bilateral pleural effusions, right greater than left. Opacities at the lung bases could reflect alveolar edema and atelectasis. Pneumonia is possible in the appropriate clinical setting. Signed by: Dr. Serge Virk MD on 09/04/2018 2:19 PM
--- NOTE | 2018-09-04 16:54 | NUR ---
PER MADELINE ACCREDITATION SPECIALIST OK TO PUT PATIENT ON EXTERNAL CATHETER (PUREWICK) DUE TO PATIENT GETTING LASIX.
[2018-09-04] MEDS ORDERED: LORAZEPAM INJ 2 MG/ML VIAL IV PRN (17:00)
--- NOTE | 2018-09-04 17:00 | NUR ---
APPLIED EXTERNAL CATHETER TO PATIENT AT THIS TIME.
[2018-09-04] MEDS: ALBUMIN 25% 25GM 100ML 200 ML IV SCH ×2 (17:58→23:33)
--- NOTE | 2018-09-04 18:24 | NUR ---
RECEIVED DC ORDER FROM YAMILET CORREA. PATIENT IS IN STABLE CONDITION. VS WNL. IV LINE TO LEFT WRIST DCD WITH TIP INTACT, PRESSURE APPLIED TO SITE, NO BLEEDING NOTED. DISCHARGE FOLDER ON HAND WITH DC PAPERWORK AND PRESCRIPTIONS IN IT. PATIENT ACCOMPANIED TO PRIVATE AUTO VIA WHEELCHAIR BY STAFF.
[2018-09-04] MEDS: ONDANSETRON HCL INJ 2MG/ML 2ML 2 MG/ML VIAL IV PRN (18:49)
--- NOTE | 2018-09-04 18:49 | NUR ---
PATIENT VOMITED X1 300CC OF GREEN LIQUID. MEDICATED WITH PRN ZOFRAN.
--- NOTE | 2018-09-04 19:20 | NUR ---
REPORT GIVEN TO ONCOMING NURSE, PATIENT IS RESTING IN BED. NO ACUTE DISTRESS NOTED. FAMILY AT BEDSIDE. CALL LIGHT WITHIN REACH. BED IN THE LOWEST POSITION.
[2018-09-04] MEDS: CENTRAL TPN FORMULA 1 BAG IV SCH (20:39)
[2018-09-04] MEDS: ACETAMINOPHEN 325 MG TAB PO PRN (20:50)
[2018-09-04] MEDS: INSULIN GLARGINE 100 UNITS/ML VIAL SQ SCH (21:00)
[2018-09-04] MEDS: SCOPOLAMINE 1.5 MG PATCH TOP SCH (22:30)
[2018-09-05] VITALS (22 sets, daily range): BP systolic 91–185; BP diastolic 53–158
[2018-09-05] MEDS: INSULIN LISPRO 100 UNIT/1 ML 3ML VIAL SQ SCH ×5 (00:41→23:38)
[2018-09-05] MEDS: IPRATROPIUM BROMIDE 0.02% 2.5 ML NEB NEB SCH ×4 (00:45→19:25)
[2018-09-05] MEDS: LEVALBUTEROL HCL SOLN NEBU 0.63 MG/3 ML NEB INH SCH ×4 (00:45→19:25)
[2018-09-05] MEDS: PIPER-TAZ 3.375 GM 50 ML IV SCH ×5 (01:29→23:38)
--- NOTE | 2018-09-05 01:46 | NUR ---
SPOKE TO DR EAN SHRESTHA IN REGARD TO PT BREATHING 32 BREATH PER MINUTE. PER [facility] STAT ABG, CHEST X-RAY, AND CALL DR JUSTICE WITH THE RESULT. WILL CONTINUE TO MONITOR.
[2018-09-05 02:36] LABS: ABG HCO3 19 mmol/L (23-28); ABG PCO2 35 mmHg (41-51); ABG PH 7.33 (7.31-7.41); ABG PO2 81 mmHg (80-105)
--- NOTE | 2018-09-05 03:30 | Diagnostic Imaging Report ---
EXAMINATION: CHEST 2 VIEWS INDICATION: RESPIRATORY DISTRESS COMPARISON: 09/04/2018. FINDINGS: TUBES and LINES: Right IJ central line terminates in the expected location of the proximal SVC, unchanged. LUNGS: Unchanged bilateral pulmonary venous congestion and interstitial edema. Multifocal patchy density particularly in the right upper lobe may represent asymmetric pulmonary edema, however, not excluded superimposed infection. PLEURA: No pneumothorax. Bilateral small pleural effusions. HEART AND MEDIASTINUM: The cardiac silhouette is mildly enlarged. BONES AND SOFT TISSUES: No acute osseous lesion. UPPER ABDOMEN: No free air under the diaphragm. IMPRESSION: Findings consistent with decompensated CHF. Cannot exclude superimposed infection, particularly in the right upper lobe. Signed by: Dr. Moiz Welch M.D. on 09/05/2018 3:27 AM
--- NOTE | 2018-09-05 03:55 | NUR ---
PAGE DR ROBBINS TO REPORT ABG AND CHEST X-RAY. AWAITING CALL BACK. WILL CONTINUE TO MONITOR.
[2018-09-05 04:00] LABS: BASOPHILS % 0.2 % (0.0-1.0); EOSINOPHILS % 0.2 % (0.0-6.0); HEMATOCRIT 25.4 % (34.2-44.1); LYMPHOCYTES % 8.5 % (18.0-39.1); MEAN CORPUSCULAR HEMOGLOBIN 30.1 pg (28-32); MEAN CORPUSCULAR HGB CONC 31.5 g/dL (31-35); MEAN CORPUSCULAR VOLUME 95.5 fL (81-99); MONOCYTES # (AUTO) 1.1 (0.2-0.8); MONOCYTES % 9.3 % (4.4-11.3); NEUTROPHILS # (AUTO) 9.8 (2.1-6.9); NEUTROPHILS % 80.2 % (38.7-80.0); PLATELET COUNT 228 x10e3/uL (140-360); RED BLOOD COUNT 2.66 x10e6/uL (3.6-5.1); RED CELL DISTRIBUTION WIDTH 21.5 % (11.7-14.4)
[2018-09-05] MEDS: PANTOPRAZOLE 40 MG 10ML VIAL IV SCH ×2 (04:08→15:45)
[2018-09-05 04:18] LABS: ANION GAP 14.1 mmol/L (8-16); CALCIUM 9.2 mg/dL (8.4-10.2); CREATININE, SERUM 0.95 mg/dL (0.57-1.11); MAGNESIUM 2.5 MG/DL (1.3-2.1); POTASSIUM 3.1 mmol/L (3.5-5.1)
--- NOTE | 2018-09-05 04:21 | NUR ---
PAGE DR BROWN AGAIN. PER DR BROWN 40MG LASIX ONE TIME DOSE, TRANSFER PT TO ICU, AND PUT PT ON BIPAP. Addendum: 09/05/18 at 0813 by Velvet Mcgee RN NOTIFY DR BROWN THAT THERE WERE NO ICU ROOM AVAILABLE BUT AN IMCU WOULD BE AVAILABLE. PER DR BROWN PUT THE PT WHERE EVER YOU GUYS WANT. WILL CONTINUE TO MONITOR.
[2018-09-05] MEDS ORDERED: FUROSEMIDE INJ 10 MG/ML 4 ML VIAL IV ONE (04:30)
--- NOTE | 2018-09-05 04:32 | NUR ---
PAGE RT THEO AND NOTIFY HER THAT PT HAS ORDER FOR BIPAP. PER THEO SHE WILL BE THERE SHORTLY. WILL CONTINUE TO MONITOR.
[2018-09-05] MEDS: ALBUMIN 25% 25GM 100ML 200 ML IV SCH ×4 (05:27→23:38)
--- NOTE | 2018-09-05 06:05 | NUR ---
PAGE DR BROWN FOR BIPAP SETTING AND PER DR BROWN HE WANTS RT TO CALL HIM. WILL CONTINUE TO MONITOR.
[2018-09-05] MEDS: METOCLOPRAMIDE HCL 10 MG/2ML VIAL IV SCH ×2 (06:08→12:00)
--- NOTE | 2018-09-05 06:35 | NUR ---
WHILE ON MED-SURGE UNIT ACCEPTED CALL FROM DR ROBBINS AND I UPDATED HIM OF CURRENT PATIENT CONDITION AND THE SITUATION. CLARIFIED IF BIPAP WAS ORDERED AND HE CONFIRMED BIPAP TO BE ORDERED TO START AT 12/5 FIO2 50%. ORDERS TO BE PLACED IF NOT ALREADY PLACED
[2018-09-05] MEDS: ONDANSETRON HCL INJ 2MG/ML 2ML 2 MG/ML VIAL IV PRN (06:47)
--- NOTE | 2018-09-05 07:00 | NUR ---
AT 0630 ASSISTED WITH RT PLACING BIPAP ON PATIENT BEFORE TRANSFERRING TO ICU 192. 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 REMOVED BIPAP, MOUTH WAS WIPED THEN IMMEDIATELY ASSESSED PATIENTs LUNG KEENAN, RUL, RML, ELMER HAD STRIDOR AND WHEEZING NOTED AND BOTH BILATERAL LOWER LOBES WERE DIMINISHED, NO COMPLAINTS OF SOB. CLEAN BIPAP THEN PLACED BACK ON PATIENT, WILL CALL RT TO COME ASSESS BIPAP TUBING. PRN ZOFRAN WAS GIVEN. AT 0703 DR PATINO CALLED INFORMED HIM OF PATIENTs CURRENT CONDITION AND PATIENT VOMITED WHILE ON BIPAP. RECEIVED ORDERS FOR CXR TO R/O ASPIRATION AND ORDER KUB, ALSO TO PLACE A 14FR NGT DOWN IF PATIENT VOMITS AGAIN. CXR AND KUB ORDERS WERE PLACED BY LAURA RN. INFORMED ONCOMING DAY NURSE WITH BEDSIDE REPORT ORDERS TO PLACE NGT IF VOMITING OCCURS AGAIN
--- NOTE | 2018-09-05 07:30 | NUR ---
Patient on Bipap / and tolerating well with 02 sats at 98%. Respirations are slightly labored at 28-32 breaths per minute.
--- NOTE | 2018-09-05 08:00 | NUR ---
Dr. Omer here to see patient. Patient complaining of nausea and trying to vomit. Orders received to insert NG tube and 14 Sami inserted to right nare and 400 cc of dark, green secretions obtained when placed to suction. Right ARMANDO draining clear, yellowish pink fluid of consistent moderate amount.
--- NOTE | 2018-09-05 08:18 | Diagnostic Imaging Report ---
EXAMINATION: CHEST SINGLE (PORTABLE) INDICATION: Possible aspiration. COMPARISON: Chest radiograph 09/05/18. FINDINGS: TUBES and LINES: Right IJ central line terminates in the expected location of the proximal SVC, unchanged. LUNGS: There are increasing bilateral perihilar and interstitial opacities as well as more patchy opacities within the right upper lung, left midlung, and bilateral lower lungs. PLEURA: No pneumothorax. Bilateral small pleural effusions. HEART AND MEDIASTINUM: The cardiomediastinal silhouette is mildly enlarged. Atherosclerotic calcifications of the aortic arch. BONES AND SOFT TISSUES: No acute osseous abnormality. UPPER ABDOMEN: No free air under the diaphragm. IMPRESSION: Findings of increasing pulmonary edema. Increasing multifocal patchy opacities may represent alveolar edema or superimposed pneumonia in the appropriate clinical setting. Signed by: Dr. Serge Virk MD on 09/05/2018 8:15 AM
--- NOTE | 2018-09-05 08:19 | Diagnostic Imaging Report ---
EXAM: ABDOMEN-1VIEW (KUB) DATE: 09/05/2018 7:10 AM INDICATION: Jaundice, UTI COMPARISON: CT abdomen/pelvis, 09/03/2018 FINDINGS: Supine view of the abdomen shows a normal distribution of air in the small and large bowel. Small amounts of residual enteric contrast noted from previous CT in the small bowel and rectum. Skin dee are present across the right and left upper abdomen. A soft tissue drain extends into the subhepatic area. Cholecystectomy clips are present. IMPRESSION: 1. No bowel dilatation or evidence for bowel obstruction. 2. Postoperative changes in the upper abdomen. Signed by: Dr. Hugo Hooker M.D. on 09/05/2018 8:15 AM
[2018-09-05] MEDS: FUROSEMIDE INJ 10 MG/ML 4 ML VIAL IV SCH (09:00)
--- NOTE | 2018-09-05 09:20 | NUR ---
Pt transferred from MS3 to ICU due to respiratory issues for higher level of care. Pt will be placed on PT hold and will need new orders to con't PT services.
--- NOTE | 2018-09-05 09:30 | NUR ---
Patient states that she feels better in [place] and denies any abdominal pain or nausea or vomiting. I speak Afghan also. Daughter at bedside.
[2018-09-05] MEDS ORDERED: DEXMEDETOMIDINE HCL 200 MCG in SODIUM CHLORIDE 0.9% 50ML 48 ML IV PRN (10:00)
[2018-09-05] MEDS ORDERED: VANCOMYCIN 1GM/NS 250 ML 250 ML IV ONE (10:00)
[2018-09-05] MEDS: AMMONIUM LACTATE 12% LOTION 225GM BTL TOP SCH ×2 (11:30→17:09)
[2018-09-05] MEDS ORDERED: POTASSIUM CHLORIDE 20MEQ/100ML 200 ML IV ONE (11:45)
[2018-09-05] MEDS: FLUCONAZOLE 200 MG/100 ML 100 ML IV SCH (11:45)
[2018-09-05] MEDS: VANCOMYCIN 1GM/NS 250 ML 250 ML IV SCH (11:45)
[2018-09-05] MEDS: POTASSIUM CHLORIDE 20MEQ/100ML 100 ML IV SCH ×2 (12:00→14:00)
--- NOTE | 2018-09-05 13:00 | NUR ---
Continues on Bipap and tolerating well with 02 sats at 97% and above. Respirations are less labored with rates from 22-36 breaths per minute. Denies any abdominal pain or nausea and no vomiting. NGT continues to drain moderate amount of dark, green liquid secretions to low intermittent suction.
[2018-09-05] MEDS ORDERED: LORAZEPAM INJ 2 MG/ML VIAL IV ONE (17:00)
[2018-09-05] MEDS ORDERED: FUROSEMIDE INJ 10 MG/ML 4 ML VIAL IV SCH (17:00)
--- NOTE | 2018-09-05 17:10 | NUR ---
Dr. Bravo here to see patient. Patient agitated and restless and Ativan 0.5mg IV given as ordered.
[2018-09-05] MEDS ORDERED: HALOPERIDOL LACTATE 5 MG/ML VIAL IV ONE (19:00)
[2018-09-05] MEDS ORDERED: HALOPERIDOL LACTATE 5 MG/ML VIAL IM ONE (19:15)
[2018-09-05] MEDS ORDERED: CENTRAL TPN FORMULA 1 BAG IV SCH (20:00)
--- NOTE | 2018-09-05 20:30 | NUR ---
WAS UNABLE TO CHART IN EMAR WHEN NEW BAG OF PRECEDEX WAS HUNG. PRECEDEX AT 13ML/HR CONTINUES AT SAME RATE PREVIOUS BAG.
[2018-09-05] MEDS: DEXTROSE 50% SYRINGE 50 ML IV PRN ×2 (20:51→23:47)
[2018-09-05] MEDS: INSULIN GLARGINE 100 UNITS/ML VIAL SQ SCH (20:54)
[2018-09-05] MEDS ORDERED: PROMETHAZINE 12.5MG/ NACL 0.9% 12.5 MG/50 ML BAG IV PRN (23:30)
--- NOTE | 2018-09-05 23:30 | NUR ---
STOPPED PRECEDEX AT THIS TIME.
[2018-09-06] VITALS (17 sets, daily range): BP systolic 123–157; BP diastolic 53–76
--- NOTE | 2018-09-06 00:30 | NUR ---
PATIENT BLOOD SUGAR AT 69. D50 GIVEN IS SHOWING ITS EFFECTIVENESS, WILL RECHECK
[2018-09-06] MEDS: LEVALBUTEROL HCL SOLN NEBU 0.63 MG/3 ML NEB INH SCH ×4 (03:10→19:40)
[2018-09-06] MEDS: IPRATROPIUM BROMIDE 0.02% 2.5 ML NEB NEB SCH ×4 (03:10→19:40)
[2018-09-06] MEDS: PANTOPRAZOLE 40 MG 10ML VIAL IV SCH ×2 (04:57→17:11)
[2018-09-06] MEDS: PIPER-TAZ 3.375 GM 50 ML IV SCH ×3 (04:57→19:34)
[2018-09-06] MEDS: INSULIN LISPRO 100 UNIT/1 ML 3ML VIAL SQ SCH ×3 (05:34→19:35)
[2018-09-06 06:43] LABS: BASOPHILS % 0.3 % (0.0-1.0); EOSINOPHILS % 0.1 % (0.0-6.0); HEMATOCRIT 24.7 % (34.2-44.1); LYMPHOCYTES # (AUTO) 0.8 (1.0-3.2); LYMPHOCYTES % 6.6 % (18.0-39.1); MEAN CORPUSCULAR HEMOGLOBIN 30.4 pg (28-32); MEAN CORPUSCULAR HGB CONC 32.4 g/dL (31-35); MEAN CORPUSCULAR VOLUME 93.9 fL (81-99); MONOCYTES # (AUTO) 0.9 (0.2-0.8); NEUTROPHILS # (AUTO) 10.5 (2.1-6.9); NEUTROPHILS % 84.6 % (38.7-80.0); PLATELET COUNT 209 x10e3/uL (140-360); RED BLOOD COUNT 2.63 x10e6/uL (3.6-5.1); RED CELL DISTRIBUTION WIDTH 21.2 % (11.7-14.4)
[2018-09-06 06:57] LABS: IRON 13 ug/dL (50-170); TRANSFERRIN < 70 mg/dL (180-382)
[2018-09-06 07:00] LABS: ANION GAP 13.1 mmol/L (8-16); BILIRUBIN,DIRECT 3.2 mg/dL (0.0-0.5); CALCIUM 9.1 mg/dL (8.4-10.2); CREATININE, SERUM 1.29 mg/dL (0.57-1.11); MAGNESIUM 2.3 MG/DL (1.3-2.1); POTASSIUM 3.1 mmol/L (3.5-5.1)
[2018-09-06 07:13] LABS: FERRITIN 728.35 ng/mL (4.63-204.00)
[2018-09-06 07:48] LABS: FOLATE 17.1 ng/mL (7.0-15.4)
[2018-09-06 08:08] LABS: LYMPHOCYTES % (MANUAL) 5 % (19-48); METAMYELOCYTES % (MANUAL) 1 % (0-0); MONOCYTES % (MANUAL) 5 % (3.4-9.0); MYELOCYTES % (MANUAL) 1 % (0-0); NEUTROPHILS % (MANUAL) 88 % (40-74); PLATELET ESTIMATE ADEQUATE; PLATELET MORPHOLOGY COMMENT FEW GIANT; RBC MORPHOLOGY COMMENT NORMAL
[2018-09-06] MEDS: AMMONIUM LACTATE 12% LOTION 225GM BTL TOP SCH ×2 (09:00→17:11)
[2018-09-06 09:10] LABS: TOTAL IRON BINDING CAPACITY 90 ug/dL (261-478)
[2018-09-06 11:26] LABS: ABG HCO3 21 mmol/L (23-28); ABG PCO2 35 mmHg (41-51); ABG PH 7.39 (7.31-7.41); ABG PO2 67 mmHg (80-105)
[2018-09-06] MEDS: FLUCONAZOLE 200 MG/100 ML 100 ML IV SCH (11:45)
[2018-09-06] MEDS: VANCOMYCIN 1GM/NS 250 ML 250 ML IV SCH (11:45)
--- NOTE | 2018-09-06 12:03 | Diagnostic Imaging Report ---
EXAM: CHEST SINGLE (PORTABLE) DATE: 09/06/2018 10:55 AM INDICATION: Pneumonia COMPARISON: Chest x-ray, 09/05/2018 FINDINGS: Lines and tubes: Stable right IJ catheter extending to the mid SVC. Interval placement of NG tube which extends below the left diaphragm, tip not included on image. Stable mild enlargement of the cardiac silhouette. Increased pulmonary vascular congestion and edema throughout both lungs. Trace pleural effusions. No pneumothorax. Upper abdomen unremarkable. No acute bony abnormality. IMPRESSION: 1. Increased pulmonary vascular congestion and edema throughout both lungs. 2. Interval placement of NG tube extending below left diaphragm. Stable position of right IJ catheter. Signed by: Dr. Hugo Hooker M.D. on 09/06/2018 12:00 PM
[2018-09-06] MEDS ORDERED: POTASSIUM CHLORIDE 20MEQ/100ML 200 ML IV ONE (12:45)
--- NOTE | 2018-09-06 14:49 | NUR ---
Nutrition Intervention Note RD Recommendation(s) for Physician: -Continue with current TPN order per MD until diet is advanced and intake is >50%. -Check BMP, Phos, Mag daily; Prealbumin, LFT and TG levels weekly Plan of Care: RD following, monitoring for tolerance and adequacy, TPN Nutrition reason for involvement: Follow up RD Assessment (09/06) Pt was transferred to ICU for respiratory issue. Currently on BiPAP. NGT to suction, draining some dark liquids. No complains of nausea or vomiting today. Abd X-ray showed some postoperative changes in upper abdomen. TPN continues to run at 57mL/hr. Will continue to monitor and follow. (09/03) Pt was discussed during AM rounds. Currently on IV abx, Zofran and Reglan. Per JEANETTE Sharp, pt had nausea and vomited x2 this AM. Visited pt in the room. TPN still running at 57mL/hr. IVF at 5mL/hr. Pt reported feeling hungry and wanted to eat. Flatus present. CT abd/pel pending. Will continue to monitor and follow. (08/29) Pt was discussed during AM rounds. Pt was awake and alert. Walked with PT this AM. Visited pt in the room. TPN still running at 57mL/hr. K, Na and Mg WNL. No phos for today. Pt denied any nausea or vomiting. Flatus absent. Current PN was appropriate. Will continue to monitor and follow. (08/26) Pt went into OR for repair of large intraluminal and extraluminal clots at jejunojejunostomy from staple line bleeding on 08/25. Pt remained intubated. NGT to suction. No pressor meds. Last phosphorus was drawn on 08/23. No sign of refeeding syndrome with normal K and Na, high Mg. Flatus absent. No BM since 08/21. Current PN was appropriate. Will continue to monitor and follow. (08/23) Pt was discussed during AM rounds. Pt remained severely jaundice. 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 Pt hasnt pass gas since surgery. Pt has been NPO/clear liquid/full liquid x 10days. PN was scheduled to start TPN this evening; order has been placed. Will continue to monitor and follow. (08/20) Chart reviewed. Labs and meds reviewed. BG 120 190. Visited pt in the room. Pt tolerated full liquids well. Possible procedure tomorrow. Pt denied any nausea or vomiting. LBM 08/20. No chewing or swallowing difficulty noted. Will cont to monitor. Please consult as needed. (08/13) Chart reviewed. Labs and meds reviewed. 68yo F, who was admitted for generalized rash and jaundice. GI consulted for possible ERCP. Visited pt in room who denied significant wt loss, denied decrease in appetite RUFFLER. Pt denied chewing/swallowing problems and nausea/vomiting. Pt was NPO; clear liquid was later ordered. Will cont to monitor. Please consult as needed. 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 PMH: Diabetes mellitus and hypertension GI: abdomen large, round, tender, flatus present Skin: no wound pressure noted Labs: (09/06) Na 146 H, K 3.1 L, BUN 38 H, Creatinine 1.29 H, Mg 2.3 H, iron 13 L, TIBC 90 L, transferring <70 L, ferritin 728 H (09/03) BUN 34 H, Glucose 99 240 H (08/29) BUN 34 H, Glucose 180 246 H (08/26) BUN 40 H, Glucose 100 - 190+, Mg 2.4 H (08/23) Na 135 L, glucose 130 220, Ca 8.1 L, phos 4.8 H, Meds: abx, protonix Ht: 64in Wt: 188.44lb; 196.19lb; 191lb; 193.5lb; 198.13lb; 219.38lb; 206.13lb BMI: 32.8kg/m2 IBW: 120lb Malnutrition Evaluation (08/24/2018) The patient does not meet criteria for a specified degree of malnutrition at this time. Will re-evaluate at follow-up as appropriate. Energy intake: <75% of estimated energy requirements for >7 days Weight loss: Unable to evaluate since weights have been inconsistent Fat loss: N/A Muscle loss: N/A Supporting Evidence: Fluid accumulation: unable to evaluate Functional Status: no changes Nutrition Prescription (Diet Order): NPO Estimated Nutritional Needs: Calories: 1210 1375kcal (22-25kcal/kg/d) Weight used: IBW Protein: 83 138g (1.5-2.5g/kg/d) Weight used: IBW Diet Adequacy: meeting calorie needs, meeting protein needs Diet Education Needs Assessment: Diet education indicated, but patient not appropriate for education at this time. Nutrition Care Level: mod Nutrition Diagnosis: Inadequate oral intake related to acute illness as evidenced by pt requiring PN as main source of nutrition. Goal: Patient will meet 75-100% of estimated needs by follow up Progress: Goal met Interventions: Composition, Rate, Route Monitoring/Evaluation: Total energy intake, Total protein intake, Formula/Solution, Weight change Signed: Christine Marsh MS, RD, LD
[2018-09-06] MEDS: FUROSEMIDE INJ 10 MG/ML 4 ML VIAL IV SCH ×2 (17:11→22:09)
[2018-09-06] MEDS ORDERED: POTASSIUM CHLORIDE 20MEQ/100ML 100 ML ONE (17:17)
--- NOTE | 2018-09-06 19:30 | NUR ---
UNABLE TO CHART THAT NEW BAG OF PRECEDEX HUNG CONTINUING AT SAME RATE AT 13ML/HR.
[2018-09-06] MEDS ORDERED: CENTRAL TPN FORMULA 1 BAG IV SCH (20:00)
--- NOTE | 2018-09-06 21:00 | NUR ---
AT 1900 RECEIVED BEDSIDE REPORT FROM LILLIAN REID. PATIENT TEMP AT THIS TIME 102.6 AX. LILLIAN INFORMED ME THAT HE HAD GIVEN TYLENOL EARLIER FOR ELEVATED TEMP AND THAT IT WAS NOT TIME FOR TYLENOL TO BE GIVEN YET. SO ICE PACKS PLACED UNDERARMS. AND TEMP TAKEN EVERY HOUR TILL WNL.
[2018-09-06] MEDS: MORPHINE SULFATE INJ 4 MG/ML INJ 1ML IV PRN (21:33)
[2018-09-06] MEDS: ONDANSETRON HCL INJ 2MG/ML 2ML 2 MG/ML VIAL IV PRN (21:33)
--- NOTE | 2018-09-06 23:50 | NUR ---
PRECEDEX TURNED OFF AT THIS TIME
[2018-09-06] MEDS: DEXTROSE 50% SYRINGE 50 ML IV PRN (23:55)
[2018-09-07] VITALS (21 sets, daily range): BP systolic 115–141; BP diastolic 44–74
[2018-09-07] MEDS: PIPER-TAZ 3.375 GM 50 ML IV SCH ×4 (00:06→18:18)
[2018-09-07] MEDS: IPRATROPIUM BROMIDE 0.02% 2.5 ML NEB NEB SCH ×4 (02:00→19:11)
[2018-09-07] MEDS: LEVALBUTEROL HCL SOLN NEBU 0.63 MG/3 ML NEB INH SCH ×4 (02:00→19:11)
[2018-09-07] MEDS: PANTOPRAZOLE 40 MG 10ML VIAL IV SCH ×2 (02:24→16:45)
[2018-09-07] MEDS: FUROSEMIDE INJ 10 MG/ML 4 ML VIAL IV SCH ×2 (04:47→07:59)
[2018-09-07] MEDS: MORPHINE SULFATE INJ 4 MG/ML INJ 1ML IV PRN ×2 (04:48→21:53)
[2018-09-07 05:33] LABS: BASOPHILS # (AUTO) 0.1 (0.0-0.1); BASOPHILS % 0.5 % (0.0-1.0); EOSINOPHILS % 0.2 % (0.0-6.0); HEMATOCRIT 26.2 % (34.2-44.1); HEMOGLOBIN 8.6 g/dL (12.0-16.0); LYMPHOCYTES % 8.5 % (18.0-39.1); MEAN CORPUSCULAR HEMOGLOBIN 30.3 pg (28-32); MEAN CORPUSCULAR HGB CONC 32.8 g/dL (31-35); MEAN CORPUSCULAR VOLUME 92.3 fL (81-99); MONOCYTES % 8.5 % (4.4-11.3); NEUTROPHILS # (AUTO) 9.6 (2.1-6.9); NEUTROPHILS % 81.5 % (38.7-80.0); PLATELET COUNT 213 x10e3/uL (140-360); RED BLOOD COUNT 2.84 x10e6/uL (3.6-5.1); RED CELL DISTRIBUTION WIDTH 21.1 % (11.7-14.4)
[2018-09-07] MEDS: INSULIN LISPRO 100 UNIT/1 ML 3ML VIAL SQ SCH ×4 (06:00→18:27)
[2018-09-07 06:03] LABS: ANION GAP 13.6 mmol/L (8-16); CALCIUM 8.8 mg/dL (8.4-10.2); CREATININE, SERUM 1.3 mg/dL (0.57-1.11)
[2018-09-07 06:05] LABS: POTASSIUM 2.6 mmol/L (3.5-5.1)
--- NOTE | 2018-09-07 06:56 | NUR ---
AT 0650 LEFT [facility] FOR DR WHELAN TO RETURN PHONE CALL REGARDING PATIENTs KCL lab results. NO RETURN PHONE CALL OF YET. WILL INFORM DAYSHIFT NURSE
[2018-09-07] MEDS ORDERED: POTASSIUM CHLORIDE 20MEQ/100ML 200 ML IV ONE (07:30)
[2018-09-07] MEDS ORDERED: DEXTROSE 5% 500ML 500 ML IV ONE (07:30)
--- NOTE | 2018-09-07 08:53 | Diagnostic Imaging Report ---
EXAMINATION: CHEST SINGLE (PORTABLE) INDICATION: ^sob ^[id number] ^[id number] COMPARISON: 09/06/2018 FINDINGS: AP view TUBES and LINES: Stable right IJ central line and NG/C2. LUNGS: Lungs are well inflated. Pulmonary vascular congestion and moderate interstitial edema. PLEURA: No pneumothorax. Small right pleural effusion suspected. HEART AND MEDIASTINUM: The cardiac silhouette is enlarged. BONES AND SOFT TISSUES: No acute osseous lesion. Soft tissues are unremarkable. UPPER ABDOMEN: No free air under the diaphragm. IMPRESSION: Pulmonary vascular congestion and moderate interstitial edema, slightly improved compared to prior exam. Underlying infiltrate cannot be excluded in the appropriate clinical context. Small right pleural effusion suspected. Signed by: Dr. Roberto Castañeda MD on 09/07/2018 8:49 AM
[2018-09-07] MEDS: AMMONIUM LACTATE 12% LOTION 225GM BTL TOP SCH ×2 (09:00→16:55)
[2018-09-07] MEDS: FLUCONAZOLE 200 MG/100 ML 100 ML IV SCH (11:39)
--- NOTE | 2018-09-07 12:00 | NUR ---
Monico with [facility] at [phone] called and said patient is approved for ltac. notified jose lomeli, she states he is not ready to d/c yet.
[2018-09-07] MEDS: VANCOMYCIN 1GM/NS 250 ML 250 ML IV SCH (12:11)
--- NOTE | 2018-09-07 12:56 | NUR ---
CONSULT FOR CALLED AT THIS TIME
[2018-09-07] MEDS ORDERED: CENTRAL TPN FORMULA 1 BAG IV SCH (20:00)
[2018-09-07] MEDS: ONDANSETRON HCL INJ 2MG/ML 2ML 2 MG/ML VIAL IV PRN (21:53)
[2018-09-08] VITALS (25 sets, daily range): BP systolic 97–130; BP diastolic 46–60
[2018-09-08] MEDS: IPRATROPIUM BROMIDE 0.02% 2.5 ML NEB NEB SCH ×4 (00:22→20:10)
[2018-09-08] MEDS: LEVALBUTEROL HCL SOLN NEBU 0.63 MG/3 ML NEB INH SCH ×4 (00:30→20:10)
[2018-09-08] MEDS: PIPER-TAZ 3.375 GM 50 ML IV SCH ×2 (00:31→07:04)
[2018-09-08] MEDS: INSULIN LISPRO 100 UNIT/1 ML 3ML VIAL SQ SCH ×4 (00:41→18:07)
[2018-09-08] MEDS: MORPHINE SULFATE INJ 4 MG/ML INJ 1ML IV PRN ×3 (01:55→20:21)
[2018-09-08] MEDS: PANTOPRAZOLE 40 MG 10ML VIAL IV SCH ×2 (04:18→15:45)
[2018-09-08 04:42] LABS: BASOPHILS # (AUTO) 0.1 (0.0-0.1); BASOPHILS % 0.4 % (0.0-1.0); EOSINOPHILS # (AUTO) 0.2 (0.0-0.4); EOSINOPHILS % 1.4 % (0.0-6.0); HEMATOCRIT 28.2 % (34.2-44.1); HEMOGLOBIN 9.2 g/dL (12.0-16.0); LYMPHOCYTES # (AUTO) 1.4 (1.0-3.2); LYMPHOCYTES % 11.8 % (18.0-39.1); MEAN CORPUSCULAR HEMOGLOBIN 29.9 pg (28-32); MEAN CORPUSCULAR HGB CONC 32.6 g/dL (31-35); MEAN CORPUSCULAR VOLUME 91.6 fL (81-99); MONOCYTES % 8.8 % (4.4-11.3); NEUTROPHILS # (AUTO) 9.1 (2.1-6.9); NEUTROPHILS % 76.6 % (38.7-80.0); PLATELET COUNT 218 x10e3/uL (140-360); RED BLOOD COUNT 3.08 x10e6/uL (3.6-5.1); RED CELL DISTRIBUTION WIDTH 20.7 % (11.7-14.4)
[2018-09-08 05:04] LABS: ANION GAP 14.4 mmol/L (8-16); CREATININE, SERUM 1.25 mg/dL (0.57-1.11)
[2018-09-08 05:06] LABS: POTASSIUM 2.4 mmol/L (3.5-5.1)
--- NOTE | 2018-09-08 06:51 | Diagnostic Imaging Report ---
EXAMINATION: CHEST SINGLE (PORTABLE) INDICATION: Shortness of breath. COMPARISON: 09/07/2018 FINDINGS: AP view TUBES and LINES: Stable right IJ central line and NG/orogastric tube with distal tip in the gastric fundus.. LUNGS: Lungs are well inflated. Pulmonary vascular congestion and moderate pulmonary edema. PLEURA: No pneumothorax. Small bilateral pleural effusions. HEART AND MEDIASTINUM: The cardiac silhouette is mildly enlarged. BONES AND SOFT TISSUES: No acute osseous lesion. Soft tissues are unremarkable. UPPER ABDOMEN: No free air under the diaphragm. IMPRESSION: No significant interval change. Bilateral pulmonary venous congestion and asymmetric pulmonary edema. Stable tubes and line. Signed by: Dr. Moiz Welch M.D. on 09/08/2018 6:48 AM
[2018-09-08] MEDS: POTASSIUM CHLORIDE 20MEQ/100ML 100 ML IV PRN ×2 (07:06→07:21)
[2018-09-08] MEDS ORDERED: POTASSIUM CHLORIDE 20MEQ/100ML 100 ML ONE (07:19)
[2018-09-08] MEDS ORDERED: POTASSIUM CHLORIDE 20MEQ/100ML 100 ML IV ONE (08:00)
[2018-09-08] MEDS: FUROSEMIDE INJ 10 MG/ML 4 ML VIAL IV SCH (08:04)
[2018-09-08] MEDS ORDERED: DEXTROSE 5% 1,000 ML IV SCH (09:30)
[2018-09-08] MEDS ORDERED: DEXTROSE 5%/0.225% SOD CHL 1,000 ML IV SCH (09:45)
[2018-09-08] MEDS: AMMONIUM LACTATE 12% LOTION 225GM BTL TOP SCH ×2 (10:00→16:50)
[2018-09-08] MEDS ORDERED: POTASSIUM CHLORIDE 20MEQ/100ML 200 ML IV ONE (10:30)
[2018-09-08] MEDS: FLUCONAZOLE 200 MG/100 ML 100 ML IV SCH (10:37)
--- NOTE | 2018-09-08 16:50 | NUR ---
Visit made by the Spiritual Care Department Pastoral Visitor, Jenni Cervantes. PV provided pastoral presence, hospitality, and supportive listening. Pastoral Visitor informed pt/family of the scope of [employer] and availability. DOMONIQUE PICHARDO Petroleum Plant Operator Spiritual Care Department O: [phone] Pager: [phone] ([phone] number calling from)
--- NOTE | 2018-09-08 17:20 | Consultation ---
DATE OF CONSULTATION: 09/08/2018 REASON FOR CONSULTATION: Recommendation of antibiotic. HISTORY OF PRESENT ILLNESS: This is a patient, who has been in [facility] for the last 27 days. She is currently in the intensive care unit. The patient came to the emergency room on August 12, 2018. She is a 68-year-old, who has severe pruritus, skin dermatitis. She also has jaundice. The patient came to the emergency room. She was found to have hyperbilirubinemia as well, bilirubin was 10. CT scan showed 1.1 cm biliary filling defect consistent with the lesion. The patient was seen by Wound Care, by GI, and by Surgery. The patient apparently has been sick for two months before she came here. The patient on August 23 underwent surgery, underwent a pancreaticoduodenectomy. 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 The patient had acute kidney injury. The patient did have an ERCP, which showed ulceration and friable lesion in the ampulla as mentioned above. Surgery was done on August [address] Omer. The patient did improve clinically postoperatively antibiotic. The patient is currently lying in bed comfortably. She has no complaint. Family at the bedside. LABORATORY DATA: Reviewed. Urine cultures on September 03 showed Tia albicans. Her white count is 11.84, hemoglobin 9.2, hematocrit 28. Her sodium 153, potassium 2.4, creatinine 1.25. MEDICATION LIST: She is currently on dextrose, fluconazole, furosemide. She is on Zosyn and vancomycin. PHYSICAL EXAMINATION: GENERAL: She is currently alert, oriented, does not seem to be in acute distress. VITAL SIGNS: Stable. Currently afebrile. HEENT: She is not icteric. NECK: Supple. CHEST: Clear bilateral. COR: S1, S2. No S3, S4, murmur. ABDOMEN: Soft. Bowel sounds present. No tenderness. EXTREMITIES: No edema. SKIN: At the present time, there is no rash. The patient on September 06 found to have fever, before that there was no fever. Chest x-ray on September 08 showed no significant changes, bilateral pulmonary venous congestion. IMPRESSION: This patient has been here for 27 days status post Whipple for ampullary/pancreatic tumor, currently on TPN. From Infectious Disease point of view, I would suggest to discontinue both antibiotic, continue with Diflucan since I am concerned about fungemia. She did have yeast in her urine. 14 days, clinically she seems stable. Suggest to increase p.o. intake. Wean down TPN. Diabetes mellitus, hypertension. Intra-abdominal tumor. Acute kidney injury. Clinically seems to be better. Can leave ICU. We will follow. MD HAKAN Lenz/AVEL /[id number]
--- NOTE | 2018-09-08 18:12 | NUR ---
patient had uneventful day. family at BS. linens changed . tylenol given for fever 100.7 via NGT. vitals stable with no distress.
[2018-09-08] MEDS: CENTRAL TPN FORMULA 1 BAG IV SCH (20:13)
[2018-09-08] MEDS: ONDANSETRON HCL INJ 2MG/ML 2ML 2 MG/ML VIAL IV PRN (20:21)
[2018-09-09] VITALS (26 sets, daily range): BP systolic 116–153; BP diastolic 49–76
[2018-09-09] MEDS: MORPHINE SULFATE INJ 4 MG/ML INJ 1ML IV PRN (01:24)
[2018-09-09] MEDS: INSULIN LISPRO 100 UNIT/1 ML 3ML VIAL SQ SCH ×4 (01:30→18:00)
[2018-09-09] MEDS: LEVALBUTEROL HCL SOLN NEBU 0.63 MG/3 ML NEB INH SCH ×4 (01:35→19:20)
[2018-09-09] MEDS: IPRATROPIUM BROMIDE 0.02% 2.5 ML NEB NEB SCH ×4 (01:35→19:20)
[2018-09-09] MEDS: ACETAMINOPHEN 325 MG TAB PO PRN ×2 (02:53→09:14)
[2018-09-09] MEDS: PANTOPRAZOLE 40 MG 10ML VIAL IV SCH ×2 (03:14→16:01)
[2018-09-09 04:53] LABS: BASOPHILS % 0.3 % (0.0-1.0); EOSINOPHILS # (AUTO) 0.1 (0.0-0.4); EOSINOPHILS % 0.7 % (0.0-6.0); HEMATOCRIT 30.6 % (34.2-44.1); HEMOGLOBIN 10.2 g/dL (12.0-16.0); LYMPHOCYTES # (AUTO) 1.3 (1.0-3.2); LYMPHOCYTES % 9.6 % (18.0-39.1); MEAN CORPUSCULAR HEMOGLOBIN 30.7 pg (28-32); MEAN CORPUSCULAR HGB CONC 33.3 g/dL (31-35); MEAN CORPUSCULAR VOLUME 92.2 fL (81-99); MONOCYTES # (AUTO) 0.6 (0.2-0.8); MONOCYTES % 4.7 % (4.4-11.3); NEUTROPHILS # (AUTO) 11.3 (2.1-6.9); NEUTROPHILS % 83.7 % (38.7-80.0); PLATELET COUNT 205 x10e3/uL (140-360); RED BLOOD COUNT 3.32 x10e6/uL (3.6-5.1); RED CELL DISTRIBUTION WIDTH 20.9 % (11.7-14.4)
[2018-09-09 05:14] LABS: ALBUMIN/GLOBULIN RATIO 0.7 (0.8-2.0); ANION GAP 12.7 mmol/L (8-16); CALCIUM 9.4 mg/dL (8.4-10.2); CREATININE, SERUM 1.15 mg/dL (0.57-1.11)
[2018-09-09 06:30] LABS: POTASSIUM 2.7 mmol/L (3.5-5.1)
[2018-09-09] MEDS ORDERED: DEXTROSE 5%/0.45% SOD CHL 1,000 ML IV SCH (06:30)
[2018-09-09] MEDS ORDERED: POTASSIUM CHLORIDE 20MEQ/100ML 100 ML IV ONE (06:45)
[2018-09-09] MEDS ORDERED: BISACODYL 5 MG TAB EC PO NR (06:45)
[2018-09-09] MEDS ORDERED: LACTULOSE SYRUP 20 GM/30 ML UDC PO NR (06:45)
[2018-09-09] MEDS ORDERED: POTASSIUM CHLORIDE 20 MEQ TAB CR PO SCH (06:45)
[2018-09-09] MEDS ORDERED: BISACODYL 10 MG SUPP PR NR (07:30)
[2018-09-09] MEDS: AMMONIUM LACTATE 12% LOTION 225GM BTL TOP SCH ×2 (09:14→16:01)
[2018-09-09] MEDS: FUROSEMIDE INJ 10 MG/ML 4 ML VIAL IV SCH (09:14)
[2018-09-09] MEDS: FLUCONAZOLE 200 MG/100 ML 100 ML IV SCH (10:52)
[2018-09-09] MEDS ORDERED: DIATRIZOATE MEGL/DIATRIZOA SOD 30 ML BTL PO ONE (12:43)
--- NOTE | 2018-09-09 14:22 | NUR ---
dr tellez on unit, aware of CT results
--- NOTE | 2018-09-09 14:25 | NUR ---
lab mercedes micro peripherally, ed dr tellez while on unit, per ct results, ok to cancel micro from cvc and run blood peripheral. ed lab to update specimen
--- NOTE | 2018-09-09 15:40 | Diagnostic Imaging Report ---
EXAM: CT Abdomen and Pelvis WITHOUT contrast INDICATION: Jaundice, status post Whipple procedure. COMPARISON: CT abdomen and pelvis 09/03/2018. TECHNIQUE: Abdomen and pelvis were scanned utilizing a multidetector helical scanner from the lung base to the pubic symphysis without administration of IV contrast. Coronal and sagittal reformations were obtained. Routine protocol was performed. IV CONTRAST: None ORAL CONTRAST: Gastrografin COMPLICATIONS: None RADIATION DOSE: Total DLP: 639.77 mGy*cm Estimated effective dose: (DLP x 0.015 x size factor) mSv CTDIvol has been reviewed. It is below the limits set by the Radiation Protocol Committee (RPC). Dose modulation, iterative reconstruction, and/or weight based adjustment of the mA/kV was utilized to reduce the radiation dose to as low as reasonably achievable. FINDINGS: LINES and TUBES: Right upper quadrant subhepatic biliary drain extending along the superior aspect of the expected pancreatic head. LOWER THORAX: Slightly decreased amount of small bilateral pleural effusions. Bilateral lower lobe atelectasis is unchanged. Improvement in the mild edema. HEPATOBILIARY: No focal hepatic lesions. No biliary ductal dilation. Pneumobilia again now present. GALLBLADDER: There are cholecystectomy clips. SPLEEN: No splenomegaly. PANCREAS: Postoperative changes of a Whipple's procedure. Extensive postoperative changes in the surgical bed. The previously described fluid collection in the right midabdomen is slightly smaller. ADRENALS: No adrenal nodules KIDNEYS/URETERS: No hydronephrosis. Right renal cyst poorly visualized. No stones. GI TRACT: There are post operative changes of distal gastrectomy with direct re-anastomosis to a small bowel loop. There is postoperative wall edema. Fluid and/or thickening inferior to the location of the gastrectomy is diminished compared to the prior study. Additional small bowel sutures in the left abdomen are again noted. Oral contrast is seen passing into the ileum and portions of the ascending colon with no evidence of obstruction. Appendix is not visualized. PELVIC ORGANS/BLADDER: Unremarkable. LYMPH NODES: No lymphadenopathy. VESSELS: Limited evaluation without IV contrast. Arterial calcification. PERITONEUM / RETROPERITONEUM: No free air or fluid. BONES: Unremarkable. SOFT TISSUES: Overlying skin dee. IMPRESSION: 1. Unchanged 2.7 x 6.8 cm fluid collection extending inferiorly from the surgical bed. 2. Positive oral contrast extends to the left colon without evidence of obstruction. 3. Slight decrease in small bilateral pleural effusion with improving edema. 4. Pneumobilia is again noted. No definite biliary ductal dilatation. Signed by: Dr. Mio Kam DO on 09/09/2018 3:36 PM
--- NOTE | 2018-09-09 16:14 | NUR ---
pt amb with PT from icu to end of ms1. sitting in chair on side of bed. per OR, lap drainage to be done this evening. consent obtained from pt with family present and translation line
--- NOTE | 2018-09-09 18:09 | NUR ---
pt vs stable, leaving unit for procedure. daughter at bedside.
[2018-09-09] MEDS ORDERED: SUCCINYLCHOLINE 200 MG/10 ML SYR ONE (18:13)
[2018-09-09] MEDS ORDERED: DESFLURANE 240 ML BTL INH ONE (18:13)
[2018-09-09] MEDS ORDERED: ROCURONIUM BROMIDE 10 MG/ML 5ML VIAL ONE (18:13)
[2018-09-09] MEDS ORDERED: PROPOFOL IV EMULSION 10 MG/ML 20 ML VIAL ONE (18:13)
[2018-09-09] MEDS ORDERED: LIDOCAINE HCL 2% LOCAL INJ 5 ML SDV VIAL INJ ONE (18:13)
[2018-09-09] MEDS ORDERED: FENTANYL CITRATE/PF 100MCG/2 ML INJ ONE (18:15)
[2018-09-09] MEDS: D5.45%NS/KCL 20MEQ 1,000 ML IV SCH (21:55)
[2018-09-09] MEDS: CEFOXITIN 1GM/ D5W 50ML 50 ML IV SCH (21:55)
[2018-09-09] MEDS: PROPOFOL IV EMULSION 10MG/ML 100 ML IV PRN (21:55)
[2018-09-09] MEDS ORDERED: PROPOFOL IV EMULSION 10MG/ML 100 ML ONE (21:56)
[2018-09-09] MEDS: CENTRAL TPN FORMULA 1 BAG IV SCH (22:00)
[2018-09-09] MEDS ORDERED: LACTATED RINGER'S 1,000 ML IV ONE (23:45)
[2018-09-09] MEDS ORDERED: LACTATED RINGER'S 2,000 ML ONE (23:47)
[2018-09-10] VITALS (46 sets, daily range): BP systolic 81–143; BP diastolic 42–88
[2018-09-10] MEDS: INSULIN LISPRO 100 UNIT/1 ML 3ML VIAL SQ SCH ×4 (00:45→17:56)
[2018-09-10] MEDS: IPRATROPIUM BROMIDE 0.02% 2.5 ML NEB NEB SCH ×4 (02:05→19:20)
[2018-09-10] MEDS: LEVALBUTEROL HCL SOLN NEBU 0.63 MG/3 ML NEB INH SCH ×4 (02:05→19:20)
[2018-09-10] MEDS: PROPOFOL IV EMULSION 10MG/ML 100 ML IV PRN (02:22)
[2018-09-10] MEDS: PANTOPRAZOLE 40 MG 10ML VIAL IV SCH ×2 (03:05→15:57)
[2018-09-10] MEDS ORDERED: DEXMEDETOMIDINE 200MCG/NS 50ML 0 ML IV ONE (03:05)
[2018-09-10] MEDS: DEXMEDETOMIDINE HCL 200 MCG in SODIUM CHLORIDE 0.9% 50ML 48 ML IV PRN ×2 (03:05→04:50)
[2018-09-10] MEDS: MORPHINE SULFATE INJ 4 MG/ML INJ 1ML IV PRN ×2 (03:05→22:34)
[2018-09-10] MEDS: CEFOXITIN 1GM/ D5W 50ML 50 ML IV SCH ×4 (03:25→22:34)
[2018-09-10] MEDS ORDERED: LACTATED RINGER'S 1,000 ML IV ONE (04:00)
--- NOTE | 2018-09-10 04:24 | Operative Report ---
DATE OF PROCEDURE: 09/09/2018 SURGEON: Robert Omer MD PREOPERATIVE DIAGNOSIS: Interloop abscess. POSTOPERATIVE DIAGNOSES: Interloop abscess and high-grade obstruction of the intestine. OPERATIVE PROCEDURE: Diagnostic laparoscopy, exploratory laparotomy, lysis of significant adhesions, and drainage of interloop collections/abscess. ANESTHESIA: General, Dr. Stallworth. INDICATIONS: A 68-year-old female, 3 weeks status post Whipple procedure, who has persistent evidence of partial high-grade obstruction with intermittent fever and leukocytosis. CT scan showed persistent collection in the mesentery between the loops of intestine proximally. At this point, family and the patient consented for diagnostic laparoscopy for drainage of possible interloop abscess. PROCEDURE FINDING: Significant interloop adhesions and fluid collection/abscess near the anastomosis. DESCRIPTION OF PROCEDURE: The patient was brought to OR, intubated. Abdomen was prepped with alcohol and draped in sterile fashion. An infraumbilical incision was made and a 5-mm port inserted. Insufflation then began under direct vision. The ports were placed in the flank area bilaterally. Laparoscopic examination revealed no significant bowel dilatations that were visible distally. Significant adhesions noted with the loops of bowel seen to be all balling up in the intra-mesentery of the transverse colon. At this point, decision was made for a midline incisions, extending the incisions above and below the umbilicus for approximately 10 cm. Entering the peritoneal cavity, the previous area of anastomosis was identified. The jejunojejunostomy between the biliary limb and the Morenita limb to the pancreas was noted to be patent. We then proceeded to follow the bowel distally and also in a retrograde fashion identified the ileocecal valve and working back on the intestine towards the anastomosis. Adhesions down to the retroperitoneum near the right side of the transverse colon mesentery were noted and in this area adjacent to the roots of the mesentery, the collections of some jelly-like serosanguineous fluid were evacuated, which were thought to be what were seen on CT scan as interloop abscess. This was thoroughly drained in the loops of intestine. We then followed back to the anastomosis with several other areas of adhesion, which were taken down with a combination of blunt and sharp dissection until the bowel was relatively straightened out without high-grade kink or bend. At this point, operative field was then irrigated. Hemostasis was achieved. A 19-Micronesian Morgan drain placed into the site of the fluid collection at the roots of the mesentery and taken out through the stab wound incision on the right lower quadrant. The bowel was then replaced in the normal location as much as possible and the midline fascia closed with running 0 PDS and reinforced with 0 Vicryl. A Janett drain was placed in the subcutaneous tissue with the skin closed with dee. The patient then transported intubated to the ICU in guarded condition. ESTIMATED BLOOD LOSS: 50 mL. Robert Omer MD DNSandra/MODSandra /[id number]
[2018-09-10] MEDS ORDERED: DEXMEDETOMIDINE 200MCG/NS 50ML 100 ML IV ONE (04:41)
[2018-09-10 05:03] LABS: BASOPHILS % 0.3 % (0.0-1.0); EOSINOPHILS % 0.2 % (0.0-6.0); HEMATOCRIT 27.1 % (34.2-44.1); HEMOGLOBIN 8.7 g/dL (12.0-16.0); LYMPHOCYTES # (AUTO) 1.3 (1.0-3.2); LYMPHOCYTES % 10.1 % (18.0-39.1); MEAN CORPUSCULAR HEMOGLOBIN 30.1 pg (28-32); MEAN CORPUSCULAR HGB CONC 32.1 g/dL (31-35); MEAN CORPUSCULAR VOLUME 93.8 fL (81-99); MONOCYTES # (AUTO) 0.6 (0.2-0.8); MONOCYTES % 4.7 % (4.4-11.3); NEUTROPHILS # (AUTO) 10.8 (2.1-6.9); NEUTROPHILS % 83.9 % (38.7-80.0); PLATELET COUNT 143 x10e3/uL (140-360); RED BLOOD COUNT 2.89 x10e6/uL (3.6-5.1); RED CELL DISTRIBUTION WIDTH 20.8 % (11.7-14.4)
[2018-09-10 05:32] LABS: ALBUMIN 2.2 g/dL (3.5-5.0); ALBUMIN/GLOBULIN RATIO 0.7 (0.8-2.0); ANION GAP 10.3 mmol/L (8-16); CALCIUM 8.4 mg/dL (8.4-10.2); CREATININE, SERUM 1.33 mg/dL (0.57-1.11); POTASSIUM 3.3 mmol/L (3.5-5.1)
[2018-09-10] MEDS: FUROSEMIDE INJ 10 MG/ML 4 ML VIAL IV SCH (08:14)
[2018-09-10] MEDS: D5.45%NS/KCL 20MEQ 1,000 ML IV SCH ×2 (08:14→17:54)
[2018-09-10] MEDS: AMMONIUM LACTATE 12% LOTION 225GM BTL TOP SCH ×2 (08:36→15:50)
--- NOTE | 2018-09-10 09:57 | Diagnostic Imaging Report ---
Examination: Single AP view of the chest. COMPARISON: 09/08/2018 INDICATION: Respiratory failure DISCUSSION: Interval intubation. The tip of the endotracheal tube projects at the level of the rafa. Enteric tube and right internal jugular central venous catheter are unchanged in position. Interval improvement in aeration of the right lung base relative to 09/08/2018. Persistent retrocardiac airspace disease likely atelectasis. Pulmonary interstitial prominence likely reflective of mild edema is unchanged. No acute osseous abnormality. IMPRESSION: Interval intubation with the tip of the endotracheal tube projecting at the level of the rafa. Retraction by 2-3 cm is suggested. Interval improvement in aeration of the right lung base with otherwise stable asymmetric pulmonary edema relative to 09/08/2018. Findings were discussed with STEEL MELTERJEANETTE Ghosh at 0950 hours 09/10/2018. Signed by: Dr. Robert Mcgee M.D. on 09/10/2018 9:54 AM
[2018-09-10] MEDS ORDERED: POTASSIUM CHLORIDE 20MEQ/100ML 100 ML IV ONE (10:00)
--- NOTE | 2018-09-10 10:10 | NUR ---
patient extubated and placed on 4L NC. tollerated well. resting well now with sat's 100%.
[2018-09-10 10:17] LABS: ABG PCO2 37 mmHg (41-51); ABG PH 7.48 (7.31-7.41); ABG PO2 77 mmHg (80-105)
[2018-09-10 10:18] LABS: ABG HCO3 28 mmol/L (23-28)
[2018-09-10] MEDS: FLUCONAZOLE 200 MG/100 ML 100 ML IV SCH (11:44)
[2018-09-10] MEDS: ACETAMINOPHEN 325 MG TAB PO PRN (14:33)
[2018-09-10] MEDS: MICAFUNGIN SODIUM 100 ML IV SCH (17:54)
[2018-09-10] MEDS ORDERED: MICAFUNGIN SODIUM 100 ML IV SCH (18:00)
[2018-09-10] MEDS ORDERED: CENTRAL TPN FORMULA 1 BAG IV SCH (20:00)
[2018-09-10] MEDS ORDERED: METOPROLOL TARTRATE INJ 1 MG/ML VIAL IV PRN (23:45)
[2018-09-11] VITALS (21 sets, daily range): BP systolic 127–156; BP diastolic 52–66
[2018-09-11] MEDS: INSULIN LISPRO 100 UNIT/1 ML 3ML VIAL SQ SCH ×5 (00:11→23:38)
[2018-09-11] MEDS: ACETAMINOPHEN 325 MG TAB PO PRN (00:15)
[2018-09-11] MEDS: IPRATROPIUM BROMIDE 0.02% 2.5 ML NEB NEB SCH ×4 (01:30→20:00)
[2018-09-11] MEDS: LEVALBUTEROL HCL SOLN NEBU 0.63 MG/3 ML NEB INH SCH ×4 (01:30→20:00)
[2018-09-11] MEDS: D5.45%NS/KCL 20MEQ 1,000 ML IV SCH (03:02)
[2018-09-11] MEDS: PANTOPRAZOLE 40 MG 10ML VIAL IV SCH ×2 (03:03→15:39)
[2018-09-11] MEDS: MORPHINE SULFATE INJ 4 MG/ML INJ 1ML IV PRN ×2 (04:14→23:38)
[2018-09-11] MEDS: CEFOXITIN 1GM/ D5W 50ML 50 ML IV SCH ×2 (04:23→10:00)
[2018-09-11 05:14] LABS: BASOPHILS # (AUTO) 0.1 (0.0-0.1); BASOPHILS % 0.4 % (0.0-1.0); EOSINOPHILS # (AUTO) 0.2 (0.0-0.4); EOSINOPHILS % 1.2 % (0.0-6.0); HEMATOCRIT 28.9 % (34.2-44.1); HEMOGLOBIN 9.2 g/dL (12.0-16.0); LYMPHOCYTES # (AUTO) 2.5 (1.0-3.2); LYMPHOCYTES % 18.5 % (18.0-39.1); MEAN CORPUSCULAR HGB CONC 31.8 g/dL (31-35); MEAN CORPUSCULAR VOLUME 94.1 fL (81-99); MONOCYTES # (AUTO) 0.9 (0.2-0.8); MONOCYTES % 6.9 % (4.4-11.3); NEUTROPHILS # (AUTO) 9.8 (2.1-6.9); NEUTROPHILS % 72.1 % (38.7-80.0); PLATELET COUNT 129 x10e3/uL (140-360); RED BLOOD COUNT 3.07 x10e6/uL (3.6-5.1); RED CELL DISTRIBUTION WIDTH 20.6 % (11.7-14.4)
[2018-09-11 05:49] LABS: ANION GAP 10.7 mmol/L (8-16); CALCIUM 8.6 mg/dL (8.4-10.2); CREATININE, SERUM 1.23 mg/dL (0.57-1.11); POTASSIUM 3.7 mmol/L (3.5-5.1)
[2018-09-11] MEDS ORDERED: MICAFUNGIN SODIUM 50 MG/50 ML BAG IV SCH (09:00)
[2018-09-11] MEDS: FUROSEMIDE INJ 10 MG/ML 4 ML VIAL IV SCH (09:25)
--- NOTE | 2018-09-11 10:49 | NUR ---
dr lunyd at bedside changing rij cvc to left ij cvc
[2018-09-11] MEDS ORDERED: MORPHINE SULFATE INJ 4 MG/ML INJ 1ML IV ONE (12:00)
--- NOTE | 2018-09-11 12:24 | Diagnostic Imaging Report ---
EXAMINATION: CHEST XRAY LINE PLACEMENT INDICATION: Status post left IJ central line. COMPARISON: Chest radiograph 09/10/2018. FINDINGS: Exam somewhat limited by motion artifact and soft tissue attenuation. TUBES and LINES: Interval removal of right IJ central line. Interval placement of a left IJ central line with tip near the cavoatrial junction. Interval extubation. Enteric tube is in unchanged position. LUNGS: Moderate inflation of lungs. There are increasing interstitial and perihilar opacities. Increasing patchy opacities at lung bases. PLEURA: Possible small left pleural effusion. No evidence of pneumothorax. HEART AND MEDIASTINUM: The cardiomediastinal silhouette is unremarkable. There are atherosclerotic calcifications within the aorta. BONES AND SOFT TISSUES: No acute osseous abnormality. UPPER ABDOMEN: No free air under the diaphragm. IMPRESSION: Interval removal of right IJ central line and placement of a left IJ central line with tip at the cavoatrial junction. No evidence of pneumothorax. Interval extubation. Increasing pulmonary edema. Increasing opacities in the lung bases may reflect alveolar edema, although atelectasis or pneumonia are possible in the appropriate clinical setting. Signed by: Dr. Serge Virk MD on 09/11/2018 12:20 PM
--- NOTE | 2018-09-11 13:00 | Diagnostic Imaging Report ---
Procedure: 1) Removal of right internal jugular non-tunneled central venous catheter 2) Placement of left internal jugular non-tunneled central venous catheter with ultrasound guidance winch derrick operator: Dr. Serge Virk Pre-operative diagnosis: Leukocytosis, suspected source of infection from right IJ central venous catheter. Post-operative diagnosis: Status post removal of right IJ central line and placement of left IJ central line. Sedation: Local Additional Medications: Lidocaine 1% for local anesthesia Estimated blood loss: None Specimens: Right IJ triple-lumen non tunneled central venous catheter retrieved intact, discarded. Implants: 7 Fr x 16 cm triple lumen non-tunneled central venous catheter in the left IJ TECHNIQUE/FINDINGS: Informed consent was obtained from the patient and documented in the medical record after discussion of risks and benefits. The patient was placed in the supine position. Preliminary sonographic evaluation of the left neck confirmed a patent and compressible right internal jugular vein. A permanent sonographic image was stored for the medical record. The bilateral neck was then prepped and draped in a standard sterile fashion. The right IJ central venous catheter sutures were removed and the catheter was removed intact. Hemostasis was achieved with 2 minutes of manual compression. Sterile bandage was placed. Subsequently, 1% lidocaine was infiltrated into the skin and subcutaneous tissues of the left neck for local anesthesia. Then under continuous sonographic guidance, a 21 gauge needle was advanced into the left internal jugular vein and an .018'' wire was placed. A 5 Fr micropuncture sheath was placed and the existing wire was exchanged for an .035'' wire. The tract was dilated. Then, a 7 Fr x 16 cm triple lumen non-tunneled central venous catheter was advanced. The wire was then removed. Each lumen was tested and showed adequate bidirectional flow. The catheter was secured to the skin with Monocryl, flushed with saline, and covered by a sterile dressing. No evidence of immediate complication. IMPRESSION: Removal of right IJ non-tunneled central venous catheter. Placement of a left IJ non-tunneled triple lumen central venous catheter with ultrasound guidance as above. Signed by: Dr. Serge Virk MD on 09/11/2018 12:56 PM
[2018-09-11] MEDS: AMMONIUM LACTATE 12% LOTION 225GM BTL TOP SCH ×2 (13:03→18:00)
--- NOTE | 2018-09-11 13:45 | NUR ---
PT ACCEPTED TO [facility] SPOKE WITH DR BROWN WILL TRANSFER TO [facility] TOMORROW 09/12 IF STABLE (48 HRS POST EXTUBATION) TRANSFER TO IM TODAY FAMILY NOTIFIED IN [place] OF PLANNED TRANSFER TOMORROW
[2018-09-11] MEDS: CEFOXITIN SODIUM IV SCH ×2 (15:39→20:48)
[2018-09-11] MEDS: SODIUM CHLORIDE 0.9% IV SCH ×2 (15:39→20:48)
--- NOTE | 2018-09-11 16:45 | NUR ---
Nutrition Intervention Note RD Recommendation(s) for Physician: - Rec to remove lipids from TPN due to fungus in blood - Rec to increase protein to 85g/ day to more adequately meet her needs - Check BMP, Phos, Mag daily; Prealbumin, LFT and TG levels weekly - Continue with TPN per MD until diet is advanced and intake is >50%. Estimated Nutritional Needs: Calories: 1210 1375kcal (22-25kcal/kg/d) Weight used: IBW Protein: 83 138g (1.5-2.5g/kg/d) Weight used: IBW Plan of Care: RD following, monitoring for tolerance and adequacy, TPN Nutrition reason for involvement: Follow up RD Assessment (09/11) Pt was extubated and on nasal cannula. Pt was discussed during AM rounds. Per RN, fungus was found in blood culture. TPN still running at 57mL/hr with lipids. No Phos, Mg or TG drawn. RD rec to remove lipids from TPN due to fungus in blood. Draw BMP, Phos, Mag daily; Prealbumin, LFT and TG levels weekly. Will continue to monitor and follow. (09/06) Pt was transferred to ICU for respiratory issue. Currently on BiPAP. NGT to suction, draining some dark liquids. No complains of nausea or vomiting today. Abd X-ray showed some postoperative changes in upper abdomen. TPN continues to run at 57mL/hr. Will continue to monitor and follow. (09/03) Pt was discussed during AM rounds. Currently on IV abx, Zofran and Reglan. Per RN Lila, pt had nausea and vomited x2 this AM. Visited pt in the room. TPN still running at 57mL/hr. IVF at 5mL/hr. Pt reported feeling hungry and wanted to eat. Flatus present. CT abd/pel pending. Will continue to monitor and follow. (08/29) Pt was discussed during AM rounds. Pt was awake and alert. Walked with PT this AM. Visited pt in the room. TPN still running at 57mL/hr. K, Na and Mg WNL. No phos for today. Pt denied any nausea or vomiting. Flatus absent. Current PN was appropriate. Will continue to monitor and follow. (08/26) Pt went into OR for repair of large intraluminal and extraluminal clots at jejunojejunostomy from staple line bleeding on 08/25. Pt remained intubated. NGT to suction. No pressor meds. Last phosphorus was drawn on 08/23. No sign of refeeding syndrome with normal K and Na, high Mg. Flatus absent. No BM since 08/21. Current PN was appropriate. Will continue to monitor and follow. (08/23) Pt was discussed during AM rounds. Pt remained severely jaundice. 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 Pt hasnt pass gas since surgery. Pt has been NPO/clear liquid/full liquid x 10days. PN was scheduled to start TPN this evening; order has been placed. Will continue to monitor and follow. (08/20) Chart reviewed. Labs and meds reviewed. BG 120 190. Visited pt in the room. Pt tolerated full liquids well. Possible procedure tomorrow. Pt denied any nausea or vomiting. LBM 08/20. No chewing or swallowing difficulty noted. Will cont to monitor. Please consult as needed. (08/13) Chart reviewed. Labs and meds reviewed. 68yo F, who was admitted for generalized rash and jaundice. GI consulted for possible ERCP. 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 Pt denied chewing/swallowing problems and nausea/vomiting. Pt was NPO; clear liquid was later ordered. Will cont to monitor. Please consult as needed. 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 PMH: Diabetes mellitus and hypertension GI: abdomen large, round, tender, flatus present Skin: no wound pressure noted Labs: (09/11) BUN 36 H, Creatinine 1.23 H, Glucose 228 H (09/06) Na 146 H, K 3.1 L, BUN 38 H, Creatinine 1.29 H, Mg 2.3 H, iron 13 L, TIBC 90 L, transferring <70 L, ferritin 728 H (09/03) BUN 34 H, Glucose 99 240 H (08/29) BUN 34 H, Glucose 180 246 H (08/26) BUN 40 H, Glucose 100 - 190+, Mg 2.4 H (08/23) Na 135 L, glucose 130 220, Ca 8.1 L, phos 4.8 H, Meds: abx, protonix, insulin, lasix Ht: 64in Wt: 188.44lb; 196.19lb; 191lb; 193.5lb; 198.13lb; 219.38lb; 206.13lb; 191.25lb BMI: 32.8kg/m2 IBW: 120lb Malnutrition Evaluation (08/24/2018) The patient does not meet criteria for a specified degree of malnutrition at this time. Will re-evaluate at follow-up as appropriate. Energy intake: <75% of estimated energy requirements for >7 days Weight loss: Unable to evaluate since weights have been inconsistent Fat loss: N/A Muscle loss: N/A Supporting Evidence: Fluid accumulation: unable to evaluate Functional Status: no changes Nutrition Prescription (Diet Order): NPO Estimated Nutritional Needs: Calories: 1210 1375kcal (22-25kcal/kg/d) Weight used: IBW Protein: 83 138g (1.5-2.5g/kg/d) Weight used: IBW Diet Adequacy: meeting calorie needs, meeting protein needs Diet Education Needs Assessment: Diet education indicated, but patient not appropriate for education at this time. Nutrition Care Level: mod Nutrition Diagnosis: Inadequate oral intake related to acute illness as evidenced by pt requiring PN as main source of nutrition. Goal: Patient will meet 75-100% of estimated needs by follow up Progress: N/A Interventions: Composition, Rate, Route Monitoring/Evaluation: Total energy intake, Total protein intake, Formula/Solution, Labs, Weight change Signed: Christine Marsh, , RD, LD
[2018-09-11] MEDS ORDERED: FUROSEMIDE INJ 10 MG/ML 4 ML VIAL IV NR (17:00)
[2018-09-11] MEDS: ENOXAPARIN SOD INJ 40 MG/0.4 ML SYR SC SCH (18:00)
[2018-09-11] MEDS: MICAFUNGIN SODIUM 100 ML IV SCH (18:00)
[2018-09-11] MEDS ORDERED: FUROSEMIDE INJ 10 MG/ML 4 ML VIAL IV ONE (19:15)
[2018-09-11] MEDS ORDERED: CENTRAL TPN FORMULA 1 BAG IV SCH (20:00)
--- NOTE | 2018-09-11 20:49 | NUR ---
Correction to EMedAR administration for TPN - infusion site is RIJ TLC CVC.
--- NOTE | 2018-09-11 21:35 | NUR ---
Report given to Buzz RN and pt transferred to IMCU room 199. No signs of distress noted at this time.
--- NOTE | 2018-09-11 22:32 | NUR ---
PATIENT JUST MOVED FROM ICU TO 199, SHE IS CONNECTED TO LOW SUCTION NGTUBE, GREEN LIQUID SECRETION NOTED, GAVE HER MOUTH HYGIENE WITH LEMON SWAB, SHE IS NPO. FAMILY IS ON BED SIDE, NO DISTRESS NOTED, WILL CONTINUE TO MONITOR.
[2018-09-12] VITALS (7 sets, daily range): BP systolic 138–150; BP diastolic 54–63
[2018-09-12] MEDS: LEVALBUTEROL HCL SOLN NEBU 0.63 MG/3 ML NEB INH SCH ×4 (01:00→20:00)
[2018-09-12] MEDS: IPRATROPIUM BROMIDE 0.02% 2.5 ML NEB NEB SCH ×4 (01:00→20:00)
[2018-09-12] MEDS ORDERED: CEFOXITIN 1GM/ D5W 50ML 50 ML IV ONE (03:49)
[2018-09-12] MEDS: PANTOPRAZOLE 40 MG 10ML VIAL IV SCH ×2 (04:04→16:30)
[2018-09-12] MEDS: SODIUM CHLORIDE 0.9% IV SCH ×3 (04:04→16:48)
[2018-09-12] MEDS: CEFOXITIN SODIUM IV SCH ×3 (04:04→16:48)
[2018-09-12] MEDS: INSULIN LISPRO 100 UNIT/1 ML 3ML VIAL SQ SCH ×3 (05:16→17:42)
[2018-09-12 06:03] LABS: BASOPHILS % 0.3 % (0.0-1.0); EOSINOPHILS # (AUTO) 0.1 (0.0-0.4); EOSINOPHILS % 1.1 % (0.0-6.0); HEMATOCRIT 28.4 % (34.2-44.1); HEMOGLOBIN 9.3 g/dL (12.0-16.0); LYMPHOCYTES # (AUTO) 3.1 (1.0-3.2); LYMPHOCYTES % 27.6 % (18.0-39.1); MEAN CORPUSCULAR HGB CONC 32.7 g/dL (31-35); MEAN CORPUSCULAR VOLUME 91.6 fL (81-99); MONOCYTES % 8.5 % (4.4-11.3); NEUTROPHILS % 61.7 % (38.7-80.0); PLATELET COUNT 141 x10e3/uL (140-360); RED CELL DISTRIBUTION WIDTH 20.1 % (11.7-14.4)
[2018-09-12 06:29] LABS: ANION GAP 13.1 mmol/L (8-16); CALCIUM 8.8 mg/dL (8.4-10.2); CREATININE, SERUM 1.14 mg/dL (0.57-1.11); MAGNESIUM 1.6 MG/DL (1.3-2.1); POTASSIUM 3.1 mmol/L (3.5-5.1)
--- NOTE | 2018-09-12 06:55 | NUR ---
reports given to upcoming shift nurse.
[2018-09-12] MEDS: AMMONIUM LACTATE 12% LOTION 225GM BTL TOP SCH (07:52)
[2018-09-12] MEDS: FUROSEMIDE INJ 10 MG/ML 4 ML VIAL IV SCH (07:52)
[2018-09-12] MEDS: MORPHINE SULFATE INJ 4 MG/ML INJ 1ML IV PRN (11:26)
--- NOTE | 2018-09-12 13:10 | NUR ---
PER CASE MANAGEMENT RECEIVED ROOM FOR KBA PT REPORT TO BE CALLED AFTER 7PM
--- NOTE | 2018-09-12 13:47 | NUR ---
PT ACCEPTED TO ROOM 217 AT [facility] TODAY AFTER 7PM NURSE NOTIFIED MOT ON FRONT OF ENVELOPE ON DESK DC ORDERS REC'D
--- NOTE | 2018-09-12 16:16 | NUR ---
WOUND CARE SCREEN: PATIENT'S ALBERTO SCORE IS 23 AND APPROPRIATE MEASURES ARE IN PLACE. PATIENT HAS A ARMANDO DRAIN X 2 TO THE RLQ OF THE ABDOMEN. PATIENT ALSO HAS A MIDLINE ABDOMINAL INCISION THAT IS HEALED AND CHEMICAL OPERATIONS AND TRAINING. PATIENT HAS ALTERNATING PRESSURE RELIEF MATTRESS IN PLACE, BILATERAL HEEL PROTECTORS WITH PILLOW SUSPENSION IS IN PLACE AND TURN EVERY 2 HOURS AND PRN IS BEING ENFORCED. THANK YOU FOR THIS WOUND CARE SCREEN. Addendum: 09/12/18 at 1626 by Andra Dunn RN Amended: Links added.
[2018-09-12] MEDS: ENOXAPARIN SOD INJ 40 MG/0.4 ML SYR SC SCH (16:48)
[2018-09-12] MEDS: MICAFUNGIN SODIUM 100 ML IV SCH (17:40)
--- NOTE | 2018-09-12 19:29 | NUR ---
called and spoke to Lisa Padron SUPPLY MANAGER,reported blood culture result which is yeast positive, no order obtained.
[2018-09-12] MEDS ORDERED: CENTRAL TPN FORMULA 1 BAG IV SCH (20:00)
[2018-09-12] MEDS ORDERED: DEXTROSE 10% 0 ML IV ONE (20:13)
--- NOTE | 2018-09-12 20:13 | NUR ---
called reports, patient will be transferred to [facility].
--- NOTE | 2018-09-12 21:06 | NUR ---
discharge patient to [facility] with EMS, belongings with her daughter, no distress noted.
--- NOTE | 2018-09-13 04:44 | Progress Note ---
DATE: 09/12/2018 SUBJECTIVE: Ms. Schmitt is a 68-year-old white Latin-E[place]ian female, who has been in [facility] since August 12 and the patient when she first came, she had pruritus, she had biliary filling defect consistent with a lesion, underwent surgery. The patient on September 10, had intraabdominal abscess and underwent drainage. Her blood culture showed yeast on September 09. The patient has been on cefoxitin and micafungin. The patient seems to be stable now. No fever since September 11. REVIEW OF SYSTEMS: Otherwise, she is just weak at the present time. PHYSICAL EXAMINATION: HEENT: She is not icteric. NECK: Supple. CHEST: Clear. HEART: S1 and S2. No murmur. ABDOMEN: Soft. Bowel sounds present. No tenderness. EXTREMITIES: No edema. SKIN: There is no rash. IMPRESSION: 1. Fungemia, to finish 14 days of micafungin. Await identification of the yeast. If it is Tia albicans, can switch to fluconazole. The line was removed. The plan is to continue that for 2 weeks. 2. Periampullary tissue biopsy showing duodenitis, status post surgery by Dr. Omer, status post fluid collection, now on Mefoxin. We will recheck CT scan in a few more days. If still present, then we will consider aspiration CT-guided and send for culture and sensitivity. MD HAKAN Lenz/AVEL /[id number]
--- NOTE | 2018-09-13 11:10 | Discharge Summary ---
ADMISSION DIAGNOSES: 1. Jaundice. 2. Urinary tract infection, diabetes. 3. Hypertension. DISCHARGE DIAGNOSES: 1. Jaundice. 2. Urinary tract infection. 3. Diabetes. 4. Hypertension. 5. Status post Whipple. 6. Status post resection of jejunojejunostomy and recreation of jejunojejunostomy. 7. Status post exploratory laparotomy, lysis of adhesions and drainage of interloop collections/abscess. HISTORY: The patient has a history of type 2 diabetes and high blood pressure. SURGICAL HISTORY: Cholecystectomy. PERSONAL HISTORY: Noncontributory. HOSPITAL COURSE: A 68-year-old female admitted to [facility] for UTI and jaundice. Urine cultures were contaminated, but the patient finished 7 days of Rocephin for UTI. CT of the abdomen showed significant intrahepatic and extrahepatic biliary dilatation with abrupt cutoff near the ampulla with a questionable 1 cm ampullary lesion. MRCP found a 2.0 x 2.6 cm mass within the pancreatic head. ERCP showed an ulcerated friable lesion upon the ampulla that could not be cannulated. On 08/22/2018, the patient had a pancreaticoduodenectomy. On 08/24/2018, the patient was taken back to the OR due to intra-abdominal bleeding, status post Whipple. She then had a resection and recreation of the jejunostomy. After being unable to tolerate p.o., she was taken back to the OR on 09/09/2018 for an exploratory laparotomy with lysis of adhesions and drainage of interloop collection/abscess. Ampullary lesion biopsy showed no significant malignancy identified. 09/03/2018 urine culture and 09/09/2018 blood cultures were positive for yeast. Infectious Disease started the patient on cefoxitin and micafungin. The patient had the right IJ removed and the left IJ placed on 09/11/2018. The patient was then transferred to [facility] for long-term antibiotics, PT, OT, slow diet advancement, and close physician monitoring. The patient and family understand discharge instructions and agreed to plan. Vital signs stable. The patient afebrile. Dictated by Lisa Kruger NP MD HAROON Mayberry/MODL /[id number]
== END 2018-09-12 21:05 | DRG 405 ==
LOC: ER 10:14 → ERHOLD 16:42 → MED/SURG3 20:16 → ICU 08-22 15:58 → MED/SURG3 08-29 15:51 → ICU 09-05 06:40 → IMCU 09-09 19:05 → ICU 09-09 21:12 → IMCU 09-11 21:40
PROVIDERS: ADMIT Internal Medicine; ATTEND Internal Medicine
PROC: 0FBC8ZX Excision of Ampulla of Vater, Via Natural or Artificial Opening Endoscopic, Diagnostic (ICD-10-PCS; principal; 2018-08-14 14:22)
PROC: 30233K1 Transfusion of Nonautologous Frozen Plasma into Peripheral Vein, Percutaneous Approach (ICD-10-PCS; 2018-08-21)
PROC: 30233N1 Transfusion of Nonautologous Red Blood Cells into Peripheral Vein, Percutaneous Approach (ICD-10-PCS; 2018-08-22)
PROC: 0DT90ZZ Resection of Duodenum, Open Approach (ICD-10-PCS; 2018-08-22)
PROC: 0DTA0ZZ Resection of Jejunum, Open Approach (ICD-10-PCS; 2018-08-22)
PROC: 0FBG0ZZ Excision of Pancreas, Open Approach (ICD-10-PCS; 2018-08-23)
PROC: 0DB90ZZ Excision of Duodenum, Open Approach (ICD-10-PCS; 2018-08-23)
PROC: 0DB60ZZ Excision of Stomach, Open Approach (ICD-10-PCS; 2018-08-23)
PROC: 3E0436Z Introduction of Nutritional Substance into Central Vein, Percutaneous Approach (ICD-10-PCS; 2018-08-23)
PROC: 0D1A0ZA Bypass Jejunum to Jejunum, Open Approach (ICD-10-PCS; 2018-08-24)
PROC: 0DCA0ZZ Extirpation of Matter from Jejunum, Open Approach (ICD-10-PCS; 2018-08-24)
PROC: 30233R1 Transfusion of Nonautologous Platelets into Peripheral Vein, Percutaneous Approach (ICD-10-PCS; 2018-08-24)
PROC: 0DNA0ZZ Release Jejunum, Open Approach (ICD-10-PCS; 2018-09-09)
PROC: 0DNL0ZZ Release Transverse Colon, Open Approach (ICD-10-PCS; 2018-09-09)
PROC: 0D9 Gastrointestinal System, Drainage (ICD-10-PCS; 2018-09-09)
PROC: 0DJV4ZZ Inspection of Mesentery, Percutaneous Endoscopic Approach (ICD-10-PCS; 2018-09-09)
DX: C25.0 Malignant neoplasm of head of pancreas (principal); K83.1 Obstruction of bile duct; N17.0 Acute kidney failure with tubular necrosis; K65.1 Peritoneal abscess; J96.00 Acute respiratory failure, unspecified whether with hypoxia or hypercapnia; K91.841 Postprocedural hemorrhage of a digestive system organ or structure following other procedure; K94.11 Enterostomy hemorrhage; B37.49 Other urogenital candidiasis; K56.50 Intestinal adhesions [bands], unspecified as to partial versus complete obstruction; T81.43XA Infection following a procedure, organ and space surgical site, initial encounter; E87.2 Acidosis; E87.0 Hyperosmolality and hypernatremia; D68.4 Acquired coagulation factor deficiency; K91.62 Intraoperative hemorrhage and hematoma of a digestive system organ or structure complicating other procedure; E80.6 Other disorders of bilirubin metabolism; D63.8 Anemia in other chronic diseases classified elsewhere; E11.9 Type 2 diabetes mellitus without complications; I10 Essential (primary) hypertension; E78.5 Hyperlipidemia, unspecified; R21 Rash and other nonspecific skin eruption; Z83.3 Family history of diabetes mellitus; L29.8 Other pruritus; Z79.84 Long term (current) use of oral hypoglycemic drugs; I95.9 Hypotension, unspecified; Y83.8 Other surgical procedures as the cause of abnormal reaction of the patient, or of later complication, without mention of misadventure at the time of the procedure; Y92.234 Operating room of hospital as the place of occurrence of the external cause; Z90.49 Acquired absence of other specified parts of digestive tract; J02.9 Acute pharyngitis, unspecified; K74.60 Unspecified cirrhosis of liver; R34 Anuria and oliguria; E83.51 Hypocalcemia; E83.41 Hypermagnesemia; R06.89 Other abnormalities of breathing
CPT/HCPCS: 36415; 36580; 36600; 43260; 71045; 71046; 74018; 74176; 74177; 74181; 76000; 76937; 80048; 80053; 80076; 81001; 81015; 82150; 82330; 82436; 82550; 82553; 82570; 82607; 82728; 82746; 82805; 82947; 82948; 83036; 83540; 83615; 83690; 83735; 83880; 84100; 84134; 84300; 84439; 84443; 84466; 84478; 84484; 85007; 85014; 85018; 85025; 85027; 85610; 85730; 86301; 86677; 86705; 86803; 86850; 86900; 86920; 87040; 87071; 87086; 87205; 87340; 88305; 88307; 88309; 88331; 88342; 93005; 93306; 94002; 94003; 94640; 94660; 96361; 96366; 96372; 97139; 99284; C1751; J0690; J0694; J0696; J1200; J1450; J1610; J1630; J1644; J1650; J1815; J1940; J2001; J2060; J2248; J2250; J2270; J2370; J2405; J2543; J2550; J2765; J3370; J3430; J3480; J7030; J7050; J7060; J7070; J7121; J7799; P9016; P9017; P9034; P9047; Q9967

== ENCOUNTER 2019-09-07 00:50 | Inpatient (IN) | payer MEDICARE ==
[2019-09-07] VITALS (20 sets, daily range): BP systolic 86–137; BP diastolic 48–73
[~2019-09-07] VITALS: Ht 162.6 cm; Wt 67.6 kg
[~2019-09-07 00:50] MED LIST: LISINOPRIL2.5 MG PO; LOVASTATIN20 MG; METFORMIN HCL1000 MG PO; PERMETHRIN60 GM TOP; PIOGLITAZONE HC45 MG PO; VITAMIN D1000 UNI1 PO
[2019-09-07] MEDS ORDERED: CEFEPIME 2 GM/NS 0.9% 100 ML 100 ML IV SCH (01:00)
[2019-09-07] MEDS ORDERED: ACETAMINOPHEN 325 MG TAB PO ONE (01:00)
[2019-09-07] MEDS ORDERED: SODIUM CHLORIDE 0.9% 1000ML 1,000 ML IV SCH (01:00)
[2019-09-07] MEDS ORDERED: SODIUM CHLORIDE 0.9% 1000ML 1,000 ML IV ONE (02:00)
[2019-09-07 02:11] LABS: BASOPHILS % 0.4 % (0.0-1.0); EOSINOPHILS # (AUTO) 0.8 (0.0-0.4); EOSINOPHILS % 14.7 % (0.0-6.0); LYMPHOCYTES # (AUTO) 0.2 (1.0-3.2); LYMPHOCYTES % 3.3 % (18.0-39.1); MEAN CORPUSCULAR HEMOGLOBIN 34.2 pg (28-32); MEAN CORPUSCULAR HGB CONC 32.5 g/dL (31-35); MONOCYTES # (AUTO) 0.1 (0.2-0.8); MONOCYTES % 0.9 % (4.4-11.3); NEUTROPHILS # (AUTO) 4.3 (2.1-6.9); NEUTROPHILS % 78.7 % (38.7-80.0); PLATELET COUNT 88 x10e3/uL (140-360); RED BLOOD COUNT 2.02 x10e6/uL (3.6-5.1)
[2019-09-07 02:18] LABS: INR 1.3; PROTHROMBIN TIME 17.1 seconds (11.9-14.5)
[2019-09-07 02:19] LABS: PARTIAL THROMBOPLASTIN TIME 20.8 seconds (23.8-35.5)
[2019-09-07 02:22] LABS: HEMATOCRIT 21.2 % (34.2-44.1); HEMOGLOBIN 6.9 g/dL (12.0-16.0)
[2019-09-07 02:24] LABS: ALBUMIN 2.1 g/dL (3.5-5.0); ALBUMIN/GLOBULIN RATIO 0.7 (0.8-2.0); ANION GAP 15.4 mmol/L (8-16); CALCIUM 8.4 mg/dL (8.4-10.2); CREATININE, SERUM 1.26 mg/dL (0.57-1.11); POTASSIUM 4.4 mmol/L (3.5-5.1)
[2019-09-07 02:51] LABS: CREATINE KINASE MB 0.3 ng/mL (0-5.0)
--- NOTE | 2019-09-07 03:02 | Diagnostic Imaging Report ---
EXAMINATION: CHEST SINGLE (PORTABLE) INDICATION: Fever. COMPARISON: Chest radiograph 09/11/2018. FINDINGS: TUBES and LINES: None. LUNGS: Lungs are mildly hyperinflated. There is bronchial wall thickening. No evidence of lobar pneumonia. Mild patchy left basilar opacity, likely atelectasis. PLEURA: No pleural effusion or pneumothorax. HEART AND MEDIASTINUM: The cardiomediastinal silhouette is unremarkable. BONES AND SOFT TISSUES: No acute osseous lesion. Soft tissues are unremarkable. UPPER ABDOMEN: No free air under the diaphragm. IMPRESSION: Hyperinflated lungs with bronchial wall thickening, suggestive of bronchitis. No evidence of lobar pneumonia. Signed by: Dr. Serge Virk MD on 09/07/2019 2:58 AM
[2019-09-07] MEDS ORDERED: ONDANSETRON HCL INJ 2MG/ML 2ML 2 MG/ML VIAL IV PRN (03:30)
[2019-09-07] MEDS ORDERED: LIDOCAINE HCL 1% LOCAL INJ 20 ML VIAL ONE (03:53)
--- NOTE | 2019-09-07 03:56 | NUR ---
CL BEING PLACED AT BEDSIDE BY DR Sandra SHAHID AT THIS TIME.
--- NOTE | 2019-09-07 04:26 | Diagnostic Imaging Report ---
EXAMINATION: CHEST XRAY LINE PLACEMENT INDICATION: Central line placement. COMPARISON: Chest radiograph 09/07/2019. FINDINGS: TUBES and LINES: Interval placement of a right IJ central venous catheter which terminates in the lower SVC. LUNGS: Lungs are mildly hyperinflated. There is bronchial wall thickening. No evidence of lobar pneumonia. Mild patchy left basilar opacity, likely atelectasis. PLEURA: No pleural effusion or pneumothorax. HEART AND MEDIASTINUM: The cardiomediastinal silhouette is unremarkable. There are atherosclerotic calcifications within the aorta. BONES AND SOFT TISSUES: No acute osseous lesion. Soft tissues are unremarkable. UPPER ABDOMEN: No free air under the diaphragm. IMPRESSION: Interval placement of right IJ central venous catheter which terminates in the lower SVC. No evidence of pneumothorax. Hyperinflated lungs with bronchial wall thickening, suggestive of bronchitis. No evidence of lobar pneumonia. Signed by: Dr. Serge Virk MD on 09/07/2019 4:23 AM
--- NOTE | 2019-09-07 04:29 | Operative Report ---
DATE OF PROCEDURE: SURGEON: Jon Newton MD PROCEDURE: Central line placement under ultrasound guidance. PREOPERATIVE DIAGNOSIS: Pancreatic cancer. POSTOPERATIVE DIAGNOSIS: Pancreatic cancer. CONSENT: Consent was obtained from the patient and the daughter. ANESTHESIA: 1% lidocaine was used for local anesthesia. DESCRIPTION OF PROCEDURE: The patient was placed in a supine position. The right neck was prepped sterilely with chlorhexidine. An ultrasound machine was used to locate the right internal jugular vein. The vein was then cannulated under direct visualization with a 16-gauge needle. A wire was passed through the vein. A dilator was used over the wire to dilate the skin. A triple-lumen catheter was then placed over the wire by the Seldinger technique. All the ports flushed. COMPLICATIONS: None. ESTIMATED BLOOD LOSS: None. Jon Newton MD LMH/MODL /[id number]
[2019-09-07] MEDS ORDERED: ZOLPIDEM TARTRATE 5 MG TAB PO PRN (04:30)
[2019-09-07] MEDS ORDERED: ACETAMINOPHEN 325 MG TAB PO PRN (04:30)
[2019-09-07] MEDS ORDERED: SODIUM CHLORIDE 0.9% 250ML 250 ML IV ONE (04:30)
[2019-09-07] MEDS ORDERED: DEXTROSE 50% SYRINGE 50 ML IV PRN (04:30)
[2019-09-07] MEDS ORDERED: VANCOMYCIN 1GM/NS 250 ML 250 ML IV ONE (04:30)
[2019-09-07 05:11] LABS: CLARITY,URINE CLOUDY (CLEAR); COLOR,URINE ORANGE (YELLOW)
[2019-09-07 05:12] LABS: BILIRUBIN,URINE MODERATE (NEGATIVE); KETONES,URINE 1+ (NEGATIVE); LEUKOCYTE ESTERASE ,URINE NEGATIVE (NEGATIVE); NITRITE,URINE POSITIVE (NEGATIVE); PROTEIN,URINE DIPSTICK 2+ (NEGATIVE); URINE UROBILINOGEN 0.2 mg/dL (0.2 - 1)
--- NOTE | 2019-09-07 05:16 | NUR ---
ER MD AND PRIMARY RN NOTIFIED AND AWARE OF CRITICAL LAB VALUE, LACTIC ACID 4.9.
[2019-09-07 05:43] LABS: BACTERIA,URINE FEW /HPF; EPITHELIAL CELLS,URINE FEW /LPF
--- NOTE | 2019-09-07 06:00 | Consultation ---
DATE OF CONSULTATION: PULMONARY CRITICAL CARE CONSULTATION CHIEF COMPLAINT: Fever, low blood pressure in a chemotherapy patient. HISTORY OF PRESENT ILLNESS: The patient is a 69-year-old woman. She had a Whipple procedure a year ago for pancreatic cancer. She is subsequently receiving chemotherapy through Dr. Allen. Over the last 3 days, she has had more malaise. She has noted some fevers and weakness. When she came to the emergency department, she was found to have tachycardia and low blood pressure. She also had some anemia and temperature. She was started on antibiotics and received a fluid bolus. PAST SURGICAL HISTORY: Status post Whipple procedure as noted above. PAST MEDICAL HISTORY: 1. History of fungemia, treated at [facility] about a year ago. 2. Hypertension. 3. Diabetes. SOCIAL HISTORY: The patient is not an active smoker or drinker. ALLERGIES: NO KNOWN DRUG ALLERGIES. FAMILY HISTORY: Family history is noncontributory. REVIEW OF SYSTEMS: The patient did have some fevers. She has no headache. She has no neck pain. She does have weakness. She does not complain of chest pain. She has some dyspnea as well as a cough. She has no phlegm production. She has no abdominal pain. She has no nausea or vomiting. She has no leg edema. Skin examination shows no rashes. Neurological exam shows no focal abnormalities. She has no leg edema. She has no focal neurological complaints. PHYSICAL EXAMINATION: VITAL SIGNS: The blood pressure is 100/50 and the heart rate is 120-130. The respiratory rate is 25. HEENT: Shows no facial swelling or erythema. LYMPHATIC: Shows no submandibular, cervical, or supraclavicular adenopathy. CARDIAC: Reveals tachycardia with normal S1 and S2. LUNGS: Auscultation of lungs reveals rhonchorous breath sounds bilaterally. There is no wheezing. ABDOMEN: Soft, nontender. There is no rebound or guarding. EXTREMITIES: Show no leg edema or calf tenderness. There is no cyanosis or clubbing. SKIN: Shows no rashes. NEUROLOGICAL: Shows no focal abnormalities. LABORATORY DATA: BUN to creatinine ratio is 18 to 1.26. The lactic acid is 8.2. Sodium is 133. Other electrolytes are within normal limits. Hemoglobin is 6.9 and white blood cell count is 5.4. The platelet count is 88. Urine shows 6-10 white blood cells. IMPRESSION: 1. Healthcare-associated pneumonia with sepsis, present on admission. 2. Acute kidney injury. 3. Anemia secondary to chronic blood loss. 4. Thrombocytopenia. 5. Pancreatic cancer with ongoing chemotherapy. 6. Diabetes with hyperglycemia. PLAN: 1. The patient will receive a fluid bolus 30 mL/kg along with monitoring of the lactic acid. 2. Panculture patient and begin broad-spectrum antibiotics. 3. Continue to monitor renal function. 4. Monitor and control blood sugars. 5. Packed red blood cells as needed. 6. Consult Oncology as well as Infectious Disease. Jon Newton MD [facility]/MODL /[id number]
[2019-09-07] MEDS: SODIUM CHLORIDE 0.9% 1000ML 1,000 ML IV SCH ×3 (06:28→16:38)
[2019-09-07 07:59] LABS: BASOPHILS % 0.5 % (0.0-1.0); EOSINOPHILS # (AUTO) 0.1 (0.0-0.4); EOSINOPHILS % 0.8 % (0.0-6.0); LYMPHOCYTES # (AUTO) 0.3 (1.0-3.2); LYMPHOCYTES % 3.3 % (18.0-39.1); MEAN CORPUSCULAR HEMOGLOBIN 34.2 pg (28-32); MEAN CORPUSCULAR HGB CONC 32.8 g/dL (31-35); MEAN CORPUSCULAR VOLUME 104.3 fL (81-99); MONOCYTES # (AUTO) 0.2 (0.2-0.8); MONOCYTES % 2.6 % (4.4-11.3); NEUTROPHILS # (AUTO) 7.6 (2.1-6.9); PLATELET COUNT 71 x10e3/uL (140-360); RED BLOOD COUNT 1.87 x10e6/uL (3.6-5.1); RED CELL DISTRIBUTION WIDTH 15.2 % (11.7-14.4)
[2019-09-07 08:02] LABS: HEMATOCRIT 19.5 % (34.2-44.1); HEMOGLOBIN 6.4 g/dL (12.0-16.0)
[2019-09-07] MEDS: CEFEPIME 2 GM/NS 0.9% 100 ML 100 ML IV SCH ×3 (08:07→21:29)
[2019-09-07] MEDS: AZITHROMYCIN 500MG/NS 250 ML 250 ML IV SCH (08:37)
[2019-09-07] MEDS: INSULIN REGULAR, HUMAN 100 UNIT/1 ML 3ML VIAL SQ SCH ×4 (08:45→21:29)
[2019-09-07] MEDS ORDERED: CHOLECALCIFEROL 1,000 UNIT TAB PO SCH (09:00)
[2019-09-07 09:06] LABS: EOSINOPHILS % (MANUAL) 12 % (0-7); LYMPHOCYTES % (MANUAL) 2 % (19-48); NEUTROPHILS % (MANUAL) 86 % (40-74)
[2019-09-07] MEDS ORDERED: SODIUM CHLORIDE 0.9% 250ML 250 ML ONE ×2 (09:16→15:11)
[2019-09-07] MEDS ORDERED: BENZONATATE 100 MG CAP PO PRN (11:45)
[2019-09-07 13:00] LABS: BASOPHILS # (AUTO) 0.1 (0.0-0.1); BASOPHILS % 0.5 % (0.0-1.0); EOSINOPHILS # (AUTO) 0.1 (0.0-0.4); EOSINOPHILS % 0.4 % (0.0-6.0); HEMOGLOBIN 7.8 g/dL (12.0-16.0); LYMPHOCYTES # (AUTO) 0.4 (1.0-3.2); LYMPHOCYTES % 3.1 % (18.0-39.1); MEAN CORPUSCULAR HEMOGLOBIN 33.3 pg (28-32); MEAN CORPUSCULAR HGB CONC 33.9 g/dL (31-35); MEAN CORPUSCULAR VOLUME 98.3 fL (81-99); MONOCYTES # (AUTO) 0.2 (0.2-0.8); MONOCYTES % 1.8 % (4.4-11.3); NEUTROPHILS # (AUTO) 9.4 (2.1-6.9); NEUTROPHILS % 84.3 % (38.7-80.0); RED BLOOD COUNT 2.34 x10e6/uL (3.6-5.1); RED CELL DISTRIBUTION WIDTH 17.3 % (11.7-14.4)
[2019-09-07 13:16] LABS: PLATELET COUNT 49 x10e3/uL (140-360)
[2019-09-07] MEDS ORDERED: HYDRALAZINE HCL 20 MG/ML VIAL IV PRN (17:30)
[2019-09-07] MEDS ORDERED: ACETAMINOPHEN/CODEINE 300MG - 30MG TAB PO PRN (17:30)
[2019-09-07] MEDS: ENOXAPARIN 30 MG/0.3 ML SYR SC SCH (17:54)
[2019-09-08] VITALS (21 sets, daily range): BP systolic 118–145; BP diastolic 58–79
[2019-09-08 05:01] LABS: BASOPHILS # (AUTO) 0.1 (0.0-0.1); BASOPHILS % 0.4 % (0.0-1.0); EOSINOPHILS % 0.1 % (0.0-6.0); HEMATOCRIT 23.7 % (34.2-44.1); LYMPHOCYTES # (AUTO) 0.7 (1.0-3.2); LYMPHOCYTES % 4.8 % (18.0-39.1); MEAN CORPUSCULAR HEMOGLOBIN 33.1 pg (28-32); MEAN CORPUSCULAR HGB CONC 33.8 g/dL (31-35); MEAN CORPUSCULAR VOLUME 97.9 fL (81-99); MONOCYTES # (AUTO) 0.7 (0.2-0.8); MONOCYTES % 4.9 % (4.4-11.3); NEUTROPHILS # (AUTO) 10.6 (2.1-6.9); NEUTROPHILS % 77.2 % (38.7-80.0); PLATELET COUNT 54 x10e3/uL (140-360); RED BLOOD COUNT 2.42 x10e6/uL (3.6-5.1); RED CELL DISTRIBUTION WIDTH 17.9 % (11.7-14.4)
[2019-09-08 06:50] LABS: ALANINE AMINOTRANSFERASE 63 IU/L (0-55); ALBUMIN 1.7 g/dL (3.5-5.0); ALBUMIN/GLOBULIN RATIO 0.6 (0.8-2.0); ALKALINE PHOSPHATASE 273 IU/L (40-150); ANION GAP 6.9 mmol/L (8-16); BLOOD UREA NITROGEN 14 mg/dL (7-26); BUN/CREATININE RATIO 23 (6-25); CALCIUM 7.2 mg/dL (8.4-10.2); CARBON DIOXIDE 17 mmol/L (22-29); CHLORIDE 117 mmol/L (98-107); CREATININE, SERUM 0.62 mg/dL (0.57-1.11); EST GLOMERULAR FILTRATION RATE > 60 ML/MIN (60-); GLUCOSE 66 mg/dL (74-118); SODIUM 138 mmol/L (136-145)
[2019-09-08 06:52] LABS: POTASSIUM 2.9 mmol/L (3.5-5.1)
--- NOTE | 2019-09-08 06:59 | Diagnostic Imaging Report ---
EXAMINATION: CHEST SINGLE (PORTABLE) INDICATION: Fever. COMPARISON: Chest radiograph 09/07/2019. FINDINGS: TUBES and LINES: Right IJ central venous catheter which terminates in the lower SVC. LUNGS: Lungs are mildly hyperinflated. There is bronchial wall thickening. Increasing patchy right lower lung opacities and bilateral perihilar and interstitial opacities. PLEURA: No pleural effusion or pneumothorax. HEART AND MEDIASTINUM: The cardiomediastinal silhouette is unremarkable. There are atherosclerotic calcifications within the aorta. BONES AND SOFT TISSUES: No acute osseous lesion. Soft tissues are unremarkable. UPPER ABDOMEN: No free air under the diaphragm. IMPRESSION: Increasing multifocal patchy and interstitial opacities, compatible with pneumonia. Signed by: Dr. Serge Virk MD on 09/08/2019 6:56 AM
[2019-09-08] MEDS: CEFEPIME 2 GM/NS 0.9% 100 ML 100 ML IV SCH ×3 (07:00→22:00)
[2019-09-08] MEDS: SODIUM CHLORIDE 0.9% 1000ML 1,000 ML IV SCH ×3 (07:28→19:49)
[2019-09-08] MEDS: INSULIN REGULAR, HUMAN 100 UNIT/1 ML 3ML VIAL SQ SCH ×4 (07:30→20:10)
[2019-09-08] MEDS: FAMOTIDINE 20 MG TAB PO SCH ×2 (08:10→16:51)
[2019-09-08] MEDS: AZITHROMYCIN 500MG/NS 250 ML 250 ML IV SCH (08:25)
[2019-09-08] MEDS ORDERED: POTASSIUM CHLORIDE 20 MEQ TAB CR PO ONE (08:30)
[2019-09-08 09:08] LABS: LYMPHOCYTES % (MANUAL) 4 % (19-48); MONOCYTES % (MANUAL) 4 % (3.4-9.0); NEUTROPHILS % (MANUAL) 92 % (40-74)
[2019-09-08] MEDS ORDERED: ALBUTEROL/IPRATROPIUM 3 ML NEB NEB PRN (13:15)
--- NOTE | 2019-09-08 14:10 | Consultation ---
DATE OF CONSULTATION: REASON FOR CONSULTATION: Sepsis. HISTORY OF PRESENT ILLNESS: This patient, who is a 69-year-old female. She had a Whipple procedure done a year ago. She has pancreatic cancer. She is on chemotherapy for the last 3 months according to the family by Dr. Allen. She is coming with fever and chills, generalized aches and pain, not feeling well. She almost passed out. She is currently in the intensive care unit. When she came into the emergency room, she was tachycardic, low blood pressure, was given IV fluid and IV antibiotics. She is currently in the intensive care unit, but she is doing much better. REVIEW OF SYSTEMS: At the present time: HEENT: Negative. PULMONARY: Negative. CARDIAC: Negative. : Negative. GI: Negative. SKIN: There is no rash. LABORATORY DATA: Her chest x-ray showed patchy infiltrate consistent with pneumonia. Her white count on admission was 5.44, hemoglobin 6.9, and her platelet is 49. Her influenza A and B were negative. Her blood cultures showing gram-negative rods. PHYSICAL EXAMINATION: GENERAL: She is currently alert and oriented. Does not seem to be in acute distress. VITAL SIGNS: Stable, currently afebrile. HEENT: She is not icteric. NECK: Supple. CHEST: Few rhonchi bilateral. COR: S1 and S2. No S3, S4, or murmur. ABDOMEN: Soft. Bowel sounds present. No tenderness. EXTREMITIES: No edema. SKIN: No rash. IMPRESSION: Sepsis, on admission; gram-negative bacteremia, present on admission; pneumonia healthcare community-acquired, present on admission; pancreatic cancer. Agree with cefepime. Discontinue azithromycin. Agree with IV fluids. Thrombocytopenia, recheck. Diabetes mellitus with neuropathy per others. We will follow. MD HAKAN Lenz/AVEL /[id number]
--- NOTE | 2019-09-08 14:20 | Progress Note ---
DATE: SUBJECTIVE: The patient received packed red blood cells yesterday. She has no fever. She does have poor appetite. PHYSICAL EXAMINATION: VITAL SIGNS: The blood pressure is 141/74 and the pulse is 102. Saturation is 100%. HEENT: Shows no facial swelling or erythema. CARDIAC: Reveals a regular rate and rhythm with normal S1 and S2. There are no murmurs or rubs. LUNGS: Auscultation lungs reveals clear breath sounds bilaterally. There is no wheezing. ABDOMEN: Soft and nontender. There is no rebound or guarding. EXTREMITIES: Shows no leg edema or calf tenderness. There is no cyanosis or clubbing. SKIN: Shows no rashes. NEUROLOGICAL: Shows no focal abnormalities. LABORATORY DATA: White blood cell count is 13.6 and the hemoglobin is 8. The platelet count is 54. The potassium is 2.9. The BUN to creatinine ratio is normal. Other electrolytes are within normal limits. RADIOGRAPHIC DATA: Chest x-ray shows patchy alveolar infiltrates. IMPRESSION: 1. Healthcare-associated pneumonia with sepsis, present on admission. 2. Gram-negative evan bacteremia possibly related to pneumonia or urinary tract infection. 3. Anemia secondary to [id number] blood loss. 4. Thrombocytopenia. 5. Pancreatic cancer with ongoing chemotherapy. 6. Diabetes with hyperglycemia. PLAN: 1. Continue current antibiotics. 2. Await final culture results. 3. Continue to monitor blood counts. 4. Continue to monitor blood sugars. 5. Await Oncology consultation. Jon Newton MD [facility]/AVEL /[id number]
[2019-09-08] MEDS: ENOXAPARIN 30 MG/0.3 ML SYR SC SCH (16:51)
--- NOTE | 2019-09-08 16:51 | NUR ---
patient ambulated with physical therapy on unit and to toilet
--- NOTE | 2019-09-08 16:56 | NUR ---
patient sitting up in chair for dinner and tolerating well.
--- NOTE | 2019-09-08 17:40 | NUR ---
PATIENT RECEIVED FROM ICU PER WHEEL CHAIR. ALERT AND VERBALLY RESPONSIVE. RESPIRATION EVEN AND UNLABORED. DENIED PAIN AT THIS TIME. TELEMETRY B[address] OUT OF BED TO CHAIR TALKING TO FAMILY MEMBER. BLANKET PROVIDED. CALL LIGHT AT EASY REACH. INSTRUCTED TO CALL FOR ASSISTANCE NEEDED.
--- NOTE | 2019-09-08 19:12 | NUR ---
BEDSIDE SHIFT REPORT GIVEN TO ON COMING NURSE.
[2019-09-08] MEDS: ALBUTEROL/IPRATROPIUM 3 ML NEB NEB SCH (19:53)
--- NOTE | 2019-09-08 23:37 | NUR ---
IJ dressing changed
[2019-09-09] VITALS (8 sets, daily range): BP systolic 129–146; BP diastolic 63–74
[2019-09-09] MEDS: ALBUTEROL/IPRATROPIUM 3 ML NEB NEB SCH ×4 (00:47→19:38)
[2019-09-09] MEDS: SODIUM CHLORIDE 0.9% 1000ML 1,000 ML IV SCH ×4 (03:29→20:58)
[2019-09-09] MEDS: CEFEPIME 2 GM/NS 0.9% 100 ML 100 ML IV SCH ×3 (06:04→20:59)
[2019-09-09 07:03] LABS: ALANINE AMINOTRANSFERASE 47 IU/L (0-55); ALBUMIN 1.6 g/dL (3.5-5.0); ALBUMIN/GLOBULIN RATIO 0.6 (0.8-2.0); ALKALINE PHOSPHATASE 348 IU/L (40-150); ANION GAP 7.2 mmol/L (8-16); BASOPHILS % 0.3 % (0.0-1.0); BLOOD UREA NITROGEN 12 mg/dL (7-26); BUN/CREATININE RATIO 18 (6-25); CALCIUM 7.1 mg/dL (8.4-10.2); CARBON DIOXIDE 16 mmol/L (22-29); CHLORIDE 119 mmol/L (98-107); CREATININE, SERUM 0.65 mg/dL (0.57-1.11); EOSINOPHILS # (AUTO) 5.3 (0.0-0.4); EOSINOPHILS % 43.1 % (0.0-6.0); EST GLOMERULAR FILTRATION RATE > 60 ML/MIN (60-); GLUCOSE 117 mg/dL (74-118); HEMOGLOBIN 7.4 g/dL (12.0-16.0); MEAN CORPUSCULAR HEMOGLOBIN 32.3 pg (28-32); MEAN CORPUSCULAR HGB CONC 33.8 g/dL (31-35); MEAN CORPUSCULAR VOLUME 95.6 fL (81-99); MONOCYTES # (AUTO) 1.8 (0.2-0.8); MONOCYTES % 14.4 % (4.4-11.3); NEUTROPHILS # (AUTO) 5.2 (2.1-6.9); NEUTROPHILS % 42.2 % (38.7-80.0); POTASSIUM 3.2 mmol/L (3.5-5.1); RED BLOOD COUNT 2.29 x10e6/uL (3.6-5.1); RED CELL DISTRIBUTION WIDTH 17.9 % (11.7-14.4); SODIUM 139 mmol/L (136-145)
[2019-09-09 07:06] LABS: HEMATOCRIT 21.9 % (34.2-44.1)
[2019-09-09 07:07] LABS: PLATELET COUNT 45 x10e3/uL (140-360)
[2019-09-09] MEDS: INSULIN REGULAR, HUMAN 100 UNIT/1 ML 3ML VIAL SQ SCH ×4 (07:30→20:28)
[2019-09-09] MEDS: FAMOTIDINE 20 MG TAB PO SCH ×2 (08:40→16:30)
[2019-09-09] MEDS ORDERED: ERGOCALCIFEROL 50,000 UNIT CAP PO SCH (09:00)
--- NOTE | 2019-09-09 09:57 | NUR ---
CALL PLACED OUT TO DR. MCKOY'S SERVICE NUMBER- N.P. WILL CALL BACK.
--- NOTE | 2019-09-09 10:04 | NUR ---
RECEIVED CALLBACK FROM JUAN SHRESTHA N.P.- INFORMED N.P. OF PATIENT'S CRITICAL MAGNESIUM LEVEL OF 1.1, POTASSIUM LEVEL OF 3.2, PLATELET LEVEL OF 45, AND PATIENT'S CURRENTLY RUNNING ST BETWEEN 130'S AND 145. N.P. WILL LOOK OVER LAB AND WRITE IN ORDERS. NO ORDERS GIVEN TO RN AT THIS TIME.
[2019-09-09] MEDS ORDERED: MAGNESIUM SULFATE 2GM/50ML 100 ML IV ONE (10:45)
[2019-09-09 11:19] LABS: BAND NEUTROPHILS % (MANUAL) 1 %; LYMPHOCYTES % (MANUAL) 1 % (19-48); MONOCYTES % (MANUAL) 10 % (3.4-9.0); MYELOCYTES % (MANUAL) 1 % (0-0); NEUTROPHILS % (MANUAL) 87 % (40-74)
[2019-09-09 11:20] LABS: PLATELET ESTIMATE MARKEDLY DECREASED; PLATELET MORPHOLOGY COMMENT NORMAL; TOXIC GRANULATION MODERATE
[2019-09-09 11:22] LABS: RBC MORPHOLOGY COMMENT NORMAL
[2019-09-09] MEDS: ENOXAPARIN 30 MG/0.3 ML SYR SC SCH (16:32)
--- NOTE | 2019-09-09 19:00 | NUR ---
PATIENT IN STABLE CONDITION WITH NO S/S RESPIRATORY DISTRESS. NO PAIN VOICED. TELEMETRY APPLIED. FAMILY MEMBERS PRESENT IN ROOM. CALL LIGHT IS WITHIN REACH, PATIENT INSTRUCTED TO CALL FOR ASSISTANCE NEEDED. BEDSIDE SHIFT REPORT GIVEN TO ONCOMING NURSE.
[2019-09-10] VITALS (8 sets, daily range): BP systolic 134–179; BP diastolic 66–81
[2019-09-10] MEDS: ALBUTEROL/IPRATROPIUM 3 ML NEB NEB SCH ×5 (01:40→23:30)
[2019-09-10 03:26] LABS: BASOPHILS # (AUTO) 0.1 (0.0-0.1); BASOPHILS % 0.5 % (0.0-1.0); EOSINOPHILS % 0.2 % (0.0-6.0); LYMPHOCYTES # (AUTO) 1.1 (1.0-3.2); LYMPHOCYTES % 8.1 % (18.0-39.1); MEAN CORPUSCULAR HEMOGLOBIN 32.3 pg (28-32); MEAN CORPUSCULAR HGB CONC 34.3 g/dL (31-35); MEAN CORPUSCULAR VOLUME 94.3 fL (81-99); MONOCYTES # (AUTO) 1.8 (0.2-0.8); MONOCYTES % 13.7 % (4.4-11.3); NEUTROPHILS # (AUTO) 8.7 (2.1-6.9); NEUTROPHILS % 65.9 % (38.7-80.0); PLATELET COUNT 56 x10e3/uL (140-360); RED BLOOD COUNT 2.29 x10e6/uL (3.6-5.1); RED CELL DISTRIBUTION WIDTH 17.9 % (11.7-14.4)
[2019-09-10 03:29] LABS: HEMOGLOBIN 7.4 g/dL (12.0-16.0)
[2019-09-10 03:30] LABS: HEMATOCRIT 21.6 % (34.2-44.1)
[2019-09-10 04:01] LABS: ANION GAP 6.9 mmol/L (8-16); BLOOD UREA NITROGEN 8 mg/dL (7-26); BUN/CREATININE RATIO 13 (6-25); CALCIUM 7.2 mg/dL (8.4-10.2); CARBON DIOXIDE 16 mmol/L (22-29); CHLORIDE 116 mmol/L (98-107); CREATININE, SERUM 0.62 mg/dL (0.57-1.11); EST GLOMERULAR FILTRATION RATE > 60 ML/MIN (60-); GLUCOSE 112 mg/dL (74-118); MAGNESIUM 1.7 MG/DL (1.3-2.1); PHOSPHORUS 0.9 MG/DL (2.3-4.7); SODIUM 136 mmol/L (136-145)
[2019-09-10 04:16] LABS: POTASSIUM 2.9 mmol/L (3.5-5.1)
--- NOTE | 2019-09-10 04:20 | NUR ---
Prince WOODARD notified of abnormal lab results.
[2019-09-10] MEDS ORDERED: POTASSIUM PHOSPHATE 30 MM in SODIUM CHLORIDE 0.9% 250ML 250 ML IV SCH (04:30)
--- NOTE | 2019-09-10 04:30 | NUR ---
Global search done for potassium phosphate not available at this time. Prince WOODARD made aware states to give magnesium sulfate first.
[2019-09-10] MEDS ORDERED: MAGNESIUM SULF 1GRAM/DEXTROSE 100 ML IV ONE (04:45)
[2019-09-10] MEDS: CEFEPIME 2 GM/NS 0.9% 100 ML 100 ML IV SCH ×3 (05:01→22:39)
[2019-09-10] MEDS: INSULIN REGULAR, HUMAN 100 UNIT/1 ML 3ML VIAL SQ SCH ×4 (07:30→20:02)
[2019-09-10] MEDS: FAMOTIDINE 20 MG TAB PO SCH ×2 (07:54→16:29)
--- NOTE | 2019-09-10 09:22 | NUR ---
PT GIVEN BPCI LETTER FOR PARTNERSHIP CARE.
--- NOTE | 2019-09-10 09:23 | NUR ---
GAVE WALKER PER ORDER, OBTAINED ALL SIGNATURES AND FILED IN PACU
--- NOTE | 2019-09-10 10:18 | Progress Note ---
DATE: SUBJECTIVE: The patient feels better. She has less malaise and no fevers. She has been transferred out of the intensive care unit. PHYSICAL EXAMINATION: VITAL SIGNS: The patient is afebrile. The blood pressure is 137/74. Saturation is 98%. The heart rate is 99. HEENT: No facial swelling or erythema. CARDIAC: Regular rate and rhythm with normal S1, S2. LUNGS: Auscultation of lungs reveals rhonchorous breath sounds bilaterally. There is no wheezing. ABDOMEN: Soft, nontender. There is no rebound or guarding. EXTREMITIES: No leg edema or calf tenderness. There is no cyanosis or clubbing. SKIN: No rashes. NEUROLOGICAL: No focal abnormalities. LABORATORY DATA: White blood count is 13.16 and the hemoglobin is 7.4. The platelet count 56. Potassium is 2.9. IMPRESSION: 1. Urinary tract infection with gram-negative bacteremia and severe sepsis, present on admission. 2. Healthcare-associated pneumonia with sepsis, present on admission. 3. Anemia secondary to acute on chronic blood loss. 4. Thrombocytopenia. 5. Pancreatic cancer. 6. Diabetes. PLAN: 1. Continue current antibiotics. 2. Await final culture results. 3. Continue to monitor blood counts. 4. Continue to monitor blood sugars. 5. Out of bed as tolerated. 6. Awaiting speech therapy evaluation. Jon Newton MD [facility]/AVEL /[id number]
[2019-09-10] MEDS ORDERED: POTASSIUM CHLORIDE 20 MEQ TAB CR PO NR (11:45)
--- NOTE | 2019-09-10 15:09 | NUR ---
Nutrition Intervention Note RD Recommendation(s) for Physician: -Continue current diet as ordered -Glucerna nutrition supplement BID for added nutrition Plan of Care: RD following, monitoring for tolerance and adequacy Nutrition reason for involvement: consult RD Assessment (09/09) Pt is a 69 year old female admitted with bronchitis, fever, pancreatic cancer, and septic shock. RD received consult for nutrition assessment. Spoke to pt and family member who primarily speak Chinese. A nursing staff member who speaks Chinese translated information during conversation. Pt reports her appetite is better. During conversation, it was reported that pt is currently eating 75-80% of meals. Per chart, pt has been eating 50-100% of meals during admission. Pt mentioned she had weighed 180 lbs a year and a half ago and now weighs 149 lbs. This would be a 17% weight loss in a year and a half, which is considered to be nonsignificant weight loss. No N/V/D/C noted at this time. Pt usually drinks nutrition supplement drinks at home. Recommend pt receive Glucerna nutrition supplement BID for added nutrition. ST evaluated pt and recommended a mechanical soft diet with thin liquids. Will continue to monitor. Principal Problems/Diagnoses: bronchitis, fever, pancreatic cancer, septic shock PMH: fungemia, HTN, diabetes, Whipple procedure 1 yr ago GI: last recorded BM 09/07 Skin: intact Labs: (09/09) K 2.9, Ca 7.2 Meds: pepcid, lovenox, ergocalciferol, insulin, hydralazine, zofran Ht: 64 inches Wt: 149 lbs BMI: 25.7 kg/m2 IBW: 120 lbs Malnutrition Evaluation (09/10/2019) The patient does not meet criteria for a specified degree of malnutrition at this time. Will re-evaluate at follow-up as appropriate. Nutrition Prescription (Diet Order): 1800 kcal ADA Estimated Nutritional Needs: 7241-6470 calories/day (18-20 kcal/kg CBW) 68-102 g protein/day (1.0-1.5 g pro/kg CBW) Diet Adequacy: During conversation, it was reported that pt is eating 75-80% of meals at this time Tolerance: Tolerating PO Diet Education Needs Assessment: RD is available for diet education as needed Nutrition Care Level: low Nutrition Diagnosis: Unintended weight loss related to predicted h/o inadequate energy intake as evidenced by 17% weight loss in a year and a half per pt. Goal: Patient will meet 75-100% of estimated needs by follow up Progress: N/A Interventions: -carbohydrate- modified diet, Commercial beverage Monitoring/Evaluation: -Total energy intake, Total protein intake, Modified diet, Liquid supplement, Weight change Signed: Bernice Peoples RD, LD
[2019-09-10] MEDS: ENOXAPARIN 30 MG/0.3 ML SYR SC SCH (16:29)
[2019-09-10 17:06] LABS: ANION GAP 8.6 mmol/L (8-16); BLOOD UREA NITROGEN 7 mg/dL (7-26); BUN/CREATININE RATIO 11 (6-25); CALCIUM 7.1 mg/dL (8.4-10.2); CARBON DIOXIDE 17 mmol/L (22-29); CHLORIDE 115 mmol/L (98-107); CREATININE, SERUM 0.62 mg/dL (0.57-1.11); EST GLOMERULAR FILTRATION RATE > 60 ML/MIN (60-); GLUCOSE 189 mg/dL (74-118); POTASSIUM 3.6 mmol/L (3.5-5.1); SODIUM 137 mmol/L (136-145)
--- NOTE | 2019-09-10 19:00 | NUR ---
Patient visited in room during nursing rounds. Patient alert and oriented x3. Pt is yoruba speaking only. Pt ambulates with walker and standby assist prn. Daughter at bedside and was allowed to stay in pt room for extra care and comfort and pt requests daughter to stay and help with care and translation from Icelandic to [place] Irish. [employer] (Mayte Can RN) consented daughter to stay in room for tonight. Pt on scheduled IV antibiotics. Call hyman within reach.
[2019-09-11] VITALS: BP 139/74
[2019-09-11 00:20] VITALS: BP 138/67
--- NOTE | 2019-09-11 00:40 | NUR ---
Called and spoke with Fili Thomas (TUBER MACHINE OPERATOR HELPER for Dr. Bravo) and informed patient's BS dropped 46 around 0015 and was given 1 amp D50 at 0018. BS re-checked at 0033 to be 160. HR around 0020 raised to 155 and currently 148. Fili stated elevated HR might be due to change in blood sugar. Fili also ordered to check fingerstick blood glucose q30min x2, Q1hr x2 then ACHS.
[2019-09-11 04:00] VITALS: BP 136/86
[2019-09-11] MEDS: CEFEPIME 2 GM/NS 0.9% 100 ML 100 ML IV SCH (06:00)
[2019-09-11 06:04] LABS: BASOPHILS # (AUTO) 0.1 (0.0-0.1); BASOPHILS % 0.7 % (0.0-1.0); EOSINOPHILS % 0.2 % (0.0-6.0); HEMATOCRIT 24.1 % (34.2-44.1); HEMOGLOBIN 8.2 g/dL (12.0-16.0); LYMPHOCYTES # (AUTO) 1.1 (1.0-3.2); LYMPHOCYTES % 8.1 % (18.0-39.1); MEAN CORPUSCULAR HEMOGLOBIN 32.4 pg (28-32); MEAN CORPUSCULAR VOLUME 95.3 fL (81-99); MONOCYTES # (AUTO) 2.5 (0.2-0.8); MONOCYTES % 17.9 % (4.4-11.3); NEUTROPHILS # (AUTO) 7.6 (2.1-6.9); NEUTROPHILS % 53.9 % (38.7-80.0); PLATELET COUNT 81 x10e3/uL (140-360); RED BLOOD COUNT 2.53 x10e6/uL (3.6-5.1); RED CELL DISTRIBUTION WIDTH 18.4 % (11.7-14.4)
[2019-09-11 06:28] LABS: ANION GAP 8.6 mmol/L (8-16); BLOOD UREA NITROGEN 8 mg/dL (7-26); BUN/CREATININE RATIO 13 (6-25); CALCIUM 7.5 mg/dL (8.4-10.2); CARBON DIOXIDE 18 mmol/L (22-29); CHLORIDE 113 mmol/L (98-107); CREATININE, SERUM 0.61 mg/dL (0.57-1.11); EST GLOMERULAR FILTRATION RATE > 60 ML/MIN (60-); GLUCOSE 136 mg/dL (74-118); MAGNESIUM 1.6 MG/DL (1.3-2.1); POTASSIUM 3.6 mmol/L (3.5-5.1); SODIUM 136 mmol/L (136-145)
[2019-09-11] MEDS: FAMOTIDINE 20 MG TAB PO SCH (06:35)
[2019-09-11] MEDS: ALBUTEROL/IPRATROPIUM 3 ML NEB NEB SCH ×2 (06:54→13:24)
[2019-09-11] MEDS: INSULIN REGULAR, HUMAN 100 UNIT/1 ML 3ML VIAL SQ SCH ×2 (07:30→11:30)
[2019-09-11 08:26] VITALS: BP 135/65
[2019-09-11 08:29] VITALS: BP 135/65
[2019-09-11] MEDS ORDERED: KEFLEX500 MG PO (11:40)
[2019-09-11] MEDS ORDERED: CEFAZOLIN SOD 1 GM/NS 50ML 50 ML IV SCH (12:00)
[2019-09-11 12:06] VITALS: BP 142/75
--- NOTE | 2019-09-11 12:17 | Progress Note ---
DATE: SUBJECTIVE: The patient feels better. She is eager to go home. PHYSICAL EXAMINATION: VITAL SIGNS: Stable. HEENT: Shows no facial swelling or erythema. CARDIAC: Reveals regular rate and rhythm with normal S1 and S2. LUNGS: Auscultation of lungs reveals clear breath sounds bilaterally. There is no wheezing. ABDOMEN: Soft and nontender. IMPRESSION: 1. Urinary tract infection with gram-negative bacteremia and severe sepsis, present on admission. 2. Healthcare-associated pneumonia with sepsis, present on admission. 3. Thrombocytopenia. 4. Anemia. 5. Pancreatic cancer. 6. Diabetes. PLAN: 1. Continue current antibiotics. 2. Await culture results. 3. Continue to monitor blood sugars. 4. Out of bed as tolerated. 5. Possible discharge home today. Jon Newton MD [facility]/MODL /[id number]
[2019-09-11] MEDS ORDERED: ONDANSETRON HCL 4 MG ORAL DISINTEGRATING TAB PO PRN (13:30)
--- NOTE | 2019-09-11 15:31 | NUR ---
Patient discharged home, Central line removed from rt side of neck, pressure bandage applied, no bleeding or hematoma, prescription given, denies any pain, no distress noted. Transported via wheelchair to [facility].
--- NOTE | 2019-09-11 23:06 | Discharge Summary ---
ADMISSION DIAGNOSES: 1. Healthcare-associated pneumonia with septic shock, present on admission. 2. Pancreatic cancer with chemo. 3. Type 2 diabetes. 4. Anemia of chronic disease secondary to pancreatic cancer. 5. Hypertension. 6. Hypokalemia. 7. Acute kidney injury. DISCHARGE DIAGNOSES: 1. Healthcare-associated pneumonia with septic shock, present on admission. 2. Pancreatic cancer with chemo. 3. Type 2 diabetes. 4. Anemia of chronic disease secondary to pancreatic cancer. 5. Hypertension. 6. Hypokalemia. 7. Acute kidney injury. 8. Rule out flu. 9. Escherichia coli bacteremia present on admission. HISTORY: 1. Type 2 diabetes. 2. Hypertension. 3. Pancreatic cancer. PAST SURGICAL HISTORY: 1. Whipple. 2. Resection of jejunostomy. 3. Exploratory laparotomy. 4. Cholecystectomy. SOCIAL HISTORY: Noncontributory. HOSPITAL COURSE: A 69-year-old female with past medical history of pancreatic cancer with chemo, admits with complaints of generalized weakness over the last 3 days. Her last chemo was on Sunday. In the ER, she had a lactic of 8.2, a temp of 100.5, and a WBC of 5.4. She was admitted and started on cefepime. Pulmonology, Hematology, and Infectious Disease were consulted. Chest x-ray on admission showed hyperinflated lungs with bronchial wall thickening suggestive of bronchitis. No evidence of lobar pneumonia. She had a right IJ placed due to the septic shock. The patient was given fluid and recovered quickly. Urine culture was negative. Initial blood culture showed E coli. Flu swab was negative. The patient will discharge home with two more weeks of Keflex per Infectious Disease recommendation. She will follow up with primary care in 1 to 2 weeks and Oncology as scheduled. The patient and family understand discharge instructions and agrees to plan. The patient was provided with a rolling walker prior to discharge. Dictated by Lisa Kruger NP Richard Bravo MD [facility]/MODL /[id number]
== END 2019-09-11 15:30 | disposition home or self-care (01) | DRG 871 ==
LOC: ER 00:50 → ERHOLD 05:10 → ICU 05:45 → MED/SURG3 09-08 17:41
PROVIDERS: ADMIT Internal Medicine; ATTEND Internal Medicine
PROC: 02HV33Z Insertion of Infusion Device into Superior Vena Cava, Percutaneous Approach (ICD-10-PCS; principal; 2019-09-07)
DX: A41.9 Sepsis, unspecified organism (principal); J18.9 Pneumonia, unspecified organism; R65.21 Severe sepsis with septic shock; N17.9 Acute kidney failure, unspecified; C25.9 Malignant neoplasm of pancreas, unspecified; D50.0 Iron deficiency anemia secondary to blood loss (chronic); D69.6 Thrombocytopenia, unspecified; E11.65 Type 2 diabetes mellitus with hyperglycemia; Y95 Nosocomial condition
CPT/HCPCS: 36415; 71045; 80048; 80053; 81001; 82550; 82553; 82948; 83036; 83605; 83735; 84100; 84443; 84484; 85025; 85610; 85730; 86850; 86900; 86920; 87040; 87071; 87086; 87186; 87205; 87400; 93005; 94640; 97139; 99284; J0456; J0690; J1650; J1817; J2001; J3370; J3475; J7030; J7050; J7799; P9016

== ENCOUNTER 2019-11-04 18:29 | Emergency (ER) | payer MEDICARE, OTHER ==
[~2019-11-04] VITALS: Ht 162.6 cm; Wt 67.6 kg
[~2019-11-04 18:29] MED LIST changes: +KEFLEX500 MG PO
[2019-11-04] MEDS ORDERED: PIPER-TAZ 3.375 GM 50 ML IV STA (19:51)
[2019-11-04] MEDS ORDERED: SODIUM CHLORIDE 0.9% 1000ML 1,000 ML IV STA ×3 (19:51→21:18)
[2019-11-04 21:04] LABS: EOSINOPHILS # (AUTO) 0.1 (0.0-0.4); EOSINOPHILS % 0.2 % (0.0-6.0); HEMATOCRIT 23.8 % (34.2-44.1); HEMOGLOBIN 8.5 g/dL (12.0-16.0); LYMPHOCYTES # (AUTO) 0.3 (1.0-3.2); LYMPHOCYTES % 0.4 % (18.0-39.1); MEAN CORPUSCULAR HEMOGLOBIN 34.4 pg (28-32); MEAN CORPUSCULAR HGB CONC 35.7 g/dL (31-35); MEAN CORPUSCULAR VOLUME 96.4 fL (81-99); MONOCYTES % 1.5 % (4.4-11.3); NEUTROPHILS # (AUTO) 60.2 (2.1-6.9); NEUTROPHILS % 95.2 % (38.7-80.0); PLATELET COUNT 147 x10e3/uL (140-360); RED BLOOD COUNT 2.47 x10e6/uL (3.6-5.1); RED CELL DISTRIBUTION WIDTH 17.7 % (11.7-14.4)
[2019-11-04 21:12] LABS: INR 1.46; PROTHROMBIN TIME 18.7 seconds (11.9-14.5)
[2019-11-04 21:21] LABS: ALANINE AMINOTRANSFERASE 54 IU/L (0-55); ALBUMIN 1.4 g/dL (3.5-5.0); ALBUMIN/GLOBULIN RATIO 0.4 (0.8-2.0); ALKALINE PHOSPHATASE 778 IU/L (40-150); ANION GAP 17.9 mmol/L (8-16); BLOOD UREA NITROGEN 22 mg/dL (7-26); BUN/CREATININE RATIO 19 (6-25); CALCIUM 7.9 mg/dL (8.4-10.2); CARBON DIOXIDE 14 mmol/L (22-29); CHLORIDE 101 mmol/L (98-107); CREATINE KINASE 19 IU/L (29-168); CREATININE, SERUM 1.17 mg/dL (0.57-1.11); EST GLOMERULAR FILTRATION RATE 46 ML/MIN (60-); GLUCOSE 264 mg/dL (74-118); POTASSIUM 3.9 mmol/L (3.5-5.1); SODIUM 129 mmol/L (136-145)
[2019-11-04 21:25] LABS: LIPASE < 4 U/L (8-78)
[2019-11-04 21:35] LABS: B-TYPE NATRIURETIC PEPTIDE2 161.1 pg/mL (0-100)
[2019-11-04] MEDS ORDERED: VANCOMYCIN 1GM/NS 250 ML 250 ML IV STA (22:05)
[2019-11-04 22:06] LABS: ABG HCO3 15 mmol/L (22-26); ABG PCO2 18 mmHg (35-45); ABG PH 7.52 (7.35-7.45); ABG PO2 133 mmHg (80-105)
--- NOTE | 2019-11-04 23:13 | NUR ---
PT RESTING, VITAL SIGNS STABLE, FAMILY AT BEDSIDE, PT AND FAMILY AWARE OF POC TO TRANSFER PT TO [facility], PT VOICES NO COMPLAINTS AT THIS TIME
[2019-11-04] MEDS ORDERED: IOPAMIDOL 370 MG/ML 200 ML INFUS..BTL INJ ONE (23:55)
[2019-11-04] MEDS ORDERED: SODIUM CHLORIDE 0.9% 50ML 50 ML ONE (23:56)
--- NOTE | 2019-11-05 01:31 | NUR ---
[facility] CALLED ETA 15 MINUTES
--- NOTE | 2019-11-05 01:43 | Emergency Department Note ---
History of Present Illnes History of Present Illness Chief Complaint: Abdominal Complaints Stated Complaint: YELLOW SKIN,DARK URINE,NO APPETITE History of Present Illness This is a 69 year old female sent by Dr Ball for "evaluation for admission". Patient with diagnosis of stage IV pancreatic CA and has been receiving chemotherapy for treatment. Patient seen at bedside acutely ill. Refererred by PCP for evaluation of abdominal pain . 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 Any updates have been documented here. Past Medical History Recent Fever: No Clinical Suspicion of Infectio: No New/Unexplained Change in Ment: No Past Medical History: Hypertension, Diabetes, Cancer, Hyperlipedemia Other Medical History: chemotherapy for last 3 months Past Surgical History: Cholecysctectomy Social History Smoking Cessation: Never Smoker Alcohol Use: None Other Last Tetanus: UNKNOWN Review of Systems Review of Systems Constitutional: weakness EENTM: no symptoms Cardiovascular: no symptoms Respiratory: dyspnea Gastrointestinal: abdominal pain Genitourinary: no symptoms Musculoskeletal: no symptoms Integumentary: no symptoms Neurological: weakness Psychological: no symptoms Endocrine: no symptoms Hematological/Lymphatic: no symptoms Review of other systems All other systems reviewed and negative. Physical Exam Related Data Allergies: Coded Allergies: No Known Allergies (Unverified , 08/12/18) Triage Vital Signs Vital Signs Date Time Temp Pulse Resp B/P (MAP) Pulse Ox O2 Delivery O2 Flow Rate FiO2 11/04/19 19:15 99.8 110 21 94/58 99 Physical Exam CONSTITUTIONAL Constitutional: cachectic, distressed, ill appearing HENT HENT: normocephalic, mucosae dry HENT - Ear: left ext ear normal, right ext ear normal EYES Eyes: PERRL, scleral icterus NECK Neck: ROM normal PULMONARY Pulmonary: breath sounds normal CARDIOVASCULAR Cardiovascular: heart sounds normal, tachycardia GASTROINTESTINAL Abdominal: distension, tender GENITOURINARY Genitourinary: exam deferred SKIN Skin: jaundiced MUSCULOSKELETAL Musculoskeletal: ROM normal NEUROLOGICAL Neurological: alert, oriented x 3, no gross motor or sensory deficits PSYCHOLOGICAL Psychiatric/behavioral: mood/affect normal, judgement normal Results Laboratory Lab results reviewed: Yes Laboratory comments Laboratory Tests Test 11/04/19 20:58 11/04/19 20:48 11/04/19 20:46 11/04/19 20:30 Arterial Blood pH 7.52 (7.35-7.45) Arterial Blood Partial Pressure CO2 18 mmHg (35-45) Arterial Blood Partial Pressure O2 133 mmHg (80-105) Arterial Blood HCO3 15 mmol/L (22-26) Arterial Blood Oxygen Saturation 99.0 % (95-98) Arterial Blood Base Excess -8.0 mmol/L (-2 - 3) FiO2 % Influenza Virus Types A,B Antigen Negative (NEGATIVE) White Blood Count 63.27 x10e3/uL (4.8-10.8) Red Blood Count 2.47 x10e6/uL (3.6-5.1) Hemoglobin 8.5 g/dL (12.0-16.0) Hematocrit 23.8 % (34.2-44.1) Mean Corpuscular Volume 96.4 fL (81-99) Mean Corpuscular Hemoglobin 34.4 pg (28-32) Mean Corpuscular Hemoglobin Concent 35.7 g/dL (31-35) Red Cell Distribution Width 17.7 % (11.7-14.4) Platelet Count 147 x10e3/uL (140-360) Neutrophils (%) (Auto) 95.2 % (38.7-80.0) Lymphocytes (%) (Auto) 0.4 % (18.0-39.1) Monocytes (%) (Auto) 1.5 % (4.4-11.3) Eosinophils (%) (Auto) 0.2 % (0.0-6.0) Basophils (%) (Auto) 0.0 % (0.0-1.0) Neutrophils # (Auto) 60.2 (2.1-6.9) Lymphocytes # (Auto) 0.3 (1.0-3.2) Monocytes # (Auto) 1.0 (0.2-0.8) Eosinophils # (Auto) 0.1 (0.0-0.4) Basophils # (Auto) 0.0 (0.0-0.1) Absolute Immature Granulocyte (auto 1.70 x10e3/uL (0-0.1) Prothrombin Time 18.7 seconds (11.9-14.5) Prothromb Time International Ratio 1.46 Sodium Level 129 mmol/L (136-145) Potassium Level 3.9 mmol/L (3.5-5.1) Chloride Level 101 mmol/L (98-107) Carbon Dioxide Level 14 mmol/L (22-29) Anion Gap 17.9 mmol/L (8-16) Blood Urea Nitrogen 22 mg/dL (7-26) Creatinine 1.17 mg/dL (0.57-1.11) Estimat Glomerular Filtration Rate 46 ML/MIN (60-) BUN/Creatinine Ratio 19 (6-25) Glucose Level 264 mg/dL (74-118) Lactic Acid Level 8.2 mmol/L (0.5-2.0) Calcium Level 7.9 mg/dL (8.4-10.2) Total Bilirubin 11.8 mg/dL (0.2-1.2) Aspartate Amino Transf (AST/SGOT) 87 IU/L (5-34) Alanine Aminotransferase (ALT/SGPT) 54 IU/L (0-55) Alkaline Phosphatase 778 IU/L (40-150) Creatine Kinase 19 IU/L (29-168) Creatine Kinase MB 0.40 ng/mL (0-5.0) Troponin I 0.024 ng/mL (0-0.300) B-Type Natriuretic Peptide 161.1 pg/mL (0-100) Total Protein 5.4 g/dL (6.5-8.1) Albumin 1.4 g/dL (3.5-5.0) Globulin 4.0 g/dL (2.3-3.5) Albumin/Globulin Ratio 0.4 (0.8-2.0) Lipase < 4 U/L (8-78) Imaging Y: Yes Critical Care Time Total Critical Care Time (min): 31 Critcal care necessary due to: shock Critcal care time spent by me: develop tx plan w patient/surrogate, discussion w consultants, examination of patient Assessment & Plan Assessment & Plan Problems: (1) Septic shock (2) Pneumonia (3) Jaundice (4) Renal insufficiency (5) Pancreatic cancer (6) Biliary obstruction due to malignant neoplasm Depart Disposition: TRANS TO OTHER [facility] Home Meds Active Scripts Cephalexin Monohydrate (KEFLEX) 500 Mg Capsule, 500 MG PO Q8HR, #42 Prov:MADELINE HOPKINS SOCCER PLAYER 09/11/19 Reported Medications Permethrin (PERMETHRIN) 60 Gm Cream..g., 1 TUBE TOP WEEKLY 08/13/18 Cholecalciferol (Vitamin D3) (VITAMIN D) 1,000 Unit Tablet, 59732 UNIT PO ONCE PER WEEK, #30 TAB 08/12/18 Lovastatin (LOVASTATIN) 20 Mg Tablet, DAILY 08/12/18 Pioglitazone Hcl (PIOGLITAZONE HCL) 45 Mg Tablet, 45 MG PO DAILY, #30 TAB 08/12/18 Lisinopril (LISINOPRIL) 2.5 Mg Tablet, 5 MG PO DAILY, #30 TAB 08/12/18 Metformin Hcl (METFORMIN HCL) 1,000 Mg Tablet, 1000 MG PO BID 08/12/18 Medications in the ED Sodium Chloride 1,000 ml @ 0 mls/hr Q0M STAT IV Last administered on 11/04/19at 21:49; Admin Dose 1,000 MLS/HR; Start 11/04/19 at 19:51; Stop 11/04/19 at 19:53; Status DC Piperacillin Sod/ Tazobactam Sod 50 ml @ 50 mls/hr ONCE STAT IV Last administered on 11/04/19at 21:50; Admin Dose 50 MLS/HR; Start 11/04/19 at 19:51; Stop 11/04/19 at 20:50; Status DC Sodium Chloride 1,000 ml @ 0 mls/hr Q0M STAT IV Last administered on 11/04/19at 23:04; Admin Dose 1,000 MLS/HR; Start 11/04/19 at 21:18; Stop 11/04/19 at 21:20; Status DC Sodium Chloride 1,000 ml @ 0 mls/hr Q0M STAT IV Last administered on 11/05/19at 01:58; Admin Dose 1,000 MLS/HR; Start 11/04/19 at 21:18; Stop 11/04/19 at 21:20; Status DC Vancomycin HCl 250 ml @ 200 mls/hr ONCE STAT IV Last administered on 11/04/19at 23:04; Admin Dose 200 MLS/HR; Start 11/04/19 at 22:05; Stop 11/04/19 at 23:19; Status DC Iopamidol 74,000 mg STK-MED ONCE INJ ; Start 11/04/19 at 23:55; Stop 11/04/19 at 23:50; Status DC Sodium Chloride 50 ml @ ud STK-MED ONCE .ROUTE ; Start 11/04/19 at 23:56; Stop 11/04/19 at 23:50; Status DC Sodium Chloride 1,000 ml @ ud STK-MED ONCE .ROUTE ; Start 11/05/19 at 01:59; Stop 11/05/19 at 01:54; Status DC ARNIE HERRERA DO November 04, 2019 19:56
[2019-11-05] MEDS ORDERED: SODIUM CHLORIDE 0.9% 1000ML 1,000 ML ONE (01:59)
[2019-11-05 02:00] VITALS: BP 108/54
--- NOTE | 2019-11-05 02:04 | NUR ---
[facility] HERE FOR TRANSFER, PT AND FAMILY AWARE OF POC, ALL QUESTIONS ANSWERED
--- NOTE | 2019-11-05 02:27 | Diagnostic Imaging Report ---
EXAMINATION: Chest one view INDICATION: Septic shock COMPARISON: 09/08/2019 FINDINGS: TUBES and LINES: Right subclavian chest port. LUNGS: Ill-defined opacity of the right lung base is unchanged when compared to the previous study from 09/08/2019. Fullness of the pulmonary vasculature. PLEURA: No pleural effusion or pneumothorax. HEART AND MEDIASTINUM: The cardiomediastinal silhouette is unremarkable. BONES AND SOFT TISSUES: No acute osseous lesion. Soft tissues are unremarkable. UPPER ABDOMEN: No free air under the diaphragm. IMPRESSION: Fullness of the pulmonary vasculature suggestive of pulmonary venous congestion. Ill-defined right lung airspace disease is unchanged when compared to the previous study from August 2019 and may reflect atelectasis and/or scarring. Pneumonia may appear similar. Signed by: Jensen Gipson MD on 11/05/2019 2:15 AM
--- NOTE | 2019-11-05 02:34 | Diagnostic Imaging Report ---
EXAM: CT Abdomen and Pelvis WITH contrast INDICATION: Abdominal pain COMPARISON: None. TECHNIQUE: Abdomen and pelvis were scanned utilizing a multidetector helical scanner from the lung base to the pubic symphysis after administration of IV contrast. Coronal and sagittal reformations were obtained. Routine protocol was performed. Scan was performed when during portal venous phase. IV CONTRAST: 100 mL of Isovue 370 ORAL CONTRAST: Water COMPLICATIONS: None RADIATION DOSE: Total DLP: 583 mGy*cm Estimated effective dose: (DLP x 0.015 x size factor) mSv CTDIvol has been reviewed. It is below the limits set by the Radiation Protocol Committee (RPC). Dose modulation, iterative reconstruction, and/or weight based adjustment of the mA/kV was utilized to reduce the radiation dose to as low as reasonably achievable. FINDINGS: LINES and TUBES: None. LOWER THORAX: Patchy groundglass opacities of the lung bases, likely scarring. No pleural effusion. HEPATOBILIARY: Several hypodense solid lesions within the liver consistent with metastatic disease, notably a 2.4 cm lesion of the right hepatic lobe (image 18). Moderate intrahepatic biliary ductal dilatation. GALLBLADDER: Surgically absent. SPLEEN: No splenomegaly. PANCREAS: Surgical changes suggestive of previous Whipple procedure. Ill-defined soft tissue mass in the expected region of the pancreatic head that measures approximately 4.6 x 2.5 cm (image 33). This soft tissue encases the hepatic artery and abuts the portal confluence. The soft tissue results in significant narrowing of the extrahepatic portal vein. ADRENALS: No adrenal nodules KIDNEYS/URETERS: Kidneys enhance symmetrically. No hydronephrosis. Right renal simple cyst. No stones. GI TRACT: Surgical changes suggestive of previous Whipple procedure. Extensive mucosal thickening and enhancement that involves the stomach, small bowel, and colon. Dilated small bowel loops within the left anterior abdomen measuring up to 5.9 cm in caliber (image 56). No discrete pneumatosis. PELVIC ORGANS/BLADDER: Grossly unremarkable. LYMPH NODES: No gross adenopathy. VESSELS: Scattered vascular calcifications. PERITONEUM / RETROPERITONEUM: Moderate ascites. Diffuse mesenteric edema. BONES: Acute osseous abnormalities. SOFT TISSUES: Diffuse soft tissue edema. IMPRESSION: 1. Presumed remote Whipple procedure for pancreatic head malignancy. Ill-defined soft tissue in the expected region of the pancreatic head is concerning for recurrent disease. 2. The presumed recurrent malignancy results in biliary obstruction with associated moderate intrahepatic biliary dilatation. The malignancy also results in significant narrowing of the extrahepatic portal vein. 3. Hepatic metastasis. 4. Diffuse inflammatory changes of the gastric, small bowel, and colonic mucosa consistent with nonspecific enterocolitis. Infectious and inflammatory etiologies (such as treatment-related) are most likely. Dilatation of small bowel within the anterior abdomen may reflect developing small bowel obstruction and/or poor motility. 5. Moderate ascites. Signed by: Jensen Gipson MD on 11/05/2019 2:29 AM
== END 2019-11-05 02:03 | disposition other institution (70) ==
LOC: ER 18:29
DX: R10.9 Unspecified abdominal pain (principal); R65.21 Severe sepsis with septic shock; K83.1 Obstruction of bile duct; R17 Unspecified jaundice; C25.9 Malignant neoplasm of pancreas, unspecified; J18.9 Pneumonia, unspecified organism; N28.9 Disorder of kidney and ureter, unspecified
CPT/HCPCS: 36415; 36600; 71045; 74177; 80053; 82550; 82553; 82805; 83605; 83690; 83880; 84484; 85025; 85610; 87040; 87071; 87205; 87400; 87635; 93005; 99284; J2543; J3370; J7030 ×2; Q9967; 87186